=== PATIENT | female | born 1955 | race Caucasian/White ===

== ENCOUNTER → 2018-07-30 11:09 | Outpatient (CLI) | payer MEDICARE, OTHER, SELFPAY ==
[2018-07-30 11:39] LABS: Add Manual Diff / Slide Review NO; Basophils Absolute Auto 100 /uL (0-100); Basophils Percent Auto 0.7 % (0-2); Eosinophils Absolute Auto 300 /uL (0-450); Eosinophils Percent Auto 3.5 % (2-4); Hemoglobin 13.2 g/dL (12.0-16.0); Lymphocytes Absolute Auto 2400 /uL (1100-4500); Lymphocytes Percent Auto 28.2 % (25-40); Mean Corpuscular HGB Conc 34.8 % (30-36); Mean Corpuscular Hemoglobin 27.8 PG (26-34); Monocytes Absolute Auto 500 /uL (0-900); Monocytes Percent Auto 5.9 % (3-14); Neutrophils Absolute Auto 5200 /uL (1500-7000); Neutrophils Percent Auto 61.7 % (50-75); Platelet Count 242 X10^3/uL (150-400); Red Blood Cell Count 4.75 X10^6/uL (4.0-5.2); Red Cell Distribution Width 14.1 % (11.6-14.8); White Blood Cell Count 8.5 X10^3/uL (4.5-11.0)
[2018-07-30 11:51] LABS: Alanine Aminotransferase 37 IU/L (9-52); Albumin 4.6 g/dL (3.5-5.0); Albumin Globulin Ratio 1.7 (1.0-2.8); Alkaline Phosphatase 75 U/L (38-126); Aspartate Aminotransferase 29 IU/L (14-36); BUN Creatinine Ratio 17.5 (6-22); Bilirubin Total 0.5 mg/dL (0.2-1.3); Blood Urea Nitrogen 14 mg/dL (7-17); Calcium 9.2 mg/dL (8.4-10.2); Carbon Dioxide 28 mmol/L (22-32); Chloride 102 mmol/L (98-107); Cholesterol 174 mg/dL (140-199); Creatine Kinase 39 U/L (30-135); Estimated Glomerular Filt Rate > 60.0 mL/min (>60); Globulin 2.7 g/dL (1.7-4.1); Glucose 96 mg/dL (80-110); HDL Cholesterol 46 mg/dL (40-60); HEMOLYSIS < 15 (0-50); LDL Cholesterol Calculated 71 mg/dL (<100); Potassium 4.1 mmol/L (3.4-5.1); Sodium 139 mmol/L (137-145); Total Protein 7.3 g/dL (6.3-8.2); Triglycerides 283 mg/dL (35-150)
[2018-07-30 13:13] LABS: Free T4, Direct Thyroxine 0.85 ng/dL (0.78-2.19)
[2018-07-31 13:23] LABS: Aldolase 4.5 U/L (< 8.2)
== END ==
PROVIDERS: PCP Internal Medicine; Visit Provider Internal Medicine
DX: E03.9 Hypothyroidism, unspecified (principal); E78.5 Hyperlipidemia, unspecified; R06.00 Dyspnea, unspecified
CPT/HCPCS: 36415; 80053; 80061; 82085; 82550; 84439; 84443; 85025

== ENCOUNTER → 2018-08-03 08:31 | Outpatient (CLI) | payer MEDICARE, OTHER, SELFPAY ==
--- NOTE | 2018-08-03 | DI.ECHO.S_ITS ---
[facility] +---------+ : : [address] : [address] : : : : [id number] : : : : Phone: [phone]+ Echocardiogram Report + + :Name: BEN CHAKRABORTY Study Date: 08/03/2018 Height: 66 in : :[facility] Weight: 183 lb : : Gender: Female BSA: 1.9 m2 : :: 1955 Age: 63 yrs BP: 152/82 mmHg: :Reason For Study: Dyspnea : : Performed By: Kaitlyn Dawson : :Referring: NIRAV MENDOZA L : + + Interpretation Summary Normal sinus rhythm. Normal LV size, wall thickness, wall motion and LV systolic function. EF is 60-65%. Stage II diastolic dysfunction. No significant valvular abnormalities. No prior study available for comparison. Procedure: A two-dimensional transthoracic echocardiogram with color flow and Doppler was performed. The study quality was technically adequate. There is no prior echocardiogram noted for this patient. The patient was in normal sinus rhythm during the exam. Left Ventricle: The left ventricle is normal in size, wall thickness, and systolic function without any focal wall motion abnormalities. The ejection fraction is estimated to be 55-60%. Diastolic parameters suggest a relaxation abnormality of the left ventricle, consistent with probable normal filling pressures. Right Ventricle: The right ventricle grossly appears normal in size with probable normal systolic function. Atria: The left atrial size is normal. Right atrial size is normal. The interatrial septum is intact with no evidence for an atrial septal defect. Mitral Valve: The mitral valve is normal in structure and function. There is trace mitral regurgitation. Aortic Valve: The aortic valve opens well. No aortic regurgitation is present. Tricuspid Valve: The tricuspid valve is normal in structure and function. There is a trace or physiologic amount of tricuspid regurgitation. The right ventricular systolic pressure is estimated to be at least 25 mmHg based on an estimated right atrial pressure of 3 mm Hg. Pulmonic Valve: The pulmonic valve is not well visualized. There is a trace or physiologic amount of pulmonic regurgitation. Great Vessels: The aortic root is normal size. The ascending aorta is mildly enlarged. The IVC is of normal diameter and collapses greater than 50% with a sniff. This suggests a low right atrial pressure of 3 mm Hg. Pericardium/ Pleura There is no pericardial effusion. There is no pleural effusion. MMode/2D Measurements & Calculations LVIDd: 4.5 cm Ao root diam: 3.2 cm LVIDs: 3.4 cm Aortic Jxn: 3.0 cm FS: 23.3 % asc Aorta Diam: 3.8 cm EPSS: 0.69 cm Ao Arch Diam (Prox Trans): 2.9 cm IVSd: 1.1 cm LVPWd: 0.94 cm LV quiñones. diameter/BSA (cm/m^2): 2.3 LV sys. diameter/BSA (cm/m^2): 1.8 LA dimension: 3.8 cm RA long axis: 4.8 cm LA A2 area: 19.5 cm2 RA area: 16.1 cm2 LA A4 area: 20.1 cm2 RA vol: 45.4 ml LA length (vol): 5.4 cm RA : 23.6 ml/m2 LA vol: 61.3 ml IVC diam: 1.9 cm LA vol index: 31.8 ml/m2 RVDd major: 5.3 cm RVD1 (basal): 3.5 cm RVD2 (mid): 2.9 cm Doppler Measurements & Calculations Ao V2 max: 171.2 cm/sec MV E max moy: 91.6 cm/sec Ao V2 mean: 120.6 cm/sec MV A max moy: 88.1 cm/sec Ao max P.7 mmHg MV E/A: 1.0 Ao mean P.7 mmHg Med Peak E' Moy: 4.5 cm/sec Ao V2 VTI: 39.5 cm E/E' med: 20.2 Lat Peak E' Moy: 7.9 cm/sec E/E' lat: 11.6 E/e' average: 15.9 MV dec time: 0.19 sec MV P1/2t: 57.0 msec TR max moy: 236.3 cm/sec MV P1/2t max moy: 91.2 cm/sec TR max P.3 mmHg MVA(P1/2t): 3.9 cm2 PA V2 max: 90.9 cm/sec PA V2 mean: 56.7 cm/sec PA mean P.5 mmHg PA Accel Time: 0.14 sec Electronically signed by: Marika Fried M.D. on Reading Physician:08/04/2018 07:42 AM
== END ==
PROVIDERS: PCP Internal Medicine; Visit Provider Internal Medicine
DX: R06.00 Dyspnea, unspecified (principal)
CPT/HCPCS: 93306

== ENCOUNTER → 2018-08-17 12:36 | Outpatient (CLI) | payer MEDICARE, OTHER, SELFPAY ==
--- NOTE | 2018-08-25 10:49 | P.PFT.S_ITS ---
Pulmonary Function Test Referral & Results Date Patient Seen: 08/17/18 Requesting provider: Medina Stevenson Indication: Dyspnea Results: The spirometry demonstrates an FVC of 3.15 L which is 92% of predicted. The FEV1 was measured at 2.33 L which is 89% of predicted. The FEV1/FVC ratio was 70 for which is 96% of predicted. Following the administration of bronchodilator there was no appreciable change. Lung volumes show an SVC of 3.09 L which is 97% of predicted. The diffusing capacity was measured at 21.79 which is 80% of predicted. No hemoglobin value was provided, so no correction for potential anemia could be made, if appropriate. The maximum voluntary ventilation was normal Interpretation: This study demonstrates perhaps very mild obstructive lung dis ease based on slight reduction in FEV1. There is no evidence of benefit following bronchodilator administration There may also be a minimal reduction in diffusing capacity, unless patient is anemic Clinical correlation suggested
== END ==
PROVIDERS: PCP Internal Medicine; Visit Provider Internal Medicine
DX: R06.09 Other forms of dyspnea (principal)
CPT/HCPCS: 94060; 94726; 94729

== ENCOUNTER → 2018-09-11 13:27 | Outpatient (CLI) | payer MEDICARE, OTHER, SELFPAY ==
--- NOTE | 2018-09-11 15:08 | P.PCN_ITS ---
Cardiac Stress Test Report Referral & Results Date Patient Seen: 09/11/18 Requesting provider: Medina Stevenson Indication: Dyspnea with exertion Rest ECG: Unremarkable Procedure Note: Today following both written and verbal informed consent the patient was exercised according to a standard Brian protocol patient went for a total of 8 minutes 17 seconds achieving a maximum heart rate of 155 maximum systolic blood pressure of to under 10. This is approximately 10.1 METS. Exercise was terminated at this point because of inability the patient to continue because of dyspnea and targets were met. Patient was also given Cardiolite through a previously started Hep-Lock IV by the nuclear licensing engineer approximately 1 minute prior to the cessation of exercise. No ST-T segment changes Normal heart rate and blood pressure response Functional aerobic impairment rated-20% on the active scale or 20% better than average Rare PVC identified Impression: No ECG evidence of ischemia Better than average exercise capacity as above Please see perfusion imaging report as well Please note: Actual ECG tracings can be found in the PACS system.
--- NOTE | 2018-09-12 15:11 | DI.NM.S_ITS ---
DATE OF SERVICE: 09/11/2018 PROCEDURE: Exercise perfusion study. INDICATIONS: Shortness of breath with underlying hypertension, hyperlipidemia. RADIOPHARMACEUTICAL: 23.3 mCi technetium-99m Myoview IV was injected at stress and 26.9 mCi technetium-99m Myoview IV was injected at rest. CARDIAC STRESS: Patient underwent exercise perfusion study under the supervision of an attending staff. She walked on Brian protocol for 8 minutes 17 seconds, achieved 10.1 Mets of workload, functional aerobic impairment -20% and 100 % of target heart rate. Baseline blood pressure 130/84. Peak blood pressure 210/100. Baseline EKG revealed sinus rhythm. Stress EKG did not reveal any significant ischemic changes. Occasional PACs. Patient had fatigue and dyspnea during exercise. RAW DATA: There was adequate myocardial uptake. GATED STUDY: Resting LV ejection fraction 78% and stress LV ejection fraction 87%. No transient ischemic dilatation. Resting end-diastolic volume is 91 mL. TID ratio is 0.82, which is within normal limits. Lung/heart ratio is 0.17. MYOCARDIAL PERFUSION SCAN: Stress supine, resting supine, and stress prone images were compared to each other. Resting supine images revealed small-sized mildly decreased perfusion of mid anterior wall and distal anterior septum. However, stress supine and stress prone images revealed normal myocardial perfusion. No convincing ischemia infarction pattern. CONCLUSION: I will call this study a normal myocardial perfusion study without any evidence of convincing ischemia infarction. No ischemic changes during EKG. Mildly hypertensive blood pressure response. Good exercise capacity. Functional aerobic impairment -20%. Preserved left ventricular (LV) function. Overall this is a low-risk myocardial perfusion study. Martina Ackerman - ALEXANDRE/penelope/ doc#: [id number]/job#: [id number] dd: 09/12/2018 12:39:00 dt: 09/12/2018 15:01:00 DICTATING MD/COPIES TO: Bobby Mukherjee MD COPIES MNE: JULY
== END ==
PROVIDERS: PCP Internal Medicine; Visit Provider Internal Medicine
DX: R06.00 Dyspnea, unspecified (principal); R06.02 Shortness of breath; I10 Essential (primary) hypertension; E78.5 Hyperlipidemia, unspecified
CPT/HCPCS: 78452; 93016; 93017; 93018; A9502

== ENCOUNTER → 2018-10-10 11:05 | Outpatient (CLI) | payer MEDICARE, OTHER, SELFPAY ==
--- NOTE | 2018-10-10 11:11 | DI.CT.S_ITS ---
PROCEDURE: CT CHEST HIGH RESOLUTION INDICATIONS: Chronic obstructive pulmonary disease, unspecified TECHNIQUE: Noncontrast 1.0 and 5.0 mm thick contiguous axial sections from the pulmonary apex to the posterior costophrenic angles, with 7 mm thick coronal and sagittal MIP reformats. 1 mm thick dynamic expiratory images acquired through the upper, mid, and lower lungs. 1.0 mm thick axial sections acquired from the maco to the posterior costophrenic angles in the prone end-inspiration position. For radiation dose reduction, the following was used: automated exposure control, adjustment of mA and/or kV according to patient size. COMPARISON: None. FINDINGS: Image quality: Excellent. Lungs: Scattered scarring/atelectasis. No evidence of honeycombing. No drainable opacities seen. No mosaic lung attenuation identified. No bronchiectasis Pleura: No pleural effusions or pneumothorax. Mediastinum: Heart size is normal. No pericardial effusion. Thoracic aorta and central pulmonary arteries are normal in size. Esophagus is normal in caliber. Bones and chest wall: No suspicious bony lesions. No vertebral body compression fractures. Abdomen: Visualized upper abdominal solid organs and bowel loops appear normal. IMPRESSION: Mild scattered scarring/atelectasis otherwise clear lungs. Dictated by: Jose Cervantes M.D. on 10/10/2018 at 12:34 Approved by: Jose Cervantes M.D. on 10/10/2018 at 12:38
== END ==
PROVIDERS: PCP Internal Medicine; Visit Provider Internal Medicine
DX: J44.9 Chronic obstructive pulmonary disease, unspecified (principal); J98.4 Other disorders of lung
CPT/HCPCS: 71250

== ENCOUNTER → 2018-10-22 11:41 | Outpatient (CLI) | payer MEDICARE, OTHER, SELFPAY ==
--- NOTE | 2018-10-22 | DI.MG.S_ITS ---
BILATERAL DIGITAL SCREENING MAMMOGRAM 3D/2D WITH CAD: 10/22/2018 CLINICAL: Routine screening. Family history of breast cancer. Comparison is made to exams dated: 10/05/2017 mammogram, 05/12/2016 mammogram, and 05/04/2015 mammogram - [facility]. The tissue of both breasts is predominantly fatty. Current study was also evaluated with a Computer Aided Detection (CAD) system. There is a benign biopsy clip in the right breast. No significant masses, calcifications, or other findings are seen in either breast. There has been no significant interval change. IMPRESSION: NEGATIVE There is no mammographic evidence of malignancy. A 1 year screening mammogram is recommended. This exam was interpreted at Station ID: [id number]. NOTE: For mammograms, a report in lay terms will be sent to the patient. Approximately 15% of breast malignancies will not be visualized mammographically. In the management of a palpable breast mass, a negative mammogram must not discourage biopsy of a clinically suspicious lesion. Electronically Signed By: Roel cardenas/ismael:10/22/2018 12:56:33 letter sent: Normal Exam ACR BI-RADS Category 1: Negative [id number]
== END ==
PROVIDERS: PCP Internal Medicine; Visit Provider Internal Medicine
DX: Z12.31 Encounter for screening mammogram for malignant neoplasm of breast (principal); Z80.3 Family history of malignant neoplasm of breast
CPT/HCPCS: 77063; 77067

== ENCOUNTER → 2018-11-26 10:39 | Outpatient (CLI) | payer MEDICARE, OTHER, SELFPAY ==
[2018-11-26 11:59] LABS: Cholesterol 247 mg/dL (140-199); HDL Cholesterol 51 mg/dL (40-60); Triglycerides 458 mg/dL (35-150)
== END ==
PROVIDERS: PCP Internal Medicine; Visit Provider Internal Medicine
DX: E78.5 Hyperlipidemia, unspecified (principal)
CPT/HCPCS: 36415; 80061

== ENCOUNTER → 2018-12-13 09:47 | Outpatient (CLI) | payer MEDICARE, OTHER, SELFPAY ==
[2018-12-13 10:58] LABS: Cholesterol 165 mg/dL (140-199); HDL Cholesterol 48 mg/dL (40-60); LDL Cholesterol Calculated 73 mg/dL (<100); Triglycerides 220 mg/dL (35-150)
== END ==
PROVIDERS: PCP Internal Medicine; Visit Provider Internal Medicine
DX: E78.5 Hyperlipidemia, unspecified (principal)
CPT/HCPCS: 36415; 80061

== ENCOUNTER → 2019-03-08 11:56 | Outpatient (CLI) | payer MEDICARE, OTHER, SELFPAY ==
[2019-03-08 12:31] LABS: Add Manual Diff / Slide Review NO; Basophils Absolute Auto 100 /uL (0-100); Basophils Percent Auto 0.8 % (0-2); Eosinophils Absolute Auto 300 /uL (0-450); Eosinophils Percent Auto 3.7 % (2-4); Hematocrit 39.3 % (36-46); Hemoglobin 13.4 g/dL (12.0-16.0); Lymphocytes Absolute Auto 2300 /uL (1100-4500); Lymphocytes Percent Auto 25.7 % (25-40); Mean Corpuscular HGB Conc 34.1 % (30-36); Mean Corpuscular Hemoglobin 27.6 PG (26-34); Mean Corpuscular Volume 80.9 fL (80-100); Monocytes Absolute Auto 600 /uL (0-900); Monocytes Percent Auto 6.1 % (3-14); Neutrophils Absolute Auto 5800 /uL (1500-7000); Neutrophils Percent Auto 63.7 % (50-75); Platelet Count 240 X10^3/uL (150-400); Red Blood Cell Count 4.85 X10^6/uL (4.0-5.2); Red Cell Distribution Width 14.3 % (11.6-14.8); White Blood Cell Count 9.1 X10^3/uL (4.5-11.0)
[2019-03-08 12:47] LABS: Hemoglobin A1C% w Est Avg Glu 5.3 % (4.0-6.0)
[2019-03-08 13:27] LABS: Alanine Aminotransferase 31 IU/L (9-52); Albumin 4.5 g/dL (3.5-5.0); Albumin Globulin Ratio 1.9 (1.0-2.8); Alkaline Phosphatase 72 U/L (38-126); Aspartate Aminotransferase 26 IU/L (14-36); BUN Creatinine Ratio 21.4 (6-22); Bilirubin Total 0.5 mg/dL (0.2-1.3); Blood Urea Nitrogen 15 mg/dL (7-17); Calcium 9.7 mg/dL (8.4-10.2); Carbon Dioxide 30 mmol/L (22-32); Chloride 102 mmol/L (98-107); Estimated Glomerular Filt Rate > 60.0 mL/min (>60); Globulin 2.4 g/dL (1.7-4.1); Glucose 87 mg/dL (80-110); HEMOLYSIS < 15 (0-50); Potassium 4.5 mmol/L (3.4-5.1); Sodium 141 mmol/L (137-145); Total Protein 6.9 g/dL (6.3-8.2)
[2019-03-08 14:11] LABS: Vitamin B12 483 pg/mL (239-931)
[2019-03-11 19:34] LABS: Albumin 4.2 g/dL (3.8-4.8); Alpha 1 Globulin 0.3 g/dL (0.2-0.3); Alpha 2 Globulin 0.7 g/dL (0.5-0.9); Beta 1 Globulin 0.5 g/dL (0.4-0.6); Gamma Globulin 0.7 g/dL (0.8-1.7); Protein, Total 6.7 g/dL (6.1-8.1)
== END ==
PROVIDERS: PCP Internal Medicine; Visit Provider Internal Medicine
DX: G62.9 Polyneuropathy, unspecified (principal); R73.9 Hyperglycemia, unspecified
CPT/HCPCS: 36415; 80053; 82607; 83036; 84155; 84165; 85025

== ENCOUNTER → 2019-04-05 09:41 | Outpatient (CLI) | payer MEDICARE, OTHER, SELFPAY ==
--- NOTE | 2019-04-05 | DI.US.S_ITS ---
PROCEDURE: US CAROTID DOPPLER BI INDICATIONS: BRUIT OF LEFT CAROTID ARTERY TECHNIQUE: Color and pulse Doppler interrogation was performed of both carotid systems, with image documentation and velocity measurements. COMPARISON: None. FINDINGS: Stenosis calculations are based on SRU (Society of Radiologists in Ultrasound) criteria. Right side: Brachial blood pressure: 121/71 mm Hg. Common carotid artery peak systolic velocity: 70 cm/sec. Internal carotid artery peak systolic velocity: 109 cm/sec. Internal carotid artery end diastolic velocity: 43 cm/sec. External carotid artery peak systolic velocity: 100 cm/sec. ICA/CCA peak systolic ratio: 1.4. Irvin scale imaging description: Minimal intimal wall thickening. Percent internal carotid artery stenosis: Less than 50%. Vertebral artery: Flow direction is antegrade. Left side: Brachial blood pressure: 124/82 mm Hg. Common carotid artery peak systolic velocity: 85 cm/sec. Internal carotid artery peak systolic velocity: 96 cm/sec. Internal carotid artery end diastolic velocity: 37 cm/sec. External carotid artery peak systolic velocity: 73 cm/sec. ICA/CCA peak systolic ratio: 1.1. Irvin scale imaging description: Minimal intimal thickening. Percent internal carotid artery stenosis: Less than 50%. Vertebral artery: Flow direction is antegrade. IMPRESSION: Less than 50% bilateral internal carotid artery stenosis. Dictated by: Rosendo Berkowitz [facility] Interpreted: Delfino Holder MD on 04/05/2019 at 11:48 Approved by: Delfino Holder M.D. on 04/05/2019 at 15:18
[2019-04-09 14:09] LABS: Free Kappa Light Chain 11.2 mg/L (3.3-19.4); Free Kappa/ Lambda Ratio 1.02 (0.26-1.65)
[2019-04-09 23:20] LABS: Albumin 100 %; Protein/ Creatinine Ratio 93 mg/g creat (21-161); Total Urine Protein 6 mg/dL (5-24); Urine Creatinine, Random 64 mg/dL (20-275)
== END ==
PROVIDERS: PCP Internal Medicine; Visit Provider Internal Medicine
DX: R09.89 Other specified symptoms and signs involving the circulatory and respiratory systems (principal); D80.1 Nonfamilial hypogammaglobulinemia; I65.23 Occlusion and stenosis of bilateral carotid arteries
CPT/HCPCS: 36415; 83883; 84156; 84166; 93880

== ENCOUNTER → 2019-04-11 10:47 | Outpatient (CLI) | payer MEDICARE, OTHER, SELFPAY | PROVIDERS: PCP Internal Medicine; Visit Provider Internal Medicine | DX: E78.5 Hyperlipidemia, unspecified (principal); R20.2 Paresthesia of skin | CPT/HCPCS: 95885; 95886; 95909 ==

== ENCOUNTER → 2020-01-03 12:36 | Outpatient (CLI) | payer MEDICARE, OTHER, SELFPAY ==
--- NOTE | 2020-01-03 | DI.MG.S_ITS ---
BILATERAL DIGITAL SCREENING MAMMOGRAM 3D/2D WITH CAD: 01/03/2020 CLINICAL: Routine screening. Family history of breast cancer. Comparison is made to exams dated: 10/22/2018 mammogram - [facility], 10/05/2017 mammogram, and 05/12/2016 mammogram - [facility]. The tissue of both breasts is predominantly fatty. Current study was also evaluated with a Computer Aided Detection (CAD) system. There is a possible new 4 mm mass in the left breast at 12 o'clock anterior depth. No other significant masses, calcifications, or other findings are seen in either breast. IMPRESSION: INCOMPLETE: NEEDS ADDITIONAL IMAGING EVALUATION The possible new 4 mm mass in the left breast is indeterminate. Additional views with possible ultrasound are recommended. This exam was interpreted at Station ID: [id number]. NOTE: For mammograms, a report in lay terms will be sent to the patient. Approximately 15% of breast malignancies will not be visualized mammographically. In the management of a palpable breast mass, a negative mammogram must not discourage biopsy of a clinically suspicious lesion. Electronically Signed By: Edson shaw/ismael:01/03/2020 13:12:25 letter sent: Additional Imaging Needed ACR BI-RADS Category 0: Incomplete [id number]
== END ==
PROVIDERS: PCP Internal Medicine; Referring Provider Internal Medicine; Visit Provider Internal Medicine
DX: Z12.31 Encounter for screening mammogram for malignant neoplasm of breast (principal); Z80.3 Family history of malignant neoplasm of breast
CPT/HCPCS: 77063; 77067

== ENCOUNTER → 2020-01-16 08:36 | Outpatient (CLI) | payer MEDICARE, OTHER, SELFPAY ==
--- NOTE | 2020-01-16 | DI.MG.S_ITS ---
UNILATERAL LEFT DIGITAL DIAGNOSTIC MAMMOGRAM 3D/2D WITH ADDITIONAL VIEWS: 01/16/2020 CLINICAL: Additional evaluation requested from prior study. Comparison is made to exams dated: 01/03/2020 mammogram, 10/22/2018 mammogram - [facility], 10/05/2017 mammogram, 05/12/2016 mammogram, and 05/04/2015 mammogram - [facility]. The tissue of left breast is predominantly fatty. There is a 0.4 cm round mass with a circumscribed margin in the left breast at 12 o'clock anterior depth. No other significant masses or calcifications are seen in the breast. IMPRESSION: INCOMPLETE: NEEDS ADDITIONAL IMAGING EVALUATION The 0.4 cm round mass in the left breast is indeterminate. A targeted ultrasound is recommended and will immediately follow. This exam was interpreted at Station ID: [id number]. NOTE: For mammograms, a report in lay terms will be sent to the patient. Approximately 15% of breast malignancies will not be visualized mammographically. In the management of a palpable breast mass, a negative mammogram must not discourage biopsy of a clinically suspicious lesion. Electronically Signed By: Delfino Holder M.D. slc/:01/16/2020 09:22:34 ACR BI-RADS Category 0: Incomplete [id number]
--- NOTE | 2020-01-16 | DI.US.S_ITS ---
LIMITED ULTRASOUND OF LEFT BREAST AND AXILLA: 01/16/2020 CLINICAL: Lt breast abnormal Mammo. Comparison is made to exams dated: 01/16/2020 mammogram, 01/03/2020 mammogram, 10/22/2018 mammogram - [facility], 10/05/2017 mammogram, and 05/12/2016 mammogram - [facility]. Color flow and real-time ultrasound of the left breast axilla were performed. Irvin scale images of the real-time examination were reviewed. There is a 0.3 cm x 0.3 cm x 0.2 cm round cyst in the left breast at 12 o'clock anterior depth 2 cm from the nipple. This round cyst displays an echogenic boundary and internal echoes. This correlates with mammography findings. Color flow imaging demonstrates that there is an adjacent vascularity. IMPRESSION: PROBABLY BENIGN The 0.3 cm round cyst in the left breast is consistent with a complicated cyst and is probably benign. A follow-up mammogram and an ultrasound in 6 months is recommended to demonstrate stability. This exam was interpreted at Station ID: [id number]. Electronically Signed By: Delfino Holder M.D. slc/:01/16/2020 10:52:53 letter sent: Followup Recommended Ultrasound BI-RADS: 3 Probably benign
== END ==
PROVIDERS: PCP Internal Medicine; Referring Provider Internal Medicine; Visit Provider Internal Medicine
DX: R92.8 Other abnormal and inconclusive findings on diagnostic imaging of breast (principal); N60.02 Solitary cyst of left breast
CPT/HCPCS: 76642; 77065; G0279

== ENCOUNTER → 2020-07-13 08:21 | Outpatient (CLI) | payer MEDICARE, OTHER, SELFPAY ==
--- NOTE | 2020-07-13 | DI.MG.S_ITS ---
UNILATERAL LEFT DIGITAL DIAGNOSTIC MAMMOGRAM 3D/2D SHORT-TERM FOLLOW-UP: 07/13/2020 CLINICAL: Patient returns for a 6 month follow up of the left breast. Comparison is made to exams dated: 01/16/2020 mammogram, 01/03/2020 mammogram, and 10/22/2018 mammogram - [facility]. The tissue of left breast is predominantly fatty. There is a 0.4 cm round mass with a circumscribed margin in the left breast at 12 o'clock anterior depth. This is not significantly changed and correlates with prior ultrasound findings. No other significant masses or calcifications are seen in the breast. IMPRESSION: INCOMPLETE: NEEDS ADDITIONAL IMAGING EVALUATION The 0.4 cm round mass in the left breast most likely is a complicated cyst as noted on previous ultrasound; however it remains indeterminate. An ultrasound is recommended for further evaluation and is scheduled to immediately follow this examination. This exam was interpreted at Station ID: [id number]. NOTE: For mammograms, a report in lay terms will be sent to the patient. Approximately 15% of breast malignancies will not be visualized mammographically. In the management of a palpable breast mass, a negative mammogram must not discourage biopsy of a clinically suspicious lesion. Electronically Signed By: Roel Buck M.D. aty/:07/13/2020 09:11:44 ACR BI-RADS Category 0: Incomplete 3340F
--- NOTE | 2020-07-13 | DI.US.S_ITS ---
ULTRASOUND OF LEFT BREAST: 07/13/2020 CLINICAL: 6 month follow-up of cyst. Comparison is made to exams dated: 07/13/2020 mammogram, 01/16/2020 ultrasound, 01/16/2020 mammogram, 01/03/2020 mammogram, 10/22/2018 mammogram - [facility], and 10/05/2017 mammogram - [facility]. Color flow and real-time ultrasound of the left breast were performed. Irvin scale images of the real-time examination were reviewed. Redemonstration of stable 0.3 cm x 0.3 cm x 0.2 cm round cyst in the left breast at 12 o'clock anterior depth 2 cm from the nipple. This round cyst displays an echogenic boundary and internal echoes. This correlates with mammography findings. Color flow imaging demonstrates that there is an adjacent vascularity. IMPRESSION: PROBABLY BENIGN The stable 0.3 cm x 0.3 cm x 0.2 cm round cyst in the left breast is consistent with a complicated cyst and is probably benign. A follow-up left mammogram and a left ultrasound in 6 months is recommended to demonstrate stability. The patient will also be due for screening mammogram of the contralateral breast at that time. Findings and recommendations were conveyed to the patient during today's evaluation. This exam was interpreted at Station ID: [id number]. Electronically Signed By: Roel Buck M.D. aty/:07/13/2020 10:35:04 letter sent: Followup Recommended Ultrasound BI-RADS: 3 Probably benign
[2020-07-13 09:59] LABS: Alanine Aminotransferase 26 IU/L (<35); Albumin 4.6 g/dL (3.5-5.0); Albumin Globulin Ratio 1.4 (1.0-2.8); Alkaline Phosphatase 86 U/L (38-126); Aspartate Aminotransferase 29 IU/L (14-36); BUN Creatinine Ratio 19.7 (6-22); Bilirubin Total 0.4 mg/dL (0.2-1.3); Blood Urea Nitrogen 15 mg/dL (7-17); Calcium 9.9 mg/dL (8.4-10.2); Carbon Dioxide 31 mmol/L (22-32); Chloride 103 mmol/L (98-107); Cholesterol 195 mg/dL (140-199); Estimated Glomerular Filt Rate > 60.0 mL/min (>60); Globulin 3.2 g/dL (1.7-4.1); Glucose 97 mg/dL (80-110); HDL Cholesterol 55 mg/dL (40-60); HEMOLYSIS < 15 (0-50); LDL Cholesterol Calculated 82 mg/dL (<100); Potassium 4.4 mmol/L (3.4-5.1); Sodium 138 mmol/L (137-145); Total Protein 7.8 g/dL (6.3-8.2); Triglycerides 290 mg/dL (35-150)
[2020-07-13 10:28] LABS: TSH w/ Reflex to FT4 5.62 uIU/mL (0.47-4.68)
[2020-07-13 11:31] LABS: Free T4, Direct Thyroxine 1.01 ng/dL (0.78-2.19)
== END ==
PROVIDERS: Internal Medicine; PCP Internal Medicine; Referring Provider Internal Medicine; Visit Provider Internal Medicine
DX: R92.8 Other abnormal and inconclusive findings on diagnostic imaging of breast (principal); N60.02 Solitary cyst of left breast
CPT/HCPCS: 36415; 76642; 77065; 80053; 80061; 84439; 84443; G0279

== ENCOUNTER → 2020-08-21 14:07 | Outpatient (CLI) | payer MEDICARE, OTHER, SELFPAY ==
--- NOTE | 2020-08-21 | DI.RAD.S_ITS ---
PROCEDURE: XR DEXA AXIAL SKELETON INDICATIONS: Asymptomatic menopausal state COMPARISON: None. FINDINGS: This blank DEXA report has been sent in error by the PACS system. The correct and complete report will be forthcoming in 1-2 days. Thank you for your patience and understanding. Dictated by: Lela Bull MD, PhD on 08/21/2020 at 17:23 Approved by: Lela Bull MD, PhD on 08/21/2020 at 17:23
== END ==
PROVIDERS: PCP Internal Medicine; Referring Provider Internal Medicine; Visit Provider Internal Medicine
DX: M85.851 Other specified disorders of bone density and structure, right thigh (principal); Z78.0 Asymptomatic menopausal state
CPT/HCPCS: 77080

== ENCOUNTER → 2020-10-08 08:22 | Outpatient (CLI) | payer MEDICARE, OTHER, SELFPAY | PROVIDERS: PCP Internal Medicine; Referring Provider Internal Medicine; Visit Provider Internal Medicine | DX: E03.9 Hypothyroidism, unspecified (principal) | CPT/HCPCS: 36415; 84443 ==

== ENCOUNTER → 2020-10-19 11:12 | Outpatient (CLI) | payer MEDICARE, OTHER, SELFPAY ==
[2020-10-19 13:25] LABS: COVID19 -Nasal RAPID Negative (Negative)
== END ==
PROVIDERS: PCP Internal Medicine; Visit Provider Student in an Organized Health Care Education/Training Program
DX: Z01.812 Encounter for preprocedural laboratory examination (principal); Z20.822 Contact with and (suspected) exposure to COVID-19
CPT/HCPCS: 87635; C9803

== ENCOUNTER 2020-10-21 10:26 | Day surgery (SDC) | payer MEDICARE, OTHER, SELFPAY ==
[2020-10-21 11:05] VITALS: BP 135/75; PULSE 72; RESP 16; TEMP 36.7; O2SAT 98; BMI 28.5
[2020-10-21] MEDS: SODIUM CHLORIDE 0.9% 1,000 ML 84 ML IV (11:16)
--- NOTE | 2020-10-21 11:20 | PM.HP.1 ---
History of Present Illness History of Present Illness Date Patient Seen: 10/21/20 Chief complaint: DX COLONOSCOPY Patient History Family & Social History Social History: household members spouse Tobacco & Substance use: Smoking Status Never smoker alcohol intake frequency holiday/special occasion Substance Use Type does not use Meds Home Medications and Allergies Home Medications Medication Instructions Recorded Confirmed Type alpha lipoic acid 200 mg PO DAILY 10/21/20 10/21/20 History ascorbic acid (vitamin C) [Vitamin 500 mg PO DAILY 10/21/20 10/21/20 History C] cholecalciferol (vitamin D3) 100 mcg PO DAILY 10/21/20 10/21/20 History [Vitamin D3] coenzyme Q10 [CoQ-10] 300 mg PO DAILY 10/21/20 10/21/20 History losartan 25 mg PO DAILY 10/21/20 10/21/20 History omega-3 fatty acids-vitamin E 1,000 cap PO DAILY 10/21/20 10/21/20 History [Fish Oil] rosuvastatin 5 mg PO DAILY 10/21/20 10/21/20 History thyroid (pork) [[place] Thyroid] 60 mg PO DAILY 10/21/20 10/21/20 History vitamin A 2,400 mcg PO DAILY 10/21/20 10/21/20 History vitamin B complex [B Complex] 1 cap PO DAILY 10/21/20 10/21/20 History zinc 30 mg PO DAILY 10/21/20 10/21/20 History Allergies Allergy/AdvReac Type Severity Reaction Status Date / Time promethazine [From Phenergan] Allergy Severe Hallucinati Verified 10/21/20 10:56 ng Egg Derived Allergy Mild Rash Verified 10/21/20 10:57 Exam Vital Signs (past 8 hours): - 10/21/20 11:05 Temperature 98.1 F Pulse Rate 72 Respiratory Rate 16 Blood Pressure 135/75 Pulse Oximetry 98 Oxygen Delivery Method Room Air Narrative Exam Narrative: Oropharynx free of lesions Chest clear to auscultation percussion Cardiac exam reveals no S3 or murmur Assessment & Plan Assessment & Plan narrative: History of colon polyps need for follow-up colonoscopy. Risks, benefits, alternatives have been explained. Of note is she has just completed a course of treatment for pinworms
--- NOTE | 2020-10-21 11:21 | PM.OP.ENDO ---
Operative Date/Time/Diagnoses Date of procedure: 10/21/20 Pre-op diagnosis: See indication and findings Procedure & Clinicians Study performed: Colonoscopy Same procedure as scheduled: Yes Indications: History of colon polyps Surgeon: Sharifa Desai Procedure Notes Procedure in detail: After informed consent was obtained patient was placed in left lateral decubitus position. The video colonoscope was introduced the rectum slowly advanced cecum. Preparation was good. On slow withdrawal mucosa was carefully examined. The scope was removed. The patient tolerated procedure well. Blood loss none Complications none Sedation Total sedation time 24 minutes Versed 6 mg fentanyl 200 mg IV titration Findings 1. Extremely tortuous colon particularly in the transverse colon due to previous surgery. 2. Otherwise negative colonoscopy to cecum. I would suggest that we will with no polyps visible today that, according to new guidelines, she should have follow-up colonoscopy in 10 years. I would think this best be done with anesthesia.
[2020-10-21] MEDS: fentaNYL 100 MCG/2 ML INJ IV (11:52)
[2020-10-21] MEDS: MIDAZOLAM 5 MG/5 ML VIAL IV (11:54)
[2020-10-21 12:20] VITALS: BP 130/65; PULSE 72; RESP 12; TEMP 37.4; O2SAT 94
[2020-10-21 12:25] VITALS: BP 117/63; PULSE 68; RESP 16; O2SAT 95
[2020-10-21 12:30] VITALS: BP 103/59; PULSE 70; RESP 14; O2SAT 95
[2020-10-21 12:34] VITALS: BP 121/69; PULSE 64; RESP 14; O2SAT 95
[2020-10-21 12:36] VITALS: BP 112/72; PULSE 67; RESP 18; TEMP 36.3; O2SAT 95
== END 2020-10-21 12:52 | disposition home or self-care (01) ==
PROVIDERS: PCP Internal Medicine; Referring Provider Internal Medicine Gastroenterology; Visit Provider Internal Medicine Gastroenterology
PROC: 0DJD8ZZ Inspection of Lower Intestinal Tract, Via Natural or Artificial Opening Endoscopic (ICD-10-PCS; CPT 45378; principal; 2020-10-21 11:30)
DX: Z12.11 Encounter for screening for malignant neoplasm of colon (principal); Z86.010 Personal history of colon polyps
CPT/HCPCS: G0105; J2250; J3010

== ENCOUNTER → 2020-11-11 10:44 | Outpatient (CLI) | payer MEDICARE, OTHER, SELFPAY ==
[2020-11-11 11:17] LABS: Add Manual Diff / Slide Review NO; Basophils Absolute Auto 100 /uL (0-100); Eosinophils Absolute Auto 400 /uL (0-450); Eosinophils Percent Auto 4.4 % (2-4); Hematocrit 40.1 % (36-46); Hemoglobin 13.9 g/dL (12.0-16.0); Lymphocytes Absolute Auto 2700 /uL (1100-4500); Lymphocytes Percent Auto 27.8 % (25-40); Mean Corpuscular HGB Conc 34.6 % (30-36); Mean Corpuscular Hemoglobin 27.5 PG (26-34); Mean Corpuscular Volume 79.4 fL (80-100); Monocytes Absolute Auto 600 /uL (0-900); Monocytes Percent Auto 6.2 % (3-14); Neutrophils Absolute Auto 5900 /uL (1500-7000); Neutrophils Percent Auto 60.6 % (50-75); Platelet Count 246 X10^3/uL (150-400); Red Blood Cell Count 5.04 X10^6/uL (4.0-5.2); Red Cell Distribution Width 14.2 % (11.6-14.8); White Blood Cell Count 9.8 X10^3/uL (4.5-11.0)
[2020-11-11 12:12] LABS: Vitamin B12 431 pg/mL (239-931)
== END ==
PROVIDERS: PCP Internal Medicine; Referring Provider Internal Medicine; Visit Provider Internal Medicine
DX: R53.82 Chronic fatigue, unspecified (principal)
CPT/HCPCS: 36415; 82607; 85025

== ENCOUNTER → 2020-12-31 12:42 | Outpatient (CLI) | payer MEDICARE, OTHER, SELFPAY ==
--- NOTE | 2020-12-31 | DI.MG.S_ITS ---
BILATERAL DIGITAL DIAGNOSTIC MAMMOGRAM 3D/2D: 12/31/2020 CLINICAL: Short term follow up of the left breast, due for bilateral imaging. Comparison is made to exams dated: 07/13/2020 mammogram, 01/16/2020 mammogram, and 01/03/2020 mammogram - [facility]. There are scattered fibroglandular elements in both breasts. There is an oval equal density mass with an indistinct and circumscribed margin in the left breast at 12 o'clock anterior depth. This is not significantly changed. No other significant masses, calcifications, or other findings are seen in either breast. IMPRESSION: INCOMPLETE: NEEDS ADDITIONAL IMAGING EVALUATION The oval equal density mass in the left breast is indeterminate. An ultrasound is recommended. Ultrasound will be performed immediately following the current exam. This exam was interpreted at Station ID: [id number]. NOTE: For mammograms, a report in lay terms will be sent to the patient. Approximately 15% of breast malignancies will not be visualized mammographically. In the management of a palpable breast mass, a negative mammogram must not discourage biopsy of a clinically suspicious lesion. Electronically Signed By: Xander Hansen M.D. ddp/:12/31/2020 13:14:59 ACR BI-RADS Category 0: Incomplete [id number]
--- NOTE | 2020-12-31 | DI.US.S_ITS ---
LIMITED ULTRASOUND OF LEFT BREAST: 12/31/2020 CLINICAL: Patient returns today to evaluate an asymmetry in the left breast. Comparison is made to exams dated: 12/31/2020 mammogram, 07/13/2020 ultrasound, 07/13/2020 mammogram, 01/16/2020 ultrasound, 01/16/2020 mammogram, and 01/03/2020 mammogram - [facility]. Color flow and real-time ultrasound of the left breast 12 o'clock region were performed on the areas of interest. There is a stable 0.3 cm x 0.3 cm x 0.2 cm oval cyst in the left breast at 12 o'clock anterior depth. This oval cyst is hypoechoic with internal echoes. This correlates with mammography findings. Color flow imaging demonstrates that there is no vascularity present. IMPRESSION: PROBABLY BENIGN The stable 0.3 cm x 0.3 cm x 0.2 cm oval cyst in the left breast is probably benign. A follow-up mammogram and an ultrasound in 12 months are recommended to demonstrate 2 year stability. This exam was interpreted at Station ID: [id number]. Electronically Signed By: Xander Hansen M.D. [email or web address]/:12/31/2020 14:37:03 letter sent: Followup Recommended Ultrasound BI-RADS: 3 Probably benign
== END ==
PROVIDERS: PCP Internal Medicine; Referring Provider Internal Medicine; Visit Provider Internal Medicine
DX: R92.8 Other abnormal and inconclusive findings on diagnostic imaging of breast (principal); N60.02 Solitary cyst of left breast
CPT/HCPCS: 76642; 77066; G0279

== ENCOUNTER → 2021-12-31 10:22 | Outpatient (CLI) | payer MEDICARE, OTHER, SELFPAY ==
--- NOTE | 2021-12-31 | DI.US.S_ITS ---
ULTRASOUND OF LEFT BREAST: 12/31/2021 CLINICAL: 6 month follow-up of cysts. Comparison is made to exams dated: 12/31/2021 mammogram, 12/31/2020 ultrasound, 12/31/2020 mammogram, 07/13/2020 ultrasound, 07/13/2020 mammogram, and 01/16/2020 ultrasound - [facility]. Color flow ultrasound of the left breast was performed. Irvin scale images of the real-time examination were reviewed. There is a 0.4 cm x 0.3 cm x 0.3 cm round cyst in the left breast at 12 o'clock anterior depth 2 cm from the nipple. This round cyst is hypoechoic. This abnormality is not significantly changed and correlates with mammography findings. Color flow imaging demonstrates that there is an adjacent vascularity. IMPRESSION: BENIGN There is no sonographic evidence of malignancy. The 0.4 cm cyst in the left breast has been relatively stable for two years, is consistent with a complicated cyst and is benign. Return to annual mammogram screening schedule is recommended. Findings and recommendations were conveyed to the patient at time of exam. This exam was interpreted at Station ID: [id number]. Electronically Signed By: Gisella yoder/:12/31/2021 11:15:21 letter sent: Normal Exam Ultrasound BI-RADS: 2 Benign
--- NOTE | 2021-12-31 | DI.MG.S_ITS ---
BILATERAL DIGITAL DIAGNOSTIC MAMMOGRAM 3D/2D: 12/31/2021 CLINICAL: Short term follow up of the left breast, due for bilateral imaging. Comparison is made to exams dated: 12/31/2020 ultrasound, 12/31/2020 mammogram, 07/13/2020 ultrasound, 07/13/2020 mammogram, 01/16/2020 ultrasound, and 01/16/2020 mammogram - [facility]. There are scattered fibroglandular elements in both breasts. There is a stable biopsy clip in the right breast at 12 o'clock in the posterior depth. There is a stable 0.3 cm oval equal density mass with a circumscribed margin in the left breast at 12 o'clock anterior depth. No other significant masses, calcifications, or other findings are seen in either breast. Mammograms are otherwise stable. IMPRESSION: INCOMPLETE: NEEDS ADDITIONAL IMAGING EVALUATION The 0.3 cm mass in the left breast was seen on previous ultrasound to be a cyst. It is stable in size and morphology. An ultrasound is recommended to confirm stability. This was performed immediately following this exam. Mammograms are otherwise stable. Based on the Tyrer Cuzick model (a risk assessment model) the patient's lifetime risk is 10.8% and her 10 year risk is 6.1%. According to the ACR, ACS, and NCCN guidelines, an annual breast MRI exam along with mammogram is recommended if the patient's lifetime risk is 20% or greater. This exam was interpreted at Station ID: [id number]. NOTE: For mammograms, a report in lay terms will be sent to the patient. Approximately 15% of breast malignancies will not be visualized mammographically. In the management of a palpable breast mass, a negative mammogram must not discourage biopsy of a clinically suspicious lesion. Electronically Signed By: Gisella yoder/:12/31/2021 10:57:24 ACR BI-RADS Category 0: Incomplete [id number]
== END ==
PROVIDERS: PCP Internal Medicine; Referring Provider Internal Medicine; Visit Provider Internal Medicine
DX: R92.8 Other abnormal and inconclusive findings on diagnostic imaging of breast (principal); N60.02 Solitary cyst of left breast
CPT/HCPCS: 76642; 77066; G0279

== ENCOUNTER → 2023-01-10 11:15 | Outpatient (CLI) | payer MEDICARE, OTHER, SELFPAY ==
--- NOTE | 2023-01-10 | DI.MG.S_ITS ---
BILATERAL DIGITAL SCREENING MAMMOGRAM 3D/2D WITH CAD: 01/10/2023 CLINICAL: Routine screening. Family history of breast cancer. Comparison is made to exams dated: 12/31/2021 mammogram, 12/31/2020 mammogram, 07/13/2020 mammogram, 10/22/2018 mammogram, and 01/03/2020 mammogram - [facility]. There are scattered areas of fibroglandular density in both breasts (category b / 25%-50% glandular tissue). Current study was also evaluated with a Computer Aided Detection (CAD) system. There is a biopsy clip in the right breast. No significant masses, calcifications, or other findings are seen in either breast. There has been no significant interval change. IMPRESSION: NEGATIVE There is no mammographic evidence of malignancy. A 1 year screening mammogram is recommended. Based on the Tyrer Cuzick model (a risk assessment model) the patient's lifetime risk is 10.3% and her 10 year risk is 6.1%. According to the ACR, ACS, and NCCN guidelines, an annual breast MRI exam along with mammogram is recommended if the patient's lifetime risk is 20% or greater. This exam was interpreted at Station ID: [id number]. NOTE: For mammograms, a report in lay terms will be sent to the patient. Approximately 15% of breast malignancies will not be visualized mammographically. In the management of a palpable breast mass, a negative mammogram must not discourage biopsy of a clinically suspicious lesion. Electronically Signed By: Delfino de la cruz/ismael:01/10/2023 21:14:00 letter sent: Normal Exam ACR BI-RADS Category 1: Negative [id number]
== END ==
PROVIDERS: PCP Internal Medicine; Referring Provider Internal Medicine; Visit Provider Internal Medicine
DX: Z12.31 Encounter for screening mammogram for malignant neoplasm of breast (principal); Z80.3 Family history of malignant neoplasm of breast
CPT/HCPCS: 77063; 77067

== ENCOUNTER 2023-12-26 10:30 | Outpatient (RCR) | payer MEDICARE, OTHER, SELFPAY ==
--- NOTE | 2023-07-14 16:57 | PT.OIE ---
Current Diagnoses Stress incontinence (female) (male) (07/14/23) Past Medical History (This Medical Record has been edited. Action required.) Breast lump Hypothyroidism PVC (premature ventricular contraction) Past Surgical History (This Medical Record has been edited. Action required.) History of bowel resection Visit Care Team Role Provider Type Margaret Herron MD Primary Care Provider Physician Specialty: Family Practice [employer]OXING [employer]OM[employer]ER Address: [address] [place] [address], [phone] Fax: Email: [email or web address] Rachna Rollins MD Attending Provider Physician Family Provider Referring Provider Specialty: Internal Medicine Address: [place], [address] Email: Physical Therapy Initial Evaluation PT-OP-A Visit Information Start: 07/06/23 17:49 Freq: Status: Active Protocol: Document 07/14/23 13:44 LRN (Rec: 07/14/23 16:51 LRN [id number]) Out-Patient Physical Therapy Visit Information Visit Information Visit Type Initial Evaluation Visit Start Time 13:44 Visit Stop Time 14:32 Visit Number 1 Evaluation Information Evaluation Date 07/14/23 Precautions Precautions BPPV if bends over head down, Hyste followed by Bladder sling surgery in 2004, intestinal blockage surgery (8 -10 inches of upper small intenstine bowels removed) 2019, and facial surgery 2007, history of hemorrhoids, heart condition of PVCs. PT-OP-B Current Condition Start: 07/06/23 17:49 Freq: Status: Active Protocol: Document 07/14/23 13:44 LRN (Rec: 07/14/23 16:51 LRN [id number]) Current Condition History of Current Condition Onset Date 05/05/2020 Current Complaints PF weakness, hemorrhoid pain with BM, stress incontinence. History of Current Condition Pt states her main reason for PT is because of stress incontinence (started 40 yrs ago) and hemorrhoid pain since bowel surgery for bowel blockage 3 yrs ago. She reports an emergency surgery ( 05/05/2020) to remove 8-10 inches of upper small intenstine bowels. She has had a hyste in 2004 with complications due to scar tissue, then had a bladder sling put in later in 2004 (in [facility]) with resolution of urinary leakage. Now having a couple drops of urinary leakage with cough, sneeze and strong urge. Had 4 sessions with PF PT in [place] ([facility] in [place], [place]) to help build PF ms tone and worked on identifying core ms and hemorrhoid and sphincter muscles and and how to contract them. States she was just learning when she had to leave and was given a few exercises. 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 Prior Treatments and Tests PF physical therapy in [facility]. Developmental History Developmental History 60 yrs of playing violin causing neck pain and has a family history of cervical spinal stenosis. Treatment Goals Patient/Caregiver Goals Pt goals: Deep Breath properly, functional exercise to lose wgt and learn how to exercise safely, eliminate urinary incontinence, and reduce pain with BM's. Personal Factors Other Personal Factors That May Effect Pt reported: Therapy/Recovery Heart condition of PVCs, was told by mop maker to work up to exercise, Bowel surgery for bowel blockage 3 yrs ago, Hyste followed by Bladder sling surgery in 2004, History of hemorrhoids. PT-OP-C Subjective Start: 07/06/23 17:49 Freq: Status: Active Protocol: Document 07/14/23 13:44 LRN (Rec: 07/14/23 16:51 LRN [id number]) OP-PT Subjective Patient Comments Patient Comments Previous PT was taught to isolate PF with contractions. Pt is 3G3P, vaginal births. Patient Questionnaires Pelvic Pain and Urgency/Frequency Patient Symptom Scale Pelvic Pain Score 1 PT-OP-I Pelvic Floor Start: 07/06/23 17:49 Freq: Status: Active Protocol: Document 07/14/23 13:44 LRN (Rec: 07/14/23 16:51 LRN [id number]) Pelvic Floor Assessment Urine Pelvic Floor Surgery No Leakage Size Small Leakage Cause Cough,Sneeze,Urge Other Leakage Causes Elliptical, jogs in place and jumping jacks, Sr ex's with weights and walks. NO leakage if urinates before ex and jogs gentle. Bowel Bowel Surgery Yes Bowel Symptoms Constipation,Pain Other Bowel Symptoms Hemorrhoids. Bowel Movement Frequency Daily [place] Stool Chart Type 1-7 4 Pelvic Clock Pelvic Clock Other Tender at 5 O'Clock Prolapse Urethrocele Grade 2 Prolapse Comments Bulge at anus with cough. Perineal Descent Resting Present Bearing Absent Contraction Ability Voluntary Contraction Weak Voluntary Relaxation Moderate Manual Muscle Testing Left 2 Manual Muscle Testing Right 2 Manual Muscle Testing Anterior 1 Manual Muscle Testing Posterior 3 Muscle Endurance (Seconds) 10 Number of Quick Contractions In 10 4 Seconds Comments Pelvic Floor Comments Dry tissues externally. Lacks clitoral nod, has anal wink. PT-OP-J Posture/Palpation/Skin Start: 07/06/23 17:49 Freq: Status: Active Protocol: Document 07/14/23 13:44 LRN (Rec: 07/14/23 16:51 LRN [id number]) Posture Evaluation Position Standing Head/C-Spine Posture Forward Head L-Spine Posture Increased Lordosis Pelvis Posture Anteriorly Tilted Knee Posture (L) Genu Valgus,(R) Genu Valgus Comments Posture Comments Dowagers hump. R UT tightness . PT-OP-K Range of Motion Start: 07/06/23 17:49 Freq: Status: Active Protocol: Document 07/14/23 13:44 LRN (Rec: 07/14/23 16:51 LRN [id number]) Lumbar Spine Range of Motion Lumbar Spine Active Degrees Testing Position Standing Flexion 95 Extension 20 Rotation Left 45 Rotation Right 30 Lateral Flexion Left 27 Lateral Flexion Right 20 Comments 95/55 20/20 Hip Goniometric Range of Motion Hip Right Passive Testing Position Supine Internal Rotation 20 External Rotation 60 Left Passive Testing Position Supine Internal Rotation 10 External Rotation 90 Comments Resting position, hip starts at 30 deg's ER. PT-OP-M Strength Start: 07/06/23 17:49 Freq: Status: Active Protocol: Document 07/14/23 13:44 LRN (Rec: 07/14/23 16:51 LRN [id number]) Trunk Strength Trunk Manual Muscle Testing Core Stabilization Fair core stability during MMT of LE's. Most notable decrease in rotational stability. Hip Strength Hip Manual Muscle Testing Right Extension (S1) 3 Fair Adduction 4 Good Comments Strength is 5/5 except as indicated above. Left Extension (S1) 3+ Fair+ Adduction 3+ Fair+ Comments Strength is 5/5 except as indicated above. PT-OP-Q Treatments Start: 07/06/23 17:49 Freq: Status: Active Protocol: Document 07/14/23 13:44 LRN (Rec: 07/14/23 16:51 LRN [id number]) Self-Care/Home Management Treatment Education Patient Education Home Exercise Program Other Education Discussed results of evaluation, goals, and plan of care (POC). Pt agreeable to goals and POC. Discussed and educated pt in specifics for completion of in use of Bladder Diary and I/S in tracking for 1 week. Discussed use of 2 different diaries for tracking of bladder for next 7 days. Activities Self-Care/Home Management Activities Discussed, Issued & reviewed HEP: Kegel ex's of Quick Flicks, Long Holds and Aggravators. PT-OP-T Assessment and Plan Start: 07/06/23 17:49 Freq: Status: Active Protocol: Document 07/14/23 13:44 LRN (Rec: 07/14/23 16:51 LRN [id number]) Physical Therapy Assessment Rehab Potential Rehabilitation Potential Good Evaluation Complexity Number of Personal Factors/Comorbidities 3 or More Number of Body Systems Impaired 4 or More Clinical Presentation at Evaluation Evolving Impairments Impairments Activity Tolerance,Pain, Posture,ROM,Strength,Transfers Other Impairments Coordination of movement of diaphragm and PF ms on contraction. Goals Five Impairment PF abdominal pain prior to need for BM and anal pain (3/ 10) with BM. Short Term Goal (STG) Pt educated in proper deep breathing for PF relaxation and Bowel massage/bowel care. STG Duration 1 wk-07/21/23 Road Mixer Operator Goal (LTG) Pt will have reduction or eliimination of anal and lower abdominal painn with BM's. LTG Duration 12 wks-10/06/23 Four Impairment Urinary incontinence with a strong cough, sneeze. Short Term Goal (STG) Improve PF strength per Long Hold 10 sec's prior to fatigue and Quick Flicks 7-8 reps in 10 secs. STG Duration 6 wks-08/25/23 Road Mixer Operator Goal (LTG) Pt will have decreased complaints of urinary stress incontinent symptoms and will be able to maintain continence in the presence of a strong cough, sneeze and with laughing. LTG Duration 12 wks-10/06/23 Three Impairment Decreased hip mobility limiting PF and core strength Impairment Decreased hip mobility: IR 10 L, 20 R; ER 90 L, 60 R). Short Term Goal (STG) Pt will be independent with a HEP of hip stretches (mainly sujit IR's and R ER), and hip ext, AD strengthening exercises. STG Duration 6 wks-08/25/23 [facility]ci Goal (LTG) Pt will demonstrate improved sujit hip IR and R hip ER PROM, and improve hip ext and AD strength by 1/2 grade or more. LTG Duration 12 wks-10/06/23 Two Impairment Poor core stability limiting exercise tolerance. Short Term Goal (STG) Pt will be educated in how to exercise safely by tracking HR and performing a TA while normal breathing. STG Duration 3 wks-08/04/23 [facility]ci Goal (LTG) Improve core stability with pt able to maintain a TA contraction with exercise to be able to functionally exercise (to help with wgt loss). LTG Duration 12 wks-10/06/23 One Impairment Pt lacks an independent self care HEP. Short Term Goal (STG) Pt educated in proper transfers to lessen core abdominal pressure. STG Duration 2 wks-07/28/23 Road Mixer Operator Goal (LTG) Pt will be independent in a self care HEP for PF strengthening and be able to coordinate pulling up/in with PF (anter/cook helper meat) and abdomen with a PF contraction. LTG Duration 12 wks-10/06/23 Assessment Summary Assessment Pt is a 68 yo female who presents with complaints of anal/abdominal pain with and prior to BM's, respectively. She appears to have stress urinary incontinence due to PF weakness, use of substitute muscles (abdominals) to get PF contraction, poor core pressure management, transfers with increased core pressure, poor coordination of PF contraction resulting in bulging of the PF (anterior & posterior) and abdomen instead of drawing up and in, as expected she does during exercise. She has pain at PF 5 O'Clock. Bulging at her abdomen may indicate an abdominal hernia. She has weakness of her hip AD's & extensors adding to her PF weakness. With exercise she has noted she needs to learn how to deep breath properly and coordinate breath with exercise. Education in self assessment of her HR during cardiac exercise and education in safe exercise to improve her cardiac health and return to general exercise for weight management would be important for the patient's general good health. The pt will benefit from skilled physical therapy to work towards achieving the above stated goals. Physical Therapy Plan Frequency and Duration Frequency of Treatment 1x/Week Duration of treatment (weeks) 12 Plan of Care Start Date 07/14/23 Plan of Care End Date 10/06/23 Therapeutic Interventions Therapeutic Interventions Home Exercise Program,Joint Mobilizations,Manual Therapy, Neuromuscular Re-education, Self-Care/Home Management,Soft Tissue Mobilization, Therapeutic Activities, Therapeutic Exercises Modalities Biofeedback,Electric Stimulation Next Visit Focus/Plan Next Note Type Treatment Note Next Visit Plan Next: PROM for KTC & hip AD, Resting HR and exercise parameters with pt education in self HR assessment. Review bladder diary, then PF assessment with Vemg if pt agreeable. Pt education in bladder retraining with urge deference technique, Neuro-scott: proper Kegel without use of substitute muscles, reduction of intra- abdominal pressure, proper deep breathing, and proper breathing with transfers and body mechanics (functional activities), BM training. Proper drawing up of PF with contraction (not bulging at abdomen, PF, anus). Strengthening: Core (TA, prevent doming), hip AD & extensors. ROM: sujit IR, R ER, extenson ( ? hip AD), LB flex stretch. Manual: BM massage, Ilipsoas release, hip mobs, abdomen ( check urachus), bladder, intestines POC: Constipation mgmt, anal/ lower abdominal pain reduction rehab and stress urinary incontinence rehab.
--- NOTE | 2023-07-14 17:06 | PT.OIE ---
Current Diagnoses Stiffness of unspecified hip, not elsewhere classified (07/14/23) Muscle weakness (generalized) (07/14/23) Stress incontinence (female) (male) (07/14/23) Pelvic and perineal pain (07/14/23) Past Medical History (This Medical Record has been edited. Action required.) Breast lump Hypothyroidism PVC (premature ventricular contraction) Past Surgical History (This Medical Record has been edited. Action required.) History of bowel resection Visit Care Team Role Provider Type Margaret Herron MD Primary Care Provider Physician Specialty: Family Practice [employer]SEM[employer] Address: [address] [place] [address], [id number] Fax: Email: [email or web address] Rachna Rollins MD Attending Provider Physician Family Provider Referring Provider Specialty: Internal Medicine Address: [place], [address] Email: Physical Therapy Initial Evaluation PT-OP-A Visit Information Start: 07/06/23 17:49 Freq: Status: Active Protocol: Document 07/14/23 13:44 LRN (Rec: 07/14/23 16:51 LRN [id number]) Out-Patient Physical Therapy Visit Information Visit Information Visit Type Initial Evaluation Visit Start Time 13:44 Visit Stop Time 14:32 Visit Number 1 Evaluation Information Evaluation Date 07/14/23 Precautions Precautions BPPV if bends over head down, Hyste followed by Bladder sling surgery in 2004, intestinal blockage surgery (8 -10 inches of upper small intenstine bowels removed) 2019, and facial surgery 2007, history of hemorrhoids, heart condition of PVCs. PT-OP-B Current Condition Start: 07/06/23 17:49 Freq: Status: Active Protocol: Document 07/14/23 13:44 LRN (Rec: 07/14/23 16:51 LRN [id number]) Current Condition History of Current Condition Onset Date 05/05/2020 Current Complaints PF weakness, hemorrhoid pain with BM, stress incontinence. History of Current Condition Pt states her main reason for PT is because of stress incontinence (started 40 yrs ago) and hemorrhoid pain since bowel surgery for bowel blockage 3 yrs ago. She reports an emergency surgery ( 05/05/2020) to remove 8-10 inches of upper small intenstine bowels. She has had a hyste in 2004 with complications due to scar tissue, then had a bladder sling put in later in 2004 (in [facility]) with resolution of urinary leakage. Now having a couple drops of urinary leakage with cough, sneeze and strong urge. Had 4 sessions with PF PT in [place] ([facility] in [place], [place]) to help build PF ms tone and worked on identifying core ms and hemorrhoid and sphincter muscles and and how to contract them. States she was just learning when she had to leave and was given a few exercises. 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 Prior Treatments and Tests PF physical therapy in [facility]. Developmental History Developmental History 58 yrs of playing violin causing neck pain and has a family history of cervical spinal stenosis. Treatment Goals Patient/Caregiver Goals Pt goals: Deep Breath properly, functional exercise to lose wgt and learn how to exercise safely, eliminate urinary incontinence, and reduce pain with BM's. Personal Factors Other Personal Factors That May Effect Pt reported: Therapy/Recovery Heart condition of PVCs, was told by subcontract administrator to work up to exercise, Bowel surgery for bowel blockage 3 yrs ago, Hyste followed by Bladder sling surgery in 2004, History of hemorrhoids. PT-OP-C Subjective Start: 07/06/23 17:49 Freq: Status: Active Protocol: Document 07/14/23 13:44 LRN (Rec: 07/14/23 16:51 LRN [id number]) OP-PT Subjective Patient Comments Patient Comments Previous PT was taught to isolate PF with contractions. Pt is 3G3P, vaginal births. Patient Questionnaires Pelvic Pain and Urgency/Frequency Patient Symptom Scale Pelvic Pain Score 1 PT-OP-I Pelvic Floor Start: 07/06/23 17:49 Freq: Status: Active Protocol: Document 07/14/23 13:44 LRN (Rec: 07/14/23 16:51 LRN [id number]) Pelvic Floor Assessment Urine Pelvic Floor Surgery No Leakage Size Small Leakage Cause Cough,Sneeze,Urge Other Leakage Causes Elliptical, jogs in place and jumping jacks, Sr ex's with weights and walks. NO leakage if urinates before ex and jogs gentle. Bowel Bowel Surgery Yes Bowel Symptoms Constipation,Pain Other Bowel Symptoms Hemorrhoids. Bowel Movement Frequency Daily [place] Stool Chart Type 1-7 4 Pelvic Clock Pelvic Clock Other Tender at 5 O'Clock Prolapse Urethrocele Grade 2 Prolapse Comments Bulge at anus with cough. Perineal Descent Resting Present Bearing Absent Contraction Ability Voluntary Contraction Weak Voluntary Relaxation Moderate Manual Muscle Testing Left 2 Manual Muscle Testing Right 2 Manual Muscle Testing Anterior 1 Manual Muscle Testing Posterior 3 Muscle Endurance (Seconds) 10 Number of Quick Contractions In 10 4 Seconds Comments Pelvic Floor Comments Dry tissues externally. Lacks clitoral nod, has anal wink. PT-OP-J Posture/Palpation/Skin Start: 07/06/23 17:49 Freq: Status: Active Protocol: Document 07/14/23 13:44 LRN (Rec: 07/14/23 16:51 LRN [id number]) Posture Evaluation Position Standing Head/C-Spine Posture Forward Head L-Spine Posture Increased Lordosis Pelvis Posture Anteriorly Tilted Knee Posture (L) Genu Valgus,(R) Genu Valgus Comments Posture Comments Dowagers hump. R UT tightness . PT-OP-K Range of Motion Start: 07/06/23 17:49 Freq: Status: Active Protocol: Document 07/14/23 13:44 LRN (Rec: 07/14/23 16:51 LRN [id number]) Lumbar Spine Range of Motion Lumbar Spine Active Degrees Testing Position Standing Flexion 95 Extension 20 Rotation Left 45 Rotation Right 30 Lateral Flexion Left 27 Lateral Flexion Right 20 Comments 95/55 20/20 Hip Goniometric Range of Motion Hip Right Passive Testing Position Supine Internal Rotation 20 External Rotation 60 Left Passive Testing Position Supine Internal Rotation 10 External Rotation 90 Comments Resting position, hip starts at 30 deg's ER. PT-OP-M Strength Start: 07/06/23 17:49 Freq: Status: Active Protocol: Document 07/14/23 13:44 LRN (Rec: 07/14/23 16:51 LRN [id number]) Trunk Strength Trunk Manual Muscle Testing Core Stabilization Fair core stability during MMT of LE's. Most notable decrease in rotational stability. Hip Strength Hip Manual Muscle Testing Right Extension (S1) 3 Fair Adduction 4 Good Comments Strength is 5/5 except as indicated above. Left Extension (S1) 3+ Fair+ Adduction 3+ Fair+ Comments Strength is 5/5 except as indicated above. PT-OP-Q Treatments Start: 07/06/23 17:49 Freq: Status: Active Protocol: Document 07/14/23 13:44 LRN (Rec: 07/14/23 16:51 LRN [id number]) Self-Care/Home Management Treatment Education Patient Education Home Exercise Program Other Education Discussed results of evaluation, goals, and plan of care (POC). Pt agreeable to goals and POC. Discussed and educated pt in specifics for completion of in use of Bladder Diary and I/S in tracking for 1 week. Discussed use of 2 different diaries for tracking of bladder for next 7 days. Activities Self-Care/Home Management Activities Discussed, Issued & reviewed HEP: Kegel ex's of Quick Flicks, Long Holds and Aggravators. PT-OP-T Assessment and Plan Start: 07/06/23 17:49 Freq: Status: Active Protocol: Document 07/14/23 13:44 LRN (Rec: 07/14/23 16:51 LRN [id number]) Physical Therapy Assessment Rehab Potential Rehabilitation Potential Good Evaluation Complexity Number of Personal Factors/Comorbidities 3 or More Number of Body Systems Impaired 4 or More Clinical Presentation at Evaluation Evolving Impairments Impairments Activity Tolerance,Pain, Posture,ROM,Strength,Transfers Other Impairments Coordination of movement of diaphragm and PF ms on contraction. Goals Five Impairment PF abdominal pain prior to need for BM and anal pain (3/ 10) with BM. Short Term Goal (STG) Pt educated in proper deep breathing for PF relaxation and Bowel massage/bowel care. STG Duration 1 wk-07/21/23 Binding Machine Operator Goal (LTG) Pt will have reduction or eliimination of anal and lower abdominal painn with BM's. LTG Duration 12 wks-10/06/23 Four Impairment Urinary incontinence with a strong cough, sneeze. Short Term Goal (STG) Improve PF strength per Long Hold 10 sec's prior to fatigue and Quick Flicks 7-8 reps in 10 secs. STG Duration 6 wks-08/25/23 Snf Goal (LTG) Pt will have decreased complaints of urinary stress incontinent symptoms and will be able to maintain continence in the presence of a strong cough, sneeze and with laughing. LTG Duration 12 wks-10/06/23 Three Impairment Decreased hip mobility limiting PF and core strength Impairment Decreased hip mobility: IR 10 L, 20 R; ER 90 L, 60 R). Short Term Goal (STG) Pt will be independent with a HEP of hip stretches (mainly sujit IR's and R ER), and hip ext, AD strengthening exercises. STG Duration 6 wks-08/25/23 Binding Machine Operator Goal (LTG) Pt will demonstrate improved sujit hip IR and R hip ER PROM, and improve hip ext and AD strength by 1/2 grade or more. LTG Duration 12 wks-10/06/23 Two Impairment Poor core stability limiting exercise tolerance. Short Term Goal (STG) Pt will be educated in how to exercise safely by tracking HR and performing a TA while normal breathing. STG Duration 3 wks-08/04/23 Binding Machine Operator Goal (LTG) Improve core stability with pt able to maintain a TA contraction with exercise to be able to functionally exercise (to help with wgt loss). LTG Duration 12 wks-10/06/23 One Impairment Pt lacks an independent self care HEP. Short Term Goal (STG) Pt educated in proper transfers to lessen core abdominal pressure. STG Duration 2 wks-07/28/23 Binding Machine Operator Goal (LTG) Pt will be independent in a self care HEP for PF strengthening and be able to coordinate pulling up/in with PF (anter/soft sugar supervisor) and abdomen with a PF contraction. LTG Duration 12 wks-10/06/23 Assessment Summary Assessment Pt is a 68 yo female who presents with complaints of anal/abdominal pain with and prior to BM's, respectively. She appears to have stress urinary incontinence due to PF weakness, use of substitute muscles (abdominals) to get PF contraction, poor core pressure management, transfers with increased core pressure, poor coordination of PF contraction resulting in bulging of the PF (anterior & posterior) and abdomen instead of drawing up and in, as expected she does during exercise. She has pain at PF 5 O'Clock. Bulging at her abdomen may indicate an abdominal hernia. She has weakness of her hip AD's & extensors adding to her PF weakness. With exercise she has noted she needs to learn how to deep breath properly and coordinate breath with exercise. Education in self assessment of her HR during cardiac exercise and education in safe exercise to improve her cardiac health and return to general exercise for weight management would be important for the patient's general good health. The pt will benefit from skilled physical therapy to work towards achieving the above stated goals. Physical Therapy Plan Frequency and Duration Frequency of Treatment 1x/Week Duration of treatment (weeks) 12 Plan of Care Start Date 07/14/23 Plan of Care End Date 10/06/23 Therapeutic Interventions Therapeutic Interventions Home Exercise Program,Joint Mobilizations,Manual Therapy, Neuromuscular Re-education, Self-Care/Home Management,Soft Tissue Mobilization, Therapeutic Activities, Therapeutic Exercises Modalities Biofeedback,Electric Stimulation Next Visit Focus/Plan Next Note Type Treatment Note Next Visit Plan Next: PROM for KTC & hip AD, Resting HR and exercise parameters with pt education in self HR assessment. Review bladder diary, then PF assessment with Vemg if pt agreeable. Pt education in bladder retraining with urge deference technique, Neuro-scott: proper Kegel without use of substitute muscles, reduction of intra- abdominal pressure, proper deep breathing, and proper breathing with transfers and body mechanics (functional activities), BM training. Proper drawing up of PF with contraction (not bulging at abdomen, PF, anus). Strengthening: Core (TA, prevent doming), hip AD & extensors. ROM: sujit IR, R ER, extenson ( ? hip AD), LB flex stretch. Manual: BM massage, Ilipsoas release, hip mobs, abdomen ( check urachus), bladder, intestines POC: Constipation mgmt, anal/ lower abdominal pain reduction rehab and stress urinary incontinence rehab.
--- NOTE | 2023-07-17 15:58 | PT.OTN ---
Current Diagnoses Stiffness of unspecified hip, not elsewhere classified (07/17/23) Muscle weakness (generalized) (07/17/23) Stress incontinence (female) (male) (07/17/23) Pelvic and perineal pain (07/17/23) Physical Therapy Treatment Note PT-OP-A Visit Information Start: 07/06/23 17:49 Freq: Status: Active Protocol: Document 07/17/23 13:48 LRN (Rec: 07/17/23 14:30 LRN [id number]) Out-Patient Physical Therapy Visit Information Visit Information Visit Type Treatment Note Visit Start Time 13:48 Visit Stop Time 14:29 Visit Number 2 Evaluation Information Evaluation Date 07/14/23 Precautions Precautions BPPV if bends over head down, Hyste followed by Bladder sling surgery in 2004, intestinal blockage surgery (8 -10 inches of upper small intenstine bowels removed) 2019, and facial surgery 2007, history of hemorrhoids, heart condition of PVCs. PT-OP-B Current Condition Start: 07/06/23 17:49 Freq: Status: Active Protocol: Document 07/14/23 13:44 LRN (Rec: 07/14/23 16:51 LRN [id number]) Current Condition History of Current Condition Onset Date 05/05/2020 Current Complaints PF weakness, hemorrhoid pain with BM, stress incontinence. History of Current Condition Pt states her main reason for PT is because of stress incontinence (started 40 yrs ago) and hemorrhoid pain since bowel surgery for bowel blockage 3 yrs ago. She reports an emergency surgery ( 05/05/2020) to remove 8-10 inches of upper small intenstine bowels. She has had a hyste in 2004 with complications due to scar tissue, then had a bladder sling put in later in 2004 (in [facility]) with resolution of urinary leakage. Now having a couple drops of urinary leakage with cough, sneeze and strong urge. Had 4 sessions with PF PT in [place] ([facility] in [place], [place]) to help build PF ms tone and worked on identifying core ms and hemorrhoid and sphincter muscles and and how to contract them. States she was just learning when she had to leave and was given a few exercises. 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 Prior Treatments and Tests PF physical therapy in [facility]. Developmental History Developmental History 58 yrs of playing violin causing neck pain and has a family history of cervical spinal stenosis. Treatment Goals Patient/Caregiver Goals Pt goals: Deep Breath properly, functional exercise to lose wgt and learn how to exercise safely, eliminate urinary incontinence, and reduce pain with BM's. Personal Factors Other Personal Factors That May Effect Pt reported: Therapy/Recovery Heart condition of PVCs, was told by calender wind up helper to work up to exercise, Bowel surgery for bowel blockage 3 yrs ago, Hyste followed by Bladder sling surgery in 2004, History of hemorrhoids. PT-OP-C Subjective Start: 07/06/23 17:49 Freq: Status: Active Protocol: Document 07/17/23 13:48 LRN (Rec: 07/17/23 14:30 LRN [id number]) OP-PT Subjective Patient Comments Patient Comments Pt reports doing bladder diary . Has info on previous HEP. PT-OP-I Pelvic Floor Start: 07/06/23 17:49 Freq: Status: Active Protocol: Document 07/14/23 13:44 LRN (Rec: 07/14/23 16:51 LRN [id number]) Pelvic Floor Assessment Urine Pelvic Floor Surgery No Leakage Size Small Leakage Cause Cough,Sneeze,Urge Other Leakage Causes Elliptical, jogs in place and jumping jacks, Sr ex's with weights and walks. NO leakage if urinates before ex and jogs gentle. Bowel Bowel Surgery Yes Bowel Symptoms Constipation,Pain Other Bowel Symptoms Hemorrhoids. Bowel Movement Frequency Daily [place] Stool Chart Type 1-7 4 Pelvic Clock Pelvic Clock Other Tender at 5 O'Clock Prolapse Urethrocele Grade 2 Prolapse Comments Bulge at anus with cough. Perineal Descent Resting Present Bearing Absent Contraction Ability Voluntary Contraction Weak Voluntary Relaxation Moderate Manual Muscle Testing Left 2 Manual Muscle Testing Right 2 Manual Muscle Testing Anterior 1 Manual Muscle Testing Posterior 3 Muscle Endurance (Seconds) 10 Number of Quick Contractions In 10 4 Seconds Comments Pelvic Floor Comments Dry tissues externally. Lacks clitoral nod, has anal wink. PT-OP-J Posture/Palpation/Skin Start: 07/06/23 17:49 Freq: Status: Active Protocol: Document 07/14/23 13:44 LRN (Rec: 07/14/23 16:51 LRN [id number]) Posture Evaluation Position Standing Head/C-Spine Posture Forward Head L-Spine Posture Increased Lordosis Pelvis Posture Anteriorly Tilted Knee Posture (L) Genu Valgus,(R) Genu Valgus Comments Posture Comments Dowagers hump. R UT tightness . PT-OP-K Range of Motion Start: 07/06/23 17:49 Freq: Status: Active Protocol: Document 07/14/23 13:44 LRN (Rec: 07/14/23 16:51 LRN [id number]) Lumbar Spine Range of Motion Lumbar Spine Active Degrees Testing Position Standing Flexion 95 Extension 20 Rotation Left 45 Rotation Right 30 Lateral Flexion Left 27 Lateral Flexion Right 20 Comments 95/55 20/20 Hip Goniometric Range of Motion Hip Right Passive Testing Position Supine Internal Rotation 20 External Rotation 60 Left Passive Testing Position Supine Internal Rotation 10 External Rotation 90 Comments Resting position, hip starts at 30 deg's ER. PT-OP-M Strength Start: 07/06/23 17:49 Freq: Status: Active Protocol: Document 07/14/23 13:44 LRN (Rec: 07/14/23 16:51 LRN [id number]) Trunk Strength Trunk Manual Muscle Testing Core Stabilization Fair core stability during MMT of LE's. Most notable decrease in rotational stability. Hip Strength Hip Manual Muscle Testing Right Extension (S1) 3 Fair Adduction 4 Good Comments Strength is 5/5 except as indicated above. Left Extension (S1) 3+ Fair+ Adduction 3+ Fair+ Comments Strength is 5/5 except as indicated above. PT-OP-Q Treatments Start: 07/06/23 17:49 Freq: Status: Active Protocol: Document 07/17/23 13:48 LRN (Rec: 07/17/23 14:30 LRN [id number]) Therapeutic Exercises Supine Exercises KTC stretch Supine Exercise Name KTC Side bilateral Reps/Minutes 3 breath hold x 2 TA tightening Supine Exercise Name TA tightening Reps/Minutes 6' Deep Breathing Supine Exercise Name Deep Breathing Reps/Minutes 3' Manual Therapy Treatment Soft Tissue Mobilization Bowel Massage Body Location Bowel Massage x 5 Mobilization Type Other Intensity/Depth Moderate Body Position Hooklying Comments Massage to pt, f/b pt doing self massage x 4 reps. Neuro Re-Education Treatment Coordination Activities Isolated Kegel Details Isolated Kegel Reps/Duration 10' Self-Care/Home Management Treatment Education Other Education Reviewed bladder diary and discussed her current condition and since she has no constipation and is drinking plenty of fluids which includes caffenated fluids, no changes to her drinking or review of food intake is needed. PT-OP-T Assessment and Plan Start: 07/06/23 17:49 Freq: Status: Active Protocol: Document 07/17/23 13:48 LRN (Rec: 07/17/23 14:30 LRN [id number]) Physical Therapy Assessment Goals Five Impairment PF abdominal pain prior to need for BM and anal pain (3/ 10) with BM. Short Term Goal (STG) Pt educated in proper deep breathing for PF relaxation and Bowel massage/bowel care. STG Duration 1 wk-07/21/23 Power Nut Runner Operator Goal (LTG) Pt will have reduction or eliimination of anal and lower abdominal painn with BM's. LTG Duration 12 wks-10/06/23 Four Impairment Urinary incontinence with a strong cough, sneeze. Short Term Goal (STG) Improve PF strength per Long Hold 10 sec's prior to fatigue and Quick Flicks 7-8 reps in 10 secs. STG Duration 6 wks-08/25/23 Nursing Home Goal (LTG) Pt will have decreased complaints of urinary stress incontinent symptoms and will be able to maintain continence in the presence of a strong cough, sneeze and with laughing. LTG Duration 12 wks-10/06/23 Three Impairment Decreased hip mobility limiting PF and core strength Impairment Decreased hip mobility: IR 10 L, 20 R; ER 90 L, 60 R). Short Term Goal (STG) Pt will be independent with a HEP of hip stretches (mainly sujit IR's and R ER), and hip ext, AD strengthening exercises. STG Duration 6 wks-08/25/23 Nursing Home Goal (LTG) Pt will demonstrate improved sujit hip IR and R hip ER PROM, and improve hip ext and AD strength by 1/2 grade or more. LTG Duration 12 wks-10/06/23 Two Impairment Poor core stability limiting exercise tolerance. Short Term Goal (STG) Pt will be educated in how to exercise safely by tracking HR and performing a TA while normal breathing. STG Duration 3 wks-08/04/23 Nursing Home Goal (LTG) Improve core stability with pt able to maintain a TA contraction with exercise to be able to functionally exercise (to help with wgt loss). LTG Duration 12 wks-10/06/23 One Impairment Pt lacks an independent self care HEP. Short Term Goal (STG) Pt educated in proper transfers to lessen core abdominal pressure. STG Duration 2 wks-07/28/23 Nursing Home Goal (LTG) Pt will be independent in a self care HEP for PF strengthening and be able to coordinate pulling up/in with PF (anter/coil finisher) and abdomen with a PF contraction. LTG Duration 12 wks-10/06/23 Assessment Summary Assessment Pt is a 68 yo female with complaints of anal/abdominal pain with/prior to BM's, respectively. She was found to have, per bladder diary review, normative values for fluid intake except sometimes the fluids include 2-3C of caffeinated drinks. She has normal daily BM's, type 4. Over the weekend has not had lower abdominal pain. Physical Therapy Plan Frequency and Duration Frequency of Treatment 1x/Week Duration of treatment (weeks) 12 Plan of Care Start Date 07/14/23 Plan of Care End Date 10/06/23 Next Visit Focus/Plan Next Note Type Treatment Note Next Visit Plan Next: Assess response to BM massage. PF assessment with Vemg if pt agreeable. Try Manual therapy to abdomen, with reports of pt having kinked colon. PROM for KTC & hip AD, Resting HR and exercise parameters with pt education in self HR assessment. Pt education in bladder retraining with urge deference technique, Neuro-scott: proper Kegel without use of substitute muscles, reduction of intra- abdominal pressure, proper deep breathing, and proper breathing with transfers and body mechanics (functional activities), BM training. Proper drawing up of PF with contraction (not bulging at abdomen, PF, anus). Strengthening: Core (TA, prevent doming), hip AD & extensors. ROM: sujit IR, R ER, extenson ( ? hip AD), LB flex stretch. Manual: BM massage, Ilipsoas release, hip mobs, abdomen ( check urachus), bladder, intestines POC: Constipation mgmt, anal/ lower abdominal pain reduction rehab and stress urinary incontinence rehab.
--- NOTE | 2023-08-04 15:03 | PT.OTN ---
Current Diagnoses Stiffness of unspecified hip, not elsewhere classified (08/04/23) Muscle weakness (generalized) (08/04/23) Stress incontinence (female) (male) (08/04/23) Pelvic and perineal pain (08/04/23) Physical Therapy Treatment Note PT-OP-A Visit Information Start: 07/06/23 17:49 Freq: Status: Active Protocol: Document 08/04/23 13:49 LRN (Rec: 08/04/23 14:35 LRN [id number]) Out-Patient Physical Therapy Visit Information Visit Information Visit Type Treatment Note Visit Start Time 13:49 Visit Stop Time 14:35 Visit Number 3 Evaluation Information Evaluation Date 07/14/23 Precautions Precautions BPPV if bends over head down, Hyste followed by Bladder sling surgery in 2004, intestinal blockage surgery (8 -10 inches of upper small intenstine bowels removed) 2019, and facial surgery 2007, history of hemorrhoids, heart condition of PVCs. PT-OP-B Current Condition Start: 07/06/23 17:49 Freq: Status: Active Protocol: Document 07/14/23 13:44 LRN (Rec: 07/14/23 16:51 LRN [id number]) Current Condition History of Current Condition Onset Date 05/05/2020 Current Complaints PF weakness, hemorrhoid pain with BM, stress incontinence. History of Current Condition Pt states her main reason for PT is because of stress incontinence (started 40 yrs ago) and hemorrhoid pain since bowel surgery for bowel blockage 3 yrs ago. She reports an emergency surgery ( 05/05/2020) to remove 8-10 inches of upper small intenstine bowels. She has had a hyste in 2004 with complications due to scar tissue, then had a bladder sling put in later in 2004 (in [facility]) with resolution of urinary leakage. Now having a couple drops of urinary leakage with cough, sneeze and strong urge. Had 4 sessions with PF PT in [place] ([facility] in [place], [place]) to help build PF ms tone and worked on identifying core ms and hemorrhoid and sphincter muscles and and how to contract them. States she was just learning when she had to leave and was given a few exercises. 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 Prior Treatments and Tests PF physical therapy in [facility]. Developmental History Developmental History 58 yrs of playing violin causing neck pain and has a family history of cervical spinal stenosis. Treatment Goals Patient/Caregiver Goals Pt goals: Deep Breath properly, functional exercise to lose wgt and learn how to exercise safely, eliminate urinary incontinence, and reduce pain with BM's. Personal Factors Other Personal Factors That May Effect Pt reported: Therapy/Recovery Heart condition of PVCs, was told by keyboarding teacher to work up to exercise, Bowel surgery for bowel blockage 3 yrs ago, Hyste followed by Bladder sling surgery in 2004, History of hemorrhoids. PT-OP-C Subjective Start: 07/06/23 17:49 Freq: Status: Active Protocol: Document 08/04/23 13:49 LRN (Rec: 08/04/23 14:35 LRN [id number]) OP-PT Subjective Patient Comments Patient Comments Painful to have BM with intial push, then hemorhoids bleed. When taking probiotics doesn' t have the pain. Uses suppositories. PT-OP-I Pelvic Floor Start: 07/06/23 17:49 Freq: Status: Active Protocol: Document 07/14/23 13:44 LRN (Rec: 07/14/23 16:51 LRN [id number]) Pelvic Floor Assessment Urine Pelvic Floor Surgery No Leakage Size Small Leakage Cause Cough,Sneeze,Urge Other Leakage Causes Elliptical, jogs in place and jumping jacks, Sr ex's with weights and walks. NO leakage if urinates before ex and jogs gentle. Bowel Bowel Surgery Yes Bowel Symptoms Constipation,Pain Other Bowel Symptoms Hemorrhoids. Bowel Movement Frequency Daily [place] Stool Chart Type 1-7 4 Pelvic Clock Pelvic Clock Other Tender at 5 O'Clock Prolapse Urethrocele Grade 2 Prolapse Comments Bulge at anus with cough. Perineal Descent Resting Present Bearing Absent Contraction Ability Voluntary Contraction Weak Voluntary Relaxation Moderate Manual Muscle Testing Left 2 Manual Muscle Testing Right 2 Manual Muscle Testing Anterior 1 Manual Muscle Testing Posterior 3 Muscle Endurance (Seconds) 10 Number of Quick Contractions In 10 4 Seconds Comments Pelvic Floor Comments Dry tissues externally. Lacks clitoral nod, has anal wink. PT-OP-J Posture/Palpation/Skin Start: 07/06/23 17:49 Freq: Status: Active Protocol: Document 07/14/23 13:44 LRN (Rec: 07/14/23 16:51 LRN [id number]) Posture Evaluation Position Standing Head/C-Spine Posture Forward Head L-Spine Posture Increased Lordosis Pelvis Posture Anteriorly Tilted Knee Posture (L) Genu Valgus,(R) Genu Valgus Comments Posture Comments Dowagers hump. R UT tightness . PT-OP-K Range of Motion Start: 07/06/23 17:49 Freq: Status: Active Protocol: Document 07/14/23 13:44 LRN (Rec: 07/14/23 16:51 LRN [id number]) Lumbar Spine Range of Motion Lumbar Spine Active Degrees Testing Position Standing Flexion 95 Extension 20 Rotation Left 45 Rotation Right 30 Lateral Flexion Left 27 Lateral Flexion Right 20 Comments 95/55 20/20 Hip Goniometric Range of Motion Hip Right Passive Testing Position Supine Internal Rotation 20 External Rotation 60 Left Passive Testing Position Supine Internal Rotation 10 External Rotation 90 Comments Resting position, hip starts at 30 deg's ER. PT-OP-M Strength Start: 07/06/23 17:49 Freq: Status: Active Protocol: Document 07/14/23 13:44 LRN (Rec: 07/14/23 16:51 LRN [id number]) Trunk Strength Trunk Manual Muscle Testing Core Stabilization Fair core stability during MMT of LE's. Most notable decrease in rotational stability. Hip Strength Hip Manual Muscle Testing Right Extension (S1) 3 Fair Adduction 4 Good Comments Strength is 5/5 except as indicated above. Left Extension (S1) 3+ Fair+ Adduction 3+ Fair+ Comments Strength is 5/5 except as indicated above. PT-OP-Q Treatments Start: 07/06/23 17:49 Freq: Status: Active Protocol: Document 08/04/23 13:49 LRN (Rec: 08/04/23 14:35 LRN [id number]) Therapeutic Exercises Supine Exercises Fig 4 stretch Supine Exercise Name Semi-reclined (just drank h2O) : Fig 4 stretch Side bilateral Reps/Minutes 5' Comments Extra time to determine stretch position Lateral Hip stretch Supine Exercise Name Semi-reclined (just drank h20) : Lateral Hip stretch Side bilateral Reps/Minutes 5' Comments Extra time to determine stretch position Piriformis stretch Supine Exercise Name Semi-recline (just drank h2O): Knee to opp shoulder & holding ankle. Side bilateral Reps/Minutes 5' Comments Extra time to determine stretch position Bowel massage Supine Exercise Name Bowel massage f/b drinking a glass of warm water. Reps/Minutes 8' Frog stretch Supine Exercise Name Frog stretch for hip AD's Side bilateral Reps/Minutes 5'' KTC stretch Supine Exercise Name KTC Side bilateral Reps/Minutes 3 breath hold x 6 Sitting Exercises Deep Breathing Sitting Exercise Name Deep Breathing Reps/Minutes 3' SL Hip AD stretch Sitting Exercise Name SL Hip AD stretch Side bilateral Reps/Minutes 5' Self-Care/Home Management Treatment Education Patient Education Home Exercise Program Activities Self-Care/Home Management Activities Re-issued handout for HEP: hip AD stretch (SL & Richard), and Piriformis stretch (knee to opp shdr), Lateral hip and Fig 4 stretch. PT-OP-T Assessment and Plan Start: 07/06/23 17:49 Freq: Status: Active Protocol: Document 08/04/23 13:49 LRN (Rec: 08/04/23 14:35 LRN [id number]) Physical Therapy Assessment Goals Five Impairment PF abdominal pain prior to need for BM and anal pain () with BM. Short Term Goal (STG) Pt educated in proper deep breathing for PF relaxation and Bowel massage/bowel care. 08/04/23: Deep Breathing training and reviewed Bowel massage and discussed bowel care. STG Duration 1 wk-07/21/23 (08/04/23: MET GOAL) Dorr Operator Goal (LTG) Pt will have reduction or eliimination of anal and lower abdominal pain with BM's. LTG Duration 12 wks-10/06/23 Four Impairment Urinary incontinence with a strong cough, sneeze. Short Term Goal (STG) Improve PF strength per Long Hold 10 sec's prior to fatigue and Quick Flicks 7-8 reps in 10 secs. STG Duration 6 wks-08/25/23 Intermediate Goal (LTG) Pt will have decreased complaints of urinary stress incontinent symptoms and will be able to maintain continence in the presence of a strong cough, sneeze and with laughing. LTG Duration 12 wks-10/06/23 Three Impairment Decreased hip mobility limiting PF and core strength Impairment Decreased hip mobility: IR 10 L, 20 R; ER 90 L, 60 R). Short Term Goal (STG) Pt will be independent with a HEP of hip stretches (mainly richard IR's and R ER), and hip ext, AD strengthening exercises. 08/04/23: HEP: hip AD stretch (SL & Richard) and hip IR (knee to opp shoulder, lat hip) and ER (fig4). STG Duration 6 wks-08/25/23 progressed Dorr Operator Goal (LTG) Pt will demonstrate improved richard hip IR and R hip ER PROM, and improve hip ext and AD strength by 1/2 grade or more. LTG Duration 12 wks-10/06/23 Two Impairment Poor core stability limiting exercise tolerance. Short Term Goal (STG) Pt will be educated in how to exercise safely by tracking HR and performing a TA while normal breathing. STG Duration 3 wks-08/04/23 Intermediate Goal (LTG) Improve core stability with pt able to maintain a TA contraction with exercise to be able to functionally exercise (to help with wgt loss). LTG Duration 12 wks-10/06/23 One Impairment Pt lacks an independent self care HEP. Short Term Goal (STG) Pt educated in proper transfers to lessen core abdominal pressure. STG Duration 2 wks-07/28/23 Dorr Operator Goal (LTG) Pt will be independent in a self care HEP for PF strengthening and be able to coordinate pulling up/in with PF (anter/technology lab teacher) and abdomen with a PF contraction. 08/04/23: Re-Issued HEP of Kegel ex's w/focus on long holds. LTG Duration 12 wks-10/06/23 progressed 08/04/23 Assessment Summary Assessment 68 yo female with complaints of anal/abdominal pain with/ prior to BM's, respectively. Pt was not doing Bowel massage correctly; therefore was not helpful. Pt now has a better understanding after review and is expected to show improvement with bowel massage. No problems noted with hip stretches, although expect review will be needed. Physical Therapy Plan Frequency and Duration Frequency of Treatment 1x/Week Duration of treatment (weeks) 12 Plan of Care Start Date 07/14/23 Plan of Care End Date 10/06/23 Next Visit Focus/Plan Next Note Type Treatment Note Next Visit Plan Next: Recheck response to BM massage. PF assessment with Vemg if pt agreeable. Try Manual therapy to abdomen, with reports of pt having kinked colon. Resting HR and exercise parameters with pt education in self HR assessment. Pt education in bladder retraining with urge deference technique, Neuro-scott: proper Kegel without use of substitute muscles, reduction of intra- abdominal pressure, proper deep breathing, and proper breathing with transfers and body mechanics (functional activities). Proper drawing up of PF with contraction (not bulging at abdomen, PF, anus) . Strengthening: Core (TA, prevent doming), hip AD & extensors. ROM: richard IR, R ER, extenson ( ? hip AD), LB flex stretch. Manual: BM massage, Ilipsoas release, hip mobs, abdomen ( check urachus), bladder, intestines POC: Constipation mgmt, anal/ lower abdominal pain reduction rehab and stress urinary incontinence rehab.
--- NOTE | 2023-08-15 09:17 | PT.OTN ---
Current Diagnoses Stiffness of unspecified hip, not elsewhere classified (08/15/23) Muscle weakness (generalized) (08/15/23) Stress incontinence (female) (male) (08/15/23) Pelvic and perineal pain (08/15/23) Physical Therapy Treatment Note PT-OP-A Visit Information Start: 07/06/23 17:49 Freq: Status: Active Protocol: Document 08/15/23 08:21 LRN (Rec: 08/15/23 09:16 LRN [id number]) Out-Patient Physical Therapy Visit Information Visit Information Visit Type Treatment Note Visit Start Time 08:21 Visit Stop Time 08:59 Visit Number 4 Evaluation Information Evaluation Date 07/14/23 Precautions Precautions BPPV if bends over head down, Hyste followed by Bladder sling surgery in 2004, intestinal blockage surgery (8 -10 inches of upper small intenstine bowels removed) 2019, and facial surgery 2007, history of hemorrhoids, heart condition of PVCs. PT-OP-B Current Condition Start: 07/06/23 17:49 Freq: Status: Active Protocol: Document 07/14/23 13:44 LRN (Rec: 07/14/23 16:51 LRN [id number]) Current Condition History of Current Condition Onset Date 05/05/2020 Current Complaints PF weakness, hemorrhoid pain with BM, stress incontinence. History of Current Condition Pt states her main reason for PT is because of stress incontinence (started 40 yrs ago) and hemorrhoid pain since bowel surgery for bowel blockage 3 yrs ago. She reports an emergency surgery ( 05/05/2020) to remove 8-10 inches of upper small intenstine bowels. She has had a hyste in 2004 with complications due to scar tissue, then [place] [facility] [place] of urinary leakage. Now having a couple drops of urinary leakage with cough, sneeze and strong urge. Had 4 sessions with PF PT in [place] ([facility] in [place], [place]) to help build PF ms tone and worked on identifying core ms and hemorrhoid and sphincter muscles and and how to contract them. States she was just learning when she had to leave and was given a few exercises. 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 Prior Treatments and Tests PF physical therapy in [facility]. Developmental History Developmental History 58 yrs of playing violin causing neck pain and has a family history of cervical spinal stenosis. Treatment Goals Patient/Caregiver Goals Pt goals: Deep Breath properly, functional exercise to lose wgt and learn how to exercise safely, eliminate urinary incontinence, and reduce pain with BM's. Personal Factors Other Personal Factors That May Effect Pt reported: Therapy/Recovery Heart condition of PVCs, was told by pattern keeper to work up to exercise, Bowel surgery for bowel blockage 3 yrs ago, Hyste followed by Bladder sling surgery in 2004, History of hemorrhoids. PT-OP-C Subjective Start: 07/06/23 17:49 Freq: Status: Active Protocol: Document 08/15/23 08:21 LRN (Rec: 08/15/23 09:16 LRN [id number]) OP-PT Subjective Patient Comments Patient Comments Must stay upright due to dizziness/vestibular pxs this week. Abdominal pain is good, everything is normal & has been taking magnesium and probiotics.. No bowel/bladder diary. PT-OP-I Pelvic Floor Start: 07/06/23 17:49 Freq: Status: Active Protocol: Document 07/14/23 13:44 LRN (Rec: 07/14/23 16:51 LRN [id number]) Pelvic Floor Assessment Urine Pelvic Floor Surgery No Leakage Size Small Leakage Cause Cough,Sneeze,Urge Other Leakage Causes Elliptical, jogs in place and jumping jacks, Sr ex's with weights and walks. NO leakage if urinates before ex and jogs gentle. Bowel Bowel Surgery Yes Bowel Symptoms Constipation,Pain Other Bowel Symptoms Hemorrhoids. Bowel Movement Frequency Daily [place] Stool Chart Type 1-7 4 Pelvic Clock Pelvic Clock Other Tender at 5 O'Clock Prolapse Urethrocele Grade 2 Prolapse Comments Bulge at anus with cough. Perineal Descent Resting Present Bearing Absent Contraction Ability Voluntary Contraction Weak Voluntary Relaxation Moderate Manual Muscle Testing Left 2 Manual Muscle Testing Right 2 Manual Muscle Testing Anterior 1 Manual Muscle Testing Posterior 3 Muscle Endurance (Seconds) 10 Number of Quick Contractions In 10 4 Seconds Comments Pelvic Floor Comments Dry tissues externally. Lacks clitoral nod, has anal wink. PT-OP-J Posture/Palpation/Skin Start: 07/06/23 17:49 Freq: Status: Active Protocol: Document 07/14/23 13:44 LRN (Rec: 07/14/23 16:51 LRN [id number]) Posture Evaluation Position Standing Head/C-Spine Posture Forward Head L-Spine Posture Increased Lordosis Pelvis Posture Anteriorly Tilted Knee Posture (L) Genu Valgus,(R) Genu Valgus Comments Posture Comments Dowagers hump. R UT tightness . PT-OP-K Range of Motion Start: 07/06/23 17:49 Freq: Status: Active Protocol: Document 07/14/23 13:44 LRN (Rec: 07/14/23 16:51 LRN [id number]) Lumbar Spine Range of Motion Lumbar Spine Active Degrees Testing Position Standing Flexion 95 Extension 20 Rotation Left 45 Rotation Right 30 Lateral Flexion Left 27 Lateral Flexion Right 20 Comments 95/55 20/20 Hip Goniometric Range of Motion Hip Right Passive Testing Position Supine Internal Rotation 20 External Rotation 60 Left Passive Testing Position Supine Internal Rotation 10 External Rotation 90 Comments Resting position, hip starts at 30 deg's ER. PT-OP-M Strength Start: 07/06/23 17:49 Freq: Status: Active Protocol: Document 07/14/23 13:44 LRN (Rec: 07/14/23 16:51 LRN [id number]) Trunk Strength Trunk Manual Muscle Testing Core Stabilization Fair core stability during MMT of LE's. Most notable decrease in rotational stability. Hip Strength Hip Manual Muscle Testing Right Extension (S1) 3 Fair Adduction 4 Good Comments Strength is 5/5 except as indicated above. Left Extension (S1) 3+ Fair+ Adduction 3+ Fair+ Comments Strength is 5/5 except as indicated above. PT-OP-Q Treatments Start: 07/06/23 17:49 Freq: Status: Active Protocol: Document 08/15/23 08:21 LRN (Rec: 08/15/23 09:16 LRN [id number]) Therapeutic Exercises Supine Exercises Fig 4 stretch Supine Exercise Name Semi-reclined (just drank h2O) : Fig 4 stretch Side bilateral Reps/Minutes 5' Comments Extra time to determine stretch position Lateral Hip stretch Supine Exercise Name Semi-reclined (just drank h20) : Lateral Hip stretch Side bilateral Reps/Minutes 5' Comments Extra time to determine stretch position Piriformis stretch Supine Exercise Name Semi-recline (just drank h2O): Knee to opp shoulder & holding ankle. Side bilateral Reps/Minutes 5' Comments Extra time to determine stretch position Bowel massage Supine Exercise Name Semi-reclined: Bowel massage f /b drinking a glass of warm water. Reps/Minutes 8' Frog stretch Supine Exercise Name Frog stretch for hip AD's Side bilateral Reps/Minutes 5'' KTC stretch Supine Exercise Name KTC Side bilateral Reps/Minutes 3 breath hold x 6 Deep Breathing Supine Exercise Name Deep Breathing Reps/Minutes 3x Manual Therapy Treatment Soft Tissue Mobilization Abdomen Body Location Abdomen Mobilization Type Myofascial Release Intensity/Depth Moderate Body Position Supine Comments Focus more on L side due to restrictions PT-OP-T Assessment and Plan Start: 07/06/23 17:49 Freq: Status: Active Protocol: Document 08/15/23 08:21 LRN (Rec: 08/15/23 09:16 LRN [id number]) Physical Therapy Assessment Goals Five Impairment PF abdominal pain prior to need for BM and anal pain () with BM. Short Term Goal (STG) Pt educated in proper deep breathing for PF relaxation and Bowel massage/bowel care. 08/04/23: Deep Breathing training and reviewed Bowel massage and discussed bowel care. STG Duration 1 wk-07/21/23 (08/04/23: MET GOAL) Termite Inspector Goal (LTG) Pt will have reduction or eliimination of anal and lower abdominal pain with BM's. 08/15/23: No abdominal or anal pain with BM. Uses stool for her squatty potty. LTG Duration 12 wks-10/06/23 (08/15/23: MET GOAL) Four Impairment Urinary incontinence with a strong cough, sneeze. Short Term Goal (STG) Improve PF strength per Long Hold 10 sec's prior to fatigue and Quick Flicks 7-8 reps in 10 secs. STG Duration 6 wks-08/25/23 Termite Inspector Goal (LTG) Pt will have decreased complaints of urinary stress incontinent symptoms and will be able to maintain continence in the presence of a strong cough, sneeze and with laughing. LTG Duration 12 wks-10/06/23 Three Impairment Decreased hip mobility limiting PF and core strength Impairment Decreased hip mobility: IR 10 L, 20 R; ER 90 L, 60 R). Short Term Goal (STG) Pt will be independent with a HEP of hip stretches (mainly richard IR's and R ER), and hip ext, AD strengthening exercises. 08/04/23: HEP: hip AD stretch (SL & Richard) and hip IR (knee to opp shoulder, lat hip) and ER (fig4). STG Duration 6 wks-08/25/23 progressed Mcc Goal (LTG) Pt will demonstrate improved richard hip IR and R hip ER PROM, and improve hip ext and AD strength by 1/2 grade or more. LTG Duration 12 wks-10/06/23 Two Impairment Poor core stability limiting exercise tolerance. Short Term Goal (STG) Pt will be educated in how to exercise safely by tracking HR and performing a TA while normal breathing. STG Duration 3 wks-08/04/23 Termite Inspector Goal (LTG) Improve core stability with pt able to maintain a TA contraction with exercise to be able to functionally exercise (to help with wgt loss). LTG Duration 12 wks-10/06/23 One Impairment Pt lacks an independent self care HEP. Short Term Goal (STG) Pt educated in proper transfers to lessen core abdominal pressure. STG Duration 2 wks-07/28/23 Mcc Goal (LTG) Pt will be independent in a self care HEP for PF strengthening and be able to coordinate pulling up/in with PF (anter/inward toll operator) and abdomen with a PF contraction. 08/04/23: Re-Issued HEP of Kegel ex's w/focus on long holds. LTG Duration 12 wks-10/06/23 progressed 08/04/23 Assessment Summary Assessment 68 yo female with complaints of anal/abdominal pain with/ prior to BM's, respectively. No c/o pain with BM's, reportedly if pt takes her Mg/ probiotics, warm water after Bowel massage. Today pt requires reclined position w/ ex due to vestibular dysfunction. Abdominal tightness on L side, probably scar tissue related, Urachus mobility is good. Goal 5 met; therefore focus to be on JANNETTE, hip mob & core/TA stab. Physical Therapy Plan Frequency and Duration Frequency of Treatment Every Other Week Duration of treatment (weeks) 12 Plan of Care Start Date 07/14/23 Plan of Care End Date 10/06/23 Next Visit Focus/Plan Next Note Type Treatment Note Next Visit Plan Next: PF assessment with Vemg if pt agreeable. Resting HR and exercise parameters with pt education in self HR assessment. Education: bladder retraining with urge deference technique, (STG 2) exercise safely by tracking HR and performing a TA while normal breathing Neuro-scott: proper Kegel without use of substitute muscles, (STG 1) proper transfers to lessen core abdominal pressure, and proper breathing with transfers and body mechanics ( functional activities). Proper drawing up of PF with contraction (not bulging at abdomen, PF, anus). Strengthening: Core (TA, prevent doming), hip AD & extensors. ROM: extenson (? hip AD), LB flex stretch. Manual: Ilipsoas release, hip mobs, bladder, intestines, & as needed manual therapy to L abdomen, to unkink colon. POC: JANNETTE rehab, core/TA stab, imiprove hip mobility.
--- NOTE | 2023-09-01 13:52 | PT.OTN ---
Current Diagnoses Stiffness of unspecified hip, not elsewhere classified (09/01/23) Muscle weakness (generalized) (09/01/23) Stress incontinence (female) (male) (09/01/23) Pelvic and perineal pain (09/01/23) Physical Therapy Treatment Note PT-OP-A Visit Information Start: 07/06/23 17:49 Freq: Status: Active Protocol: Document 09/01/23 13:01 LRN (Rec: 09/01/23 13:51 LRN [id number]) Out-Patient Physical Therapy Visit Information Visit Information Visit Type Treatment Note Visit Start Time 13:01 Visit Stop Time 13:42 Visit Number 5 Evaluation Information Evaluation Date 07/14/23 Precautions Precautions BPPV if bends over head down, Hyste followed by Bladder sling surgery in 2004, intestinal blockage surgery (8 -10 inches of upper small intenstine bowels removed) 2019, and facial surgery 2007, history of hemorrhoids, heart condition of PVCs. PT-OP-B Current Condition Start: 07/06/23 17:49 Freq: Status: Active Protocol: Document 07/14/23 13:44 LRN (Rec: 07/14/23 16:51 LRN [id number]) Current Condition History of Current Condition Onset Date 05/05/2020 Current Complaints PF weakness, hemorrhoid pain with BM, stress incontinence. History of Current Condition Pt states her main reason for PT is because of stress incontinence (started 40 yrs ago) and hemorrhoid pain since bowel surgery for bowel blockage 3 yrs ago. She reports an emergency surgery ( 05/05/2020) to remove 8-10 inches of upper small intenstine bowels. She has had a hyste in 2004 with complications due to scar tissue, then had a bladder sling put in later in 2004 (in [facility]) with resolution of urinary leakage. Now having a couple drops of urinary leakage with cough, sneeze and strong urge. Had 4 sessions with PF PT in [place] (Formerly [facility] in [place], [place]) to help build PF ms tone and worked on identifying core ms and hemorrhoid and sphincter muscles and and how to contract them. States she was just learning when she had to leave and was given a few exercises. 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 Prior Treatments and Tests PF physical therapy in [facility]. Developmental History Developmental History 58 yrs of playing violin causing neck pain and has a family history of cervical spinal stenosis. Treatment Goals Patient/Caregiver Goals Pt goals: Deep Breath properly, functional exercise to lose wgt and learn how to exercise safely, eliminate urinary incontinence, and reduce pain with BM's. Personal Factors Other Personal Factors That May Effect Pt reported: Therapy/Recovery Heart condition of PVCs, was told by industrial gas fitter helper to work up to exercise, Bowel surgery for bowel blockage 3 yrs ago, Hyste followed by Bladder sling surgery in 2004, History of hemorrhoids. PT-OP-C Subjective Start: 07/06/23 17:49 Freq: Status: Active Protocol: Document 09/01/23 13:01 LRN (Rec: 09/01/23 13:51 LRN [id number]) OP-PT Subjective Patient Comments Patient Comments Has been good. Issues with going to the bathroom has resolved. BM's have been okay . States not taking probiotics was the problem. Very slight UI with sneeze. Next wk not able to attend therapy due to being out of town. PT-OP-I Pelvic Floor Start: 07/06/23 17:49 Freq: Status: Active Protocol: Document 07/14/23 13:44 LRN (Rec: 07/14/23 16:51 LRN [id number]) Pelvic Floor Assessment Urine Pelvic Floor Surgery No Leakage Size Small Leakage Cause Cough,Sneeze,Urge Other Leakage Causes Elliptical, jogs in place and jumping jacks, Sr ex's with weights and walks. NO leakage if urinates before ex and jogs gentle. Bowel Bowel Surgery Yes Bowel Symptoms Constipation,Pain Other Bowel Symptoms Hemorrhoids. Bowel Movement Frequency Daily [place] Stool Chart Type 1-7 4 Pelvic Clock Pelvic Clock Other Tender at 5 O'Clock Prolapse Urethrocele Grade 2 Prolapse Comments Bulge at anus with cough. Perineal Descent Resting Present Bearing Absent Contraction Ability Voluntary Contraction Weak Voluntary Relaxation Moderate Manual Muscle Testing Left 2 Manual Muscle Testing Right 2 Manual Muscle Testing Anterior 1 Manual Muscle Testing Posterior 3 Muscle Endurance (Seconds) 10 Number of Quick Contractions In 10 4 Seconds Comments Pelvic Floor Comments Dry tissues externally. Lacks clitoral nod, has anal wink. PT-OP-J Posture/Palpation/Skin Start: 07/06/23 17:49 Freq: Status: Active Protocol: Document 07/14/23 13:44 LRN (Rec: 07/14/23 16:51 LRN [id number]) Posture Evaluation Position Standing Head/C-Spine Posture Forward Head L-Spine Posture Increased Lordosis Pelvis Posture Anteriorly Tilted Knee Posture (L) Genu Valgus,(R) Genu Valgus Comments Posture Comments Dowagers hump. R UT tightness . PT-OP-K Range of Motion Start: 07/06/23 17:49 Freq: Status: Active Protocol: Document 07/14/23 13:44 LRN (Rec: 07/14/23 16:51 LRN [id number]) Lumbar Spine Range of Motion Lumbar Spine Active Degrees Testing Position Standing Flexion 95 Extension 20 Rotation Left 45 Rotation Right 30 Lateral Flexion Left 27 Lateral Flexion Right 20 Comments 95/55 20/20 Hip Goniometric Range of Motion Hip Right Passive Testing Position Supine Internal Rotation 20 External Rotation 60 Left Passive Testing Position Supine Internal Rotation 10 External Rotation 90 Comments Resting position, hip starts at 30 deg's ER. PT-OP-M Strength Start: 07/06/23 17:49 Freq: Status: Active Protocol: Document 07/14/23 13:44 LRN (Rec: 07/14/23 16:51 LRN [id number]) Trunk Strength Trunk Manual Muscle Testing Core Stabilization Fair core stability during MMT of LE's. Most notable decrease in rotational stability. Hip Strength Hip Manual Muscle Testing Right Extension (S1) 3 Fair Adduction 4 Good Comments Strength is 5/5 except as indicated above. Left Extension (S1) 3+ Fair+ Adduction 3+ Fair+ Comments Strength is 5/5 except as indicated above. PT-OP-Q Treatments Start: 07/06/23 17:49 Freq: Status: Active Protocol: Document 09/01/23 13:01 LRN (Rec: 09/01/23 13:51 LRN [id number]) Therapeutic Exercises Supine Exercises Fig 4 stretch Supine Exercise Name Semi-reclined (just drank h2O) : Fig 4 stretch Side right Reps/Minutes 5' Comments Extra time to determine stretch position Lateral Hip stretch Supine Exercise Name Semi-reclined (just drank h20) : Lateral Hip stretch Side bilateral Reps/Minutes 5' Comments Extra time to determine stretch position Piriformis stretch Supine Exercise Name Semi-recline (just drank h2O): Knee to opp shoulder & holding ankle. Side bilateral Reps/Minutes 5' Comments Extra time to determine stretch position Frog stretch Supine Exercise Name Frog stretch for hip AD's Side bilateral Reps/Minutes 5'' KTC stretch Supine Exercise Name KTC Side bilateral Reps/Minutes 3 breath hold x 6 Deep Breathing Supine Exercise Name Deep Breathing Reps/Minutes 3x Sitting Exercises Deep Breathing Sitting Exercise Name Deep Breathing Reps/Minutes 2' SL Hip AD stretch Sitting Exercise Name SL Hip AD stretch Side bilateral Reps/Minutes 5' Other Exercises 4 pt TA Other Exercise Name 4 pt TA Reps/Minutes 3' Comments Extra time for cuing for neutral spine and TA tightneing. Self-Care/Home Management Treatment Activities Self-Care/Home Management Activities Issued & reviewed bladder retraining with urge deference technique. PT-OP-T Assessment and Plan Start: 07/06/23 17:49 Freq: Status: Active Protocol: Document 09/01/23 13:01 LRN (Rec: 09/01/23 13:51 LRN [id number]) Physical Therapy Assessment Goals Four Impairment Urinary incontinence with a strong cough, sneeze. Short Term Goal (STG) Improve PF strength per Long Hold 10 sec's prior to fatigue and Quick Flicks 7-8 reps in 10 secs. STG Duration 6 wks-08/25/23 Optical Engineering Technician Goal (LTG) Pt will have decreased complaints of urinary stress incontinent symptoms and will be able to maintain continence in the presence of a strong cough, sneeze and with laughing. 09/01/23: 90% of time if contracts before coughing, sneezin or laughing, otherwise still leaking. LTG Duration 12 wks-10/06/23 progressing 09/01/23 Three Impairment Decreased hip mobility limiting PF and core strength Impairment Decreased hip mobility: IR 10 L, 20 R; ER 90 L, 60 R). Short Term Goal (STG) Pt will be independent with a HEP of hip stretches (mainly richard IR's and R ER), and hip ext, AD strengthening exercises. 08/04/23: HEP: hip AD stretch (SL & Richard) and hip IR (knee to opp shoulder, lat hip) and ER (fig4). 09/01/23: Pt needing review of HEP. STG Duration 6 wks-08/25/23 progressed Optical Engineering Technician Goal (LTG) Pt will demonstrate improved richard hip IR and R hip ER PROM, and improve hip ext and AD strength by 1/2 grade or more. LTG Duration 12 wks-10/06/23 Two Impairment Poor core stability limiting exercise tolerance. Short Term Goal (STG) Pt will be educated in how to exercise safely by tracking HR and performing a TA while normal breathing. STG Duration 3 wks-08/04/23 Optical Engineering Technician Goal (LTG) Improve core stability with pt able to maintain a TA contraction with exercise to be able to functionally exercise (to help with wgt loss). LTG Duration 12 wks-10/06/23 One Impairment Pt lacks an independent self care HEP. Short Term Goal (STG) Pt educated in proper transfers to lessen core abdominal pressure. STG Duration 2 wks-07/28/23 Optical Engineering Technician Goal (LTG) Pt will be independent in a self care HEP for PF strengthening and be able to coordinate pulling up/in with PF (anter/theatrical dresser) and abdomen with a PF contraction. 08/04/23: Re-Issued HEP of Kegel ex's w/focus on long holds. LTG Duration 12 wks-10/06/23 progressed 08/04/23 Assessment Summary Assessment 68 yo female referred for JANNETTE, core stab; complaints of anal /abdominal pain with/prior to BM's, respectively. Pt is now appears to be having daily BMs. Pt didn't mention having anal/abdominal pain today. She coordinates deep breathing after initial training; therefore further assessment is needed. Pt very interested in ex to improve core tightening and being able to ex for wgt loss. Physical Therapy Plan Frequency and Duration Frequency of Treatment Every Other Week Duration of treatment (weeks) 12 Plan of Care Start Date 07/14/23 Plan of Care End Date 10/06/23 Next Visit Focus/Plan Next Note Type Treatment Note Next Visit Plan Next: Add to HEP: hip Iliopsoas stretch & hip AD strengthening. Pt education and ?PF assessment with Vemg if pt agreeable. Resting HR and exercise parameters with pt education in self HR assessment. (STG 2) exercise safely by tracking HR and performing a TA while normal breathing. Neuro-scott: proper Kegel without use of substitute muscles, (STG 1) proper transfers to lessen core abdominal pressure, and proper breathing with transfers and body mechanics ( functional activities). Proper drawing up of PF with contraction (not bulging at abdomen, PF, anus). Strengthening: Core (TA, prevent doming), hip AD & extensors. ROM: extenson (? hip AD), LB flex stretch. Manual: Ilipsoas release, hip mobs, bladder, intestines, & as needed manual therapy to L abdomen, to unkink colon. POC: JANNETTE rehab, core/TA stab, improve hip mobility.
--- NOTE | 2023-10-06 12:25 | PT.OTN ---
Current Diagnoses Stiffness of unspecified hip, not elsewhere classified (10/06/23) Muscle weakness (generalized) (10/06/23) Stress incontinence (female) (male) (10/06/23) Pelvic and perineal pain (10/06/23) Physical Therapy Treatment Note PT-OP-A Visit Information Start: 07/06/23 17:49 Freq: Status: Active Protocol: Document 10/06/23 11:21 LRN (Rec: 10/06/23 12:14 LRN [id number]) Out-Patient Physical Therapy Visit Information Visit Information Visit Type Progress Note Visit Start Time 11:21 Visit Stop Time 12:59 Visit Number 6 Evaluation Information Evaluation Date 07/14/23 Precautions Precautions BPPV if bends over head down, Hyste followed by Bladder sling surgery in 2004, intestinal blockage surgery (8 -10 inches of upper small intenstine bowels removed) 2019, and facial surgery 2007, history of hemorrhoids, heart condition of PVCs. PT-OP-B Current Condition Start: 07/06/23 17:49 Freq: Status: Active Protocol: Document 07/14/23 13:44 LRN (Rec: 07/14/23 16:51 LRN [id number]) Current Condition History of Current Condition Onset Date 05/05/2020 Current Complaints PF weakness, hemorrhoid pain with BM, stress incontinence. History of Current Condition Pt states her main reason for PT is because of stress incontinence (started 40 yrs ago) and hemorrhoid pain since bowel surgery for bowel blockage 3 yrs ago. She reports an emergency surgery ( 05/05/2020) to remove 8-10 inches of upper small intenstine bowels. She has had a hyste in 2004 with complications due to scar tissue, then had a bladder sling put in later in 2004 (in [facility]) with resolution of urinary leakage. Now having a couple drops of urinary leakage with cough, sneeze and strong urge. Had 4 sessions with PF PT in [place] ([facility] in [place], [place]) to help build PF ms tone and worked on identifying core ms and hemorrhoid and sphincter muscles and and how to contract them. States she was just learning when she had to leave and was given a few exercises. 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 Prior Treatments and Tests PF physical therapy in [facility]. Developmental History Developmental History 58 yrs of playing violin causing neck pain and has a family history of cervical spinal stenosis. Treatment Goals Patient/Caregiver Goals Pt goals: Deep Breath properly, functional exercise to lose wgt and learn how to exercise safely, eliminate urinary incontinence, and reduce pain with BM's. Personal Factors Other Personal Factors That May Effect Pt reported: Therapy/Recovery Heart condition of PVCs, was told by greenstone polisher operator to work up to exercise, Bowel surgery for bowel blockage 3 yrs ago, Hyste followed by Bladder sling surgery in 2004, History of hemorrhoids. PT-OP-C Subjective Start: 07/06/23 17:49 Freq: Status: Active Protocol: Document 10/06/23 11:21 LRN (Rec: 10/06/23 12:14 LRN [id number]) OP-PT Subjective Patient Comments Patient Comments Has been traveling and working in garden, lifting and getting dizzy. Has been every other day with ex's. Has been drinking warm water and it has helped with her BM's. Today pushed and had bleeding with hemorrhoid (couple times this month). Has questions regarding last issued handout. PT-OP-I Pelvic Floor Start: 07/06/23 17:49 Freq: Status: Active Protocol: Document 07/14/23 13:44 LRN (Rec: 07/14/23 16:51 LRN [id number]) Pelvic Floor Assessment Urine Pelvic Floor Surgery No Leakage Size Small Leakage Cause Cough,Sneeze,Urge Other Leakage Causes Elliptical, jogs in place and jumping jacks, Sr ex's with weights and walks. NO leakage if urinates before ex and jogs gentle. Bowel Bowel Surgery Yes Bowel Symptoms Constipation,Pain Other Bowel Symptoms Hemorrhoids. Bowel Movement Frequency Daily [place] Stool Chart Type 1-7 4 Pelvic Clock Pelvic Clock Other Tender at 5 O'Clock Prolapse Urethrocele Grade 2 Prolapse Comments Bulge at anus with cough. Perineal Descent Resting Present Bearing Absent Contraction Ability Voluntary Contraction Weak Voluntary Relaxation Moderate Manual Muscle Testing Left 2 Manual Muscle Testing Right 2 Manual Muscle Testing Anterior 1 Manual Muscle Testing Posterior 3 Muscle Endurance (Seconds) 10 Number of Quick Contractions In 10 4 Seconds Comments Pelvic Floor Comments Dry tissues externally. Lacks clitoral nod, has anal wink. PT-OP-J Posture/Palpation/Skin Start: 07/06/23 17:49 Freq: Status: Active Protocol: Document 07/14/23 13:44 LRN (Rec: 07/14/23 16:51 LRN [id number]) Posture Evaluation Position Standing Head/C-Spine Posture Forward Head L-Spine Posture Increased Lordosis Pelvis Posture Anteriorly Tilted Knee Posture (L) Genu Valgus,(R) Genu Valgus Comments Posture Comments Dowagers hump. R UT tightness . PT-OP-K Range of Motion Start: 07/06/23 17:49 Freq: Status: Active Protocol: Document 07/14/23 13:44 LRN (Rec: 07/14/23 16:51 LRN [id number]) Lumbar Spine Range of Motion Lumbar Spine Active Degrees Testing Position Standing Flexion 95 Extension 20 Rotation Left 45 Rotation Right 30 Lateral Flexion Left 27 Lateral Flexion Right 20 Comments 95/55 20/20 Hip Goniometric Range of Motion Hip Right Passive Testing Position Supine Internal Rotation 20 External Rotation 60 Left Passive Testing Position Supine Internal Rotation 10 External Rotation 90 Comments Resting position, hip starts at 30 deg's ER. PT-OP-M Strength Start: 07/06/23 17:49 Freq: Status: Active Protocol: Document 07/14/23 13:44 LRN (Rec: 07/14/23 16:51 LRN [id number]) Trunk Strength Trunk Manual Muscle Testing Core Stabilization Fair core stability during MMT of LE's. Most notable decrease in rotational stability. Hip Strength Hip Manual Muscle Testing Right Extension (S1) 3 Fair Adduction 4 Good Comments Strength is 5/5 except as indicated above. Left Extension (S1) 3+ Fair+ Adduction 3+ Fair+ Comments Strength is 5/5 except as indicated above. PT-OP-Q Treatments Start: 07/06/23 17:49 Freq: Status: Active Protocol: Document 10/06/23 11:21 LRN (Rec: 10/06/23 12:14 LRN [id number]) Therapeutic Exercises Supine Exercises Lateral Hip stretch Supine Exercise Name Semi-reclined: Lateral Hip stretch Side bilateral Reps/Minutes 4' Piriformis stretch Supine Exercise Name Semi-recline: Knee to opp shoulder & holding ankle. Side bilateral Reps/Minutes 4' Frog stretch Supine Exercise Name Frog stretch for hip AD's Side bilateral Reps/Minutes 3' KTC stretch Supine Exercise Name Semi reclined KTC Side bilateral Reps/Minutes 3 breath hold x 6 Deep Breathing Supine Exercise Name Semi-reclined Deep Breathing Reps/Minutes 3' Sitting Exercises Deep Breathing Sitting Exercise Name Deep Breathing Reps/Minutes 2' Comments Cued to plant elbows and to feel rib expansion. SL Hip AD stretch Sitting Exercise Name SL Hip AD stretch Side bilateral Reps/Minutes 4' Standing Exercises Iliopsoas stretch Standing Exercise Name Iliopsoas stretch Side bilateral Reps/Minutes 1' hold each (4') Comments Extra time needed to determine stretch and tino to stretch Self-Care/Home Management Treatment Education Other Education Discussed voiding just in case and involvement with urinating retraining. Educated pt in use of urinary delay technique to normalize times between voids if needed. Activities Self-Care/Home Management Activities Issued & reviewed HEP: 2 handout for Diaphragmatic Breathing in sit & in supine; and standing Iliopsoas stretch . Re-issued handout for hip stretches (Piriformis, lateral hiop and Fig 4). PT-OP-T Assessment and Plan Start: 07/06/23 17:49 Freq: Status: Active Protocol: Document 10/06/23 11:21 LRN (Rec: 10/06/23 12:14 LRN [id number]) Physical Therapy Assessment Goals Four Impairment Urinary incontinence with a strong cough, sneeze. Short Term Goal (STG) Improve PF strength per Long Hold 10 sec's prior to fatigue and Quick Flicks 7-8 reps in 10 secs. STG Duration 6 wks-11/17/23 Account Relationship Manager Goal (LTG) Pt will have decreased complaints of urinary stress incontinent symptoms and will be able to maintain continence in the presence of a strong cough, sneeze and with laughing. 09/01/23: 90% of time if contracts before coughing, sneezin or laughing, otherwise still leaking. LTG Duration 12 wks-12/29/23 progressing 09/01/23 Three Impairment Decreased hip mobility limiting PF and core strength Impairment Decreased hip mobility: IR 10 L, 20 R; ER 90 L, 60 R). Short Term Goal (STG) Pt will be independent with a HEP of hip stretches (mainly sujit IR's and R ER), and hip ext, AD strengthening exercises. 08/04/23: HEP: hip AD stretch (SL & Sujit) and hip IR (knee to opp shoulder, lat hip) and ER (fig4). 09/01/23: Pt needing review of HEP. 10/06/23: HEP: 2 handout for Diaphragmatic Breathing in sit & in supine; and standing Iliopsoas stretch. Re-issued handout for hip stretches ( Piriformis, lateral hiop and Fig 4). STG Duration 6 wks-11/17/23 progressed Mcfp Goal (LTG) Pt will demonstrate improved sujit hip IR and R hip ER PROM, and improve hip ext and AD strength by 1/2 grade or more. LTG Duration 12 wks-12/29/23 Two Impairment Poor core stability limiting exercise tolerance. Short Term Goal (STG) Pt will be educated in how to exercise safely by tracking HR and performing a TA while normal breathing. STG Duration 3 wks-10/27/23 Mcfp Goal (LTG) Improve core stability with pt able to maintain a TA contraction with exercise to be able to functionally exercise (to help with wgt loss). LTG Duration 12 wks-12/29/23 One Impairment Pt lacks an independent self care HEP. Short Term Goal (STG) Pt educated in proper transfers to lessen core abdominal pressure. STG Duration 2 wks-10/20/23 Account Relationship Manager Goal (LTG) Pt will be independent in a self care HEP for PF strengthening and be able to coordinate pulling up/in with PF (anter/carton filler) and abdomen with a PF contraction. 08/04/23: Re-Issued HEP of Kegel ex's w/focus on long holds. LTG Duration 12 wks-12/29/23 progressed 08/04/23 Assessment Summary Assessment 68 yo female referred for JANNETTE, core stab; complaints of anal /abdominal pain with & prior- to BM's, respectively. Today pt attends reporting improvement in bowel function, noting being able to have BM' s daily if using probiotics and having improved ability to have BM's w/o pushing. She appears to push w/BM when in a hurry. Pt improved with deep breathing ability, although needed training and review w/ handouts issued. The pt has had been able to attend therapy only 6 times since starting therapy on 07/14/23 due to health situations of spouse; therefore the pt would benefit from continued skilled physical therapy to continue to work towards achieving her above stated goals. Physical Therapy Plan Frequency and Duration Frequency of Treatment Every Other Week Duration of treatment (weeks) 12 Plan of Care Start Date 10/06/23 Plan of Care End Date 12/29/23 Next Visit Focus/Plan Next Note Type Treatment Note Next Visit Plan Next: PUF scoring and assess prog towards goals. Review hip Iliopsoas stretch & assess for anal/abdominal pain with & prior-to BM's. Add to HEP: hip AD strengthening. Neuro re-ed. Neuro-scott: proper Kegel without use of substitute muscles, (STG 1) proper transfers to lessen core abdominal pressure, breathing with transfers and body mechanics (functional activities). Proper drawing up of PF with contraction (not bulging at abdomen, PF, anus) . Pt education resting HR and exercise parameters with pt education in self HR assessment. (STG 2) exercise safely by tracking HR and performing a TA while normal breathing. ?PF assessment with Vemg if pt agreeable. Strengthening: Core (TA, prevent doming), hip AD & extensors. ROM: extenson (? hip AD), LB flex stretch. Manual: Ilipsoas release, hip mobs, bladder, intestines, & as needed manual therapy to L abdomen, to unkink colon. POC: JANNETTE rehab, core/TA stab, improve hip mobility.
--- NOTE | 2023-10-06 12:27 | PT.OPPOC ---
Physical, Occupational & Speech Therapy At [facility] Current Diagnoses Stiffness of unspecified hip, not elsewhere classified (10/06/23) Muscle weakness (generalized) (10/06/23) Stress incontinence (female) (male) (10/06/23) Pelvic and perineal pain (10/06/23) Visit Care Team Role Provider Type Margaret Herron MD Primary Care Provider Physician Specialty: Family Practice ROBOTIC WELD TECHNICIAN Address: [address] [place] [address], [id number] Fax: Email: [email or web address] Rachna Rollins MD Attending Provider Physician Family Provider Referring Provider Specialty: Internal Medicine Address: [place], [address] Email: Plan Of Care PT-OP-T Assessment and Plan Start: 07/06/23 17:49 Freq: Status: Active Protocol: Document 10/06/23 11:21 LRN (Rec: 10/06/23 12:14 LRN [id number]) Physical Therapy Assessment Goals Four Impairment Urinary incontinence with a strong cough, sneeze. Short Term Goal (STG) Improve PF strength per Long Hold 10 sec's prior to fatigue and Quick Flicks 7-8 reps in 10 secs. STG Duration 6 wks-11/17/23 Market Research Worker Goal (LTG) Pt will have decreased complaints of urinary stress incontinent symptoms and will be able to maintain continence in the presence of a strong cough, sneeze and with laughing. 09/01/23: 90% of time if contracts before coughing, sneezin or laughing, otherwise still leaking. LTG Duration 12 wks-12/29/23 progressing 09/01/23 Three Impairment Decreased hip mobility limiting PF and core strength Impairment Decreased hip mobility: IR 10 L, 20 R; ER 90 L, 60 R). Short Term Goal (STG) Pt will be independent with a HEP of hip stretches (mainly sujit IR's and R ER), and hip ext, AD strengthening exercises. 08/04/23: HEP: hip AD stretch (SL & Sujit) and hip IR (knee to opp shoulder, lat hip) and ER (fig4). 09/01/23: Pt needing review of HEP. 10/06/23: HEP: 2 handout for Diaphragmatic Breathing in sit & in supine; and standing Iliopsoas stretch. Re-issued handout for hip stretches ( Piriformis, lateral hiop and Fig 4). STG Duration 6 wks-11/17/23 progressed Market Research Worker Goal (LTG) Pt will demonstrate improved sujit hip IR and R hip ER PROM, and improve hip ext and AD strength by 1/2 grade or more. LTG Duration 12 wks-12/29/23 Two Impairment Poor core stability limiting exercise tolerance. Short Term Goal (STG) Pt will be educated in how to exercise safely by tracking HR and performing a TA while normal breathing. STG Duration 3 wks-10/27/23 Market Research Worker Goal (LTG) Improve core stability with pt able to maintain a TA contraction with exercise to be able to functionally exercise (to help with wgt loss). LTG Duration 12 wks-12/29/23 One Impairment Pt lacks an independent self care HEP. Short Term Goal (STG) Pt educated in proper transfers to lessen core abdominal pressure. STG Duration 2 wks-10/20/23 Longterm Goal (LTG) Pt will be independent in a self care HEP for PF strengthening and be able to coordinate pulling up/in with PF (anter/sand slinger operator) and abdomen with a PF contraction. 08/04/23: Re-Issued HEP of Kegel ex's w/focus on long holds. LTG Duration 12 wks-12/29/23 progressed 08/04/23 Assessment Summary Assessment 68 yo female referred for JANNETTE, core stab; complaints of anal /abdominal pain with & prior- to BM's, respectively. Today pt attends reporting improvement in bowel function, noting being able to have BM' s daily if using probiotics and having improved ability to have BM's w/o pushing. She appears to push w/BM when in a hurry. Pt improved with deep breathing ability, although needed training and review w/ handouts issued. The pt has had been able to attend therapy only 6 times since starting therapy on 07/14/23 due to health situations of spouse; therefore the pt would benefit from continued skilled physical therapy to continue to work towards achieving her above stated goals. Physical Therapy Plan Frequency and Duration Frequency of Treatment Every Other Week Duration of treatment (weeks) 12 Plan of Care Start Date 10/06/23 Plan of Care End Date 12/29/23 Next Visit Focus/Plan Next Note Type Treatment Note Next Visit Plan Next: PUF scoring and assess prog towards goals. Review hip Iliopsoas stretch & assess for anal/abdominal pain with & prior-to BM's. Add to HEP: hip AD strengthening. Neuro re-ed. Neuro-scott: proper Kegel without use of substitute muscles, (STG 1) proper transfers to lessen core abdominal pressure, breathing with transfers and body mechanics (functional activities). Proper drawing up of PF with contraction (not bulging at abdomen, PF, anus) . Pt education resting HR and exercise parameters with pt education in self HR assessment. (STG 2) exercise safely by tracking HR and performing a TA while normal breathing. ?PF assessment with Vemg if pt agreeable. Strengthening: Core (TA, prevent doming), hip AD & extensors. ROM: extenson (? hip AD), LB flex stretch. Manual: Ilipsoas release, hip mobs, bladder, intestines, & as needed manual therapy to L abdomen, to unkink colon. POC: JANNETTE rehab, core/TA stab, improve hip mobility. Plan of Care Dates Plan of Care Start Date 10/06/23 Plan of Care End Date 12/29/23 Electronically Signed by: Mary Craig, PT 10/06/23 3833 If you are in agreement with this Plan of Care, please return a signed and dated copy. I have reviewed this Plan of Care and certify that the skilled therapy services above are required to meet the patient?s needs. Physician Signature Date Printed Name and Credentials Clinical Instructor Signature Printed Name and Credentials
--- NOTE | 2023-10-20 16:08 | PT.OTN ---
Current Diagnoses Stiffness of unspecified hip, not elsewhere classified (10/20/23) Muscle weakness (generalized) (10/20/23) Stress incontinence (female) (male) (10/20/23) Pelvic and perineal pain (10/20/23) Physical Therapy Treatment Note PT-OP-A Visit Information Start: 07/06/23 17:49 Freq: Status: Active Protocol: Document 10/20/23 13:50 LRN (Rec: 10/20/23 16:05 LRN [id number]) Out-Patient Physical Therapy Visit Information Visit Information Visit Type Treatment Note Visit Start Time 13:50 Visit Stop Time 14:33 Visit Number 7 Evaluation Information Evaluation Date 07/14/23 Precautions Precautions BPPV if bends over head down, Hyste followed by Bladder sling surgery in 2004, intestinal blockage surgery (8 -10 inches of upper small intenstine bowels removed) 2019, and facial surgery 2007, history of hemorrhoids, heart condition of PVCs. PT-OP-B Current Condition Start: 07/06/23 17:49 Freq: Status: Active Protocol: Document 07/14/23 13:44 LRN (Rec: 07/14/23 16:51 LRN [id number]) Current Condition History of Current Condition Onset Date 05/05/2020 Current Complaints PF weakness, hemorrhoid pain with BM, stress incontinence. History of Current Condition Pt states her main reason for PT is because of stress incontinence (started 40 yrs ago) and hemorrhoid pain since bowel surgery for bowel blockage 3 yrs ago. She reports an emergency surgery ( 05/05/2020) to remove 8-10 inches of upper small intenstine bowels. She has had a hyste in 2004 with complications due to scar tissue, then had a bladder sling put in later in 2004 (in [facility]) with resolution of urinary leakage. Now having a couple drops of urinary leakage with cough, sneeze and strong urge. Had 4 sessions with PF PT in [place] ([facility] in [place], [place]) to help build PF ms tone and worked on identifying core ms and hemorrhoid and sphincter muscles and and how to contract them. States she was just learning when she had to leave and was given a few exercises. 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 Prior Treatments and Tests PF physical therapy in [facility]. Developmental History Developmental History 60 yrs of playing violin causing neck pain and has a family history of cervical spinal stenosis. Treatment Goals Patient/Caregiver Goals Pt goals: Deep Breath properly, functional exercise to lose wgt and learn how to exercise safely, eliminate urinary incontinence, and reduce pain with BM's. Personal Factors Other Personal Factors That May Effect Pt reported: Therapy/Recovery Heart condition of PVCs, was told by shop tech to work up to exercise, Bowel surgery for bowel blockage 3 yrs ago, Hyste followed by Bladder sling surgery in 2004, History of hemorrhoids. PT-OP-C Subjective Start: 07/06/23 17:49 Freq: Status: Active Protocol: Document 10/20/23 13:50 LRN (Rec: 10/20/23 16:05 LRN [id number]) OP-PT Subjective Patient Comments Patient Comments Bad day today (hadn't had BM for a day), having bathroom issues with constipation and had to push it out, so her hemorrhoids are pushed out. Going through quelation to get rid of lead in her system. Has been stressed and now her mother is gone. Urinary incontinence has been minimal. 2x strong urge and leaked some running to bathroom, dion had coffee once and was out in garden the 2nd time. PT-OP-I Pelvic Floor Start: 07/06/23 17:49 Freq: Status: Active Protocol: Document 07/14/23 13:44 LRN (Rec: 07/14/23 16:51 LRN [id number]) Pelvic Floor Assessment Urine Pelvic Floor Surgery No Leakage Size Small Leakage Cause Cough,Sneeze,Urge Other Leakage Causes Elliptical, jogs in place and jumping jacks, Sr ex's with weights and walks. NO leakage if urinates before ex and jogs gentle. Bowel Bowel Surgery Yes Bowel Symptoms Constipation,Pain Other Bowel Symptoms Hemorrhoids. Bowel Movement Frequency Daily [place] Stool Chart Type 1-7 4 Pelvic Clock Pelvic Clock Other Tender at 5 O'Clock Prolapse Urethrocele Grade 2 Prolapse Comments Bulge at anus with cough. Perineal Descent Resting Present Bearing Absent Contraction Ability Voluntary Contraction Weak Voluntary Relaxation Moderate Manual Muscle Testing Left 2 Manual Muscle Testing Right 2 Manual Muscle Testing Anterior 1 Manual Muscle Testing Posterior 3 Muscle Endurance (Seconds) 10 Number of Quick Contractions In 10 4 Seconds Comments Pelvic Floor Comments Dry tissues externally. Lacks clitoral nod, has anal wink. PT-OP-J Posture/Palpation/Skin Start: 07/06/23 17:49 Freq: Status: Active Protocol: Document 07/14/23 13:44 LRN (Rec: 07/14/23 16:51 LRN [id number]) Posture Evaluation Position Standing Head/C-Spine Posture Forward Head L-Spine Posture Increased Lordosis Pelvis Posture Anteriorly Tilted Knee Posture (L) Genu Valgus,(R) Genu Valgus Comments Posture Comments Dowagers hump. R UT tightness . PT-OP-K Range of Motion Start: 07/06/23 17:49 Freq: Status: Active Protocol: Document 07/14/23 13:44 LRN (Rec: 07/14/23 16:51 LRN [id number]) Lumbar Spine Range of Motion Lumbar Spine Active Degrees Testing Position Standing Flexion 95 Extension 20 Rotation Left 45 Rotation Right 30 Lateral Flexion Left 27 Lateral Flexion Right 20 Comments 95/55 20/20 Hip Goniometric Range of Motion Hip Right Passive Testing Position Supine Internal Rotation 20 External Rotation 60 Left Passive Testing Position Supine Internal Rotation 10 External Rotation 90 Comments Resting position, hip starts at 30 deg's ER. PT-OP-M Strength Start: 07/06/23 17:49 Freq: Status: Active Protocol: Document 07/14/23 13:44 LRN (Rec: 07/14/23 16:51 LRN [id number]) Trunk Strength Trunk Manual Muscle Testing Core Stabilization Fair core stability during MMT of LE's. Most notable decrease in rotational stability. Hip Strength Hip Manual Muscle Testing Right Extension (S1) 3 Fair Adduction 4 Good Comments Strength is 5/5 except as indicated above. Left Extension (S1) 3+ Fair+ Adduction 3+ Fair+ Comments Strength is 5/5 except as indicated above. PT-OP-Q Treatments Start: 07/06/23 17:49 Freq: Status: Active Protocol: Document 10/20/23 13:50 LRN (Rec: 10/20/23 16:05 LRN [id number]) Therapeutic Exercises Supine Exercises Lateral Hip stretch Supine Exercise Name Semi-reclined: Lateral Hip stretch Side bilateral Reps/Minutes 4' Comments tactile cues for foot positioning on opp knee /c knee direct into adduction Piriformis stretch Side bilateral Reps/Minutes 30 sec hold x2 Comments time spent on foot on top opp knee Sitting Exercises SL Hip AD stretch Side bilateral Reps/Minutes 3' Comments with breath Standing Exercises Iliopsoas stretch Side bilateral Reps/Minutes 3' Comments with breath Manual Therapy Treatment Soft Tissue Mobilization iliopsoas Body Location Sujit Mobilization Type Sustained Pressure Intensity/Depth Moderate Body Position Supine Comments sustained hold: -1 hand positioning: L 3-4 opp transverse process posteriorly with medial pull -2nd hand distal attachment at lesser trochanter with sustained pressure lateral and superior approximating attachment 30 SH each side- good release on L>R Self-Care/Home Management Treatment Education Other Education Reviewed pt's HEP at her request and DC'd supine hip flexor stretch with pt doing it in standing. PT-OP-T Assessment and Plan Start: 07/06/23 17:49 Freq: Status: Active Protocol: Document 10/20/23 13:50 LRN (Rec: 10/20/23 16:05 LRN [id number]) Physical Therapy Assessment Goals Four Impairment Urinary incontinence with a strong cough, sneeze. Short Term Goal (STG) Improve PF strength per Long Hold 10 sec's prior to fatigue and Quick Flicks 7-8 reps in 10 secs. STG Duration 6 wks-11/17/23 Dry Cleaner Presser Goal (LTG) Pt will have decreased complaints of urinary stress incontinent symptoms and will be able to maintain continence in the presence of a strong cough, sneeze and with laughing. 09/01/23: 90% of time if contracts before coughing, sneezin or laughing, otherwise still leaking. LTG Duration 12 wks-12/29/23 progressing 09/01/23 Three Impairment Decreased hip mobility limiting PF and core strength Impairment Decreased hip mobility: IR 10 L, 20 R; ER 90 L, 60 R). Short Term Goal (STG) Pt will be independent with a HEP of hip stretches (mainly sujit IR's and R ER), and hip ext, AD strengthening exercises. 08/04/23: HEP: hip AD stretch (SL & Sujit) and hip IR (knee to opp shoulder, lat hip) and ER (fig4). 09/01/23: Pt needing review of HEP. 10/06/23: HEP: 2 handout for Diaphragmatic Breathing in sit & in supine; and standing Iliopsoas stretch. Re-issued handout for hip stretches ( Piriformis, lateral hiop and Fig 4). STG Duration 6 wks-11/17/23 progressed Dry Cleaner Presser Goal (LTG) Pt will demonstrate improved sujit hip IR and R hip ER PROM, and improve hip ext and AD strength by 1/2 grade or more. LTG Duration 12 wks-12/29/23 Two Impairment Poor core stability limiting exercise tolerance. Short Term Goal (STG) Pt will be educated in how to exercise safely by tracking HR and performing a TA while normal breathing. STG Duration 3 wks-10/27/23 Fci Goal (LTG) Improve core stability with pt able to maintain a TA contraction with exercise to be able to functionally exercise (to help with wgt loss). LTG Duration 12 wks-12/29/23 One Impairment Pt lacks an independent self care HEP. Short Term Goal (STG) Pt educated in proper transfers to lessen core abdominal pressure. STG Duration 2 wks-10/20/23 Fci Goal (LTG) Pt will be independent in a self care HEP for PF strengthening and be able to coordinate pulling up/in with PF (anter/railroad yard worker) and abdomen with a PF contraction. 08/04/23: Re-Issued HEP of Kegel ex's w/focus on long holds. LTG Duration 12 wks-12/29/23 progressed 08/04/23 Assessment Summary Assessment 68 yo female referred for JANNETTE, core stab; complaints of anal /abdominal pain with & prior- to BM's, respectively. Pt responded well to manual iliopsoas release L>R, cued for continued breath to support release. Continued cues for proper form during ther ex. Pt having to push with BM, probably due to stress with family visiting and her not able to relax to have BM. Initially pt had pain at PF clock 5 and she showed poor coordination of Kegel with pushing out instead of drawing up and in. Monitoring is needed. Physical Therapy Plan Frequency and Duration Frequency of Treatment Every Other Week Duration of treatment (weeks) 12 Plan of Care Start Date 10/06/23 Plan of Care End Date 12/29/23 Next Visit Focus/Plan Next Note Type Treatment Note Next Visit Plan Next: PUF scoring and assess prog towards goals; Assess if pt is drawing PF up and in rather than bulging out before deciding on doing VEMG biofeedback assessment & if pt agreeable. Review hip Iliopsoas stretch & assess for anal/abdominal pain with & prior to BM's. Add to HEP: hip AD strengthening. Neuro-scott: -proper Kegel without use of substitute muscles, (STG 1), -proper transfers to lessen core abdominal pressure, -breathing with transfers and body mechanics (functional activities). Proper Kegel, drawing up of PF with contraction (not bulging at abdomen, PF, anus). (STG 2) exercise safely by tracking HR and performing a TA while normal breathing. Pt education resting HR and exercise parameters with pt education in self HR assessment. Strengthening: Core (TA, prevent doming), hip AD & extensors. ROM: extenson (? hip AD), LB flex stretch. Manual: cont Ilipsoas release ; hip mobs, bladder, intestines, & as needed manual therapy to L abdomen, to unkink colon. POC: JANNETTE rehab, core/TA stab, improve hip mobility.
--- NOTE | 2023-12-15 17:24 | PT.OTN ---
Current Diagnoses Stiffness of unspecified hip, not elsewhere classified (12/15/23) Muscle weakness (generalized) (12/15/23) Stress incontinence (female) (male) (12/15/23) Pelvic and perineal pain (12/15/23) Physical Therapy Treatment Note PT-OP-A Visit Information Start: 07/06/23 17:49 Freq: Status: Active Protocol: Document 12/15/23 10:14 LRN (Rec: 12/15/23 11:00 LRN [id number]) Out-Patient Physical Therapy Visit Information Visit Information Visit Type Treatment Note Visit Start Time 10:14 Visit Stop Time 10:52 Visit Number 8 Evaluation Information Evaluation Date 07/14/23 Precautions Precautions BPPV if bends over head down, Hyste followed by Bladder sling surgery in 2004, intestinal blockage surgery (8 -10 inches of upper small intenstine bowels removed) 2019, and facial surgery 2007, history of hemorrhoids, heart condition of PVCs. PT-OP-B Current Condition Start: 07/06/23 17:49 Freq: Status: Active Protocol: Document 07/14/23 13:44 LRN (Rec: 07/14/23 16:51 LRN [id number]) Current Condition History of Current Condition Onset Date 05/05/2020 Current Complaints PF weakness, hemorrhoid pain with BM, stress incontinence. History of Current Condition Pt states her main reason for PT is because of stress incontinence (started 40 yrs ago) and hemorrhoid pain since bowel surgery for bowel blockage 3 yrs ago. She reports an emergency surgery ( 05/05/2020) to remove 8-10 inches of upper small intenstine bowels. She has had a hyste in 2004 with complications due to scar tissue, then had a bladder sling put in later in 2004 (in [facility]) with resolution of urinary leakage. Now having a couple drops of urinary leakage with cough, sneeze and strong urge. Had 4 sessions with PF PT in [place] ([facility] in [place], [place]) to help build PF ms tone and worked on identifying core ms and hemorrhoid and sphincter muscles and and how to contract them. States she was just learning when she had to leave and was given a few exercises. 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 Prior Treatments and Tests PF physical therapy in [facility]. Developmental History Developmental History 60 yrs of playing violin causing neck pain and has a family history of cervical spinal stenosis. Treatment Goals Patient/Caregiver Goals Pt goals: Deep Breath properly, functional exercise to lose wgt and learn how to exercise safely, eliminate urinary incontinence, and reduce pain with BM's. Personal Factors Other Personal Factors That May Effect Pt reported: Therapy/Recovery Heart condition of PVCs, was told by maintenance groundskeeper to work up to exercise, Bowel surgery for bowel blockage 3 yrs ago, Hyste followed by Bladder sling surgery in 2004, History of hemorrhoids. PT-OP-C Subjective Start: 07/06/23 17:49 Freq: Status: Active Protocol: Document 12/15/23 10:14 LRN (Rec: 12/15/23 11:00 LRN [id number]) OP-PT Subjective Patient Comments Patient Comments Inconsistent with ex while gone on vacation to [place]. Once pushed with BM and caused bleeding. Has found probiotics and magnesium helpful for BMs. Since home couple times of constipation. Plans to increase magnesium. Has appt w/GI specialist w/in next couple weeks. Had one JANNETTE incident after drinking coffee and waiting too long to void. Patient Questionnaires Pelvic Floor Distress Inventory Questionnaire (PFDI- SF20) Pelvic Floor Score 26.04 Pelvic Pain and Urgency/Frequency Patient Symptom Scale Pelvic Pain Score 3 PT-OP-I Pelvic Floor Start: 07/06/23 17:49 Freq: Status: Active Protocol: Document 07/14/23 13:44 LRN (Rec: 07/14/23 16:51 LRN [id number]) Pelvic Floor Assessment Urine Pelvic Floor Surgery No Leakage Size Small Leakage Cause Cough,Sneeze,Urge Other Leakage Causes Elliptical, jogs in place and jumping jacks, Sr ex's with weights and walks. NO leakage if urinates before ex and jogs gentle. Bowel Bowel Surgery Yes Bowel Symptoms Constipation,Pain Other Bowel Symptoms Hemorrhoids. Bowel Movement Frequency Daily Lares Stool Chart Type 1-7 4 Pelvic Clock Pelvic Clock Other Tender at 5 O'Clock Prolapse Urethrocele Grade 2 Prolapse Comments Bulge at anus with cough. Perineal Descent Resting Present Bearing Absent Contraction Ability Voluntary Contraction Weak Voluntary Relaxation Moderate Manual Muscle Testing Left 2 Manual Muscle Testing Right 2 Manual Muscle Testing Anterior 1 Manual Muscle Testing Posterior 3 Muscle Endurance (Seconds) 10 Number of Quick Contractions In 10 4 Seconds Comments Pelvic Floor Comments Dry tissues externally. Lacks clitoral nod, has anal wink. PT-OP-J Posture/Palpation/Skin Start: 07/06/23 17:49 Freq: Status: Active Protocol: Document 07/14/23 13:44 LRN (Rec: 07/14/23 16:51 LRN [id number]) Posture Evaluation Position Standing Head/C-Spine Posture Forward Head L-Spine Posture Increased Lordosis Pelvis Posture Anteriorly Tilted Knee Posture (L) Genu Valgus,(R) Genu Valgus Comments Posture Comments Dowagers hump. R UT tightness . PT-OP-K Range of Motion Start: 07/06/23 17:49 Freq: Status: Active Protocol: Document 07/14/23 13:44 LRN (Rec: 07/14/23 16:51 LRN [id number]) Lumbar Spine Range of Motion Lumbar Spine Active Degrees Testing Position Standing Flexion 95 Extension 20 Rotation Left 45 Rotation Right 30 Lateral Flexion Left 27 Lateral Flexion Right 20 Comments 95/55 20/20 Hip Goniometric Range of Motion Hip Right Passive Testing Position Supine Internal Rotation 20 External Rotation 60 Left Passive Testing Position Supine Internal Rotation 10 External Rotation 90 Comments Resting position, hip starts at 30 deg's ER. PT-OP-M Strength Start: 07/06/23 17:49 Freq: Status: Active Protocol: Document 07/14/23 13:44 LRN (Rec: 07/14/23 16:51 LRN [id number]) Trunk Strength Trunk Manual Muscle Testing Core Stabilization Fair core stability during MMT of LE's. Most notable decrease in rotational stability. Hip Strength Hip Manual Muscle Testing Right Extension (S1) 3 Fair Adduction 4 Good Comments Strength is 5/5 except as indicated above. Left Extension (S1) 3+ Fair+ Adduction 3+ Fair+ Comments Strength is 5/5 except as indicated above. PT-OP-Q Treatments Start: 07/06/23 17:49 Freq: Status: Active Protocol: Document 12/15/23 10:14 LRN (Rec: 12/15/23 11:00 LRN [id number]) Therapeutic Exercises Supine Exercises Lateral Hip stretch Supine Exercise Name Semi-reclined: Lateral Hip stretch Side bilateral Reps/Minutes 4' Comments tactile cues for foot positioning on opp knee /c knee direct into adduction Piriformis stretch Supine Exercise Name Semi-recline: Knee to opp shoulder & holding ankle. Side bilateral Reps/Minutes 4' Deep Breathing Supine Exercise Name Semi-reclined Deep Breathing Reps/Minutes 3' Sitting Exercises SL Hip AD stretch Side bilateral Reps/Minutes 3' Comments with breath Standing Exercises Gastroc stretch Standing Exercise Name Done in combo with Iliopsoas stretch Side bilateral Reps/Minutes 2' Comments Cuing for foot placement. Iliopsoas stretch Side bilateral Reps/Minutes 4' Comments with breath Self-Care/Home Management Treatment Education Other Education Pt educated in self HR assessment at wrist bilaterally for exercise management. Discussed and reviewed exercise tolerance level, issued and recommended on CIRO Perceived exertion scale, level of ex to start 10-11 and might build up to 11-14, but will be determined by her STRESS TEST she has scheduled. Verbally reviewed pt's participation with her HEP since last appt, and discussed pt's other medical appointments of GI specialist and Treadmill stress test planned, and requested pt obtain guidance for her exercise presciption afterward . Activities Self-Care/Home Management Activities Issued CIRO Perceived Exertion Scale with recommendations for perceived exertion for exercise (solid line values of around 75% max HR, progressing towards dotted line values). PT-OP-T Assessment and Plan Start: 07/06/23 17:49 Freq: Status: Active Protocol: Document 12/15/23 10:14 LRN (Rec: 12/15/23 11:00 LRN [id number]) Physical Therapy Assessment Goals Five Impairment PF abdominal pain prior to need for BM and anal pain (3/ 10) with BM. Short Term Goal (STG) Pt educated in proper deep breathing for PF relaxation and Bowel massage/bowel care. 08/04/23: Deep Breathing training and reviewed Bowel massage and discussed bowel care. STG Duration 1 wk-07/21/23 (08/04/23: MET GOAL) [facility] Goal (LTG) Pt will have reduction or eliimination of anal and lower abdominal pain with BM's. 08/15/23: No abdominal or anal pain with BM. Uses stool for her squatty potty. LTG Duration 12 wks-10/06/23 (08/15/23: MET GOAL) Four Impairment Urinary incontinence with a strong cough, sneeze. Short Term Goal (STG) Improve PF strength per Long Hold 10 sec's prior to fatigue and Quick Flicks 7-8 reps in 10 secs. STG Duration 6 wks-11/17/23 [facility] Goal (LTG) Pt will have decreased complaints of urinary stress incontinent symptoms and will be able to maintain continence in the presence of a strong cough, sneeze and with laughing. 09/01/23: 90% of time if contracts before coughing, sneezing or laughing, otherwise still leaking. 12/15/23: Sneezed once, forgot to contract PF; therefore had urinary leakage. LTG Duration 12 wks-12/29/23 progressing 12/15/23 Three Impairment Decreased hip mobility limiting PF and core strength Impairment Decreased hip mobility: IR 10 L, 20 R; ER 90 L, 60 R). Short Term Goal (STG) Pt will be independent with a HEP of hip stretches (mainly sujit IR's and R ER), and hip ext, AD strengthening exercises. 08/04/23: HEP: hip AD stretch (SL & Sujit) and hip IR (knee to opp shoulder, lat hip) and ER (fig4). 09/01/23: Pt needing review of HEP. 10/06/23: HEP: 2 handout for Diaphragmatic Breathing in sit & in supine; and standing Iliopsoas stretch. Re-issued handout for hip stretches ( Piriformis, lateral hiop and Fig 4). STG Duration 6 wks-11/17/23 (12/15/23: MET GOAL) [facility] Goal (LTG) Pt will demonstrate improved sujit hip IR and R hip ER PROM, and improve hip ext and AD strength by 1/2 grade or more. 12/15/23: Has not been able to stretch while on vacation for past 2.5 wks. LTG Duration 12 wks-12/29/23 12/15/23: hold assessment until next visit Two Impairment Poor core stability limiting exercise tolerance. Short Term Goal (STG) Pt will be educated in how to exercise safely by tracking HR and performing a TA while normal breathing. 12/15/23: Pt educated and demonstrated ability to track her HR at the wrist. Resting HR on L wrist was 76. STG Duration 3 wks-10/27/23 progressed 05/28 (?TA w/breathing). [facility] Goal (LTG) Improve core stability with pt able to maintain a TA contraction with exercise to be able to functionally exercise (to help with wgt loss). LTG Duration 12 wks-12/29/23 One Impairment Pt lacks an independent self care HEP. Short Term Goal (STG) Pt educated in proper transfers to lessen core abdominal pressure. STG Duration 2 wks-10/20/23 [facility] Goal (LTG) Pt will be independent in a self care HEP for PF strengthening and be able to coordinate pulling up/in with PF (anter/neurology physician) and abdomen with a PF contraction. 08/04/23: Re-Issued HEP of Kegel ex's w/focus on long holds. LTG Duration 12 wks-12/29/23 progressed 08/04/23 Assessment Summary Assessment 68 yo female referred for JANNETTE, core stab; complaints of anal /abdominal pain with & prior- to BM's, respectively. Pt had one episode of hemorroid bleeding with BM on vacation; therefore posterior PF tightness may persist. PUF score worse on return from vacation (3 vs initial of 1); PDF20 score of PF assessment needed for PF pain and if pain at 5 of PF clock persists . Pt better able to maintain TA tight with breath after training, need to assess PF movement if core tight w/ breathing. Physical Therapy Plan Frequency and Duration Frequency of Treatment Every Other Week Duration of treatment (weeks) 12 Plan of Care Start Date 10/06/23 Plan of Care End Date 12/29/23 Next Visit Focus/Plan Next Note Type Treatment Note Next Visit Plan Next: PN for POC update. Assess: progress towards goals, PF for pain/tight & PF strength (quick/long hold) & hip ROM/strength. Assess anal /abdominal pain with & prior to BM's. Assess if pt is drawing PF up/in rather than bulging out before deciding on doing VEMG biofeedback assessment & if pt agreeable. Add to HEP: hip AD strengthening. Neuro-scott: -proper Kegel without use of substitute muscles, -proper transfers to lessen core abdominal pressure, -breathing with transfers and body mechanics (functional activities). Pt education resting HR and exercise parameters with pt education in self HR assessment. Strengthening: Core (TA, prevent doming), hip AD & extensors. ROM: extenson (? hip AD), LB flex stretch. Manual: cont Ilipsoas release ; hip mobs, bladder, intestines, & as needed manual therapy to L abdomen, to unkink colon. POC: JANNETTE rehab, core/TA stab, improve hip mobility.
--- NOTE | 2023-12-21 17:18 | PT.OTN ---
Current Diagnoses Stiffness of unspecified hip, not elsewhere classified (12/21/23) Muscle weakness (generalized) (12/21/23) Stress incontinence (female) (male) (12/21/23) Pelvic and perineal pain (12/21/23) Physical Therapy Treatment Note PT-OP-A Visit Information Start: 07/06/23 17:49 Freq: Status: Active Protocol: Document 12/21/23 09:03 LRN (Rec: 12/21/23 09:47 LRN [id number]) Out-Patient Physical Therapy Visit Information Visit Information Visit Type Progress Note Visit Start Time 09:03 Visit Stop Time 09:43 Visit Number 9 Evaluation Information Evaluation Date 07/14/23 Precautions Precautions BPPV if bends over head down, Hyste followed by Bladder sling surgery in 2004, intestinal blockage surgery (8 -10 inches of upper small intenstine bowels removed) 2019, and facial surgery 2007, history of hemorrhoids, heart condition of PVCs. PT-OP-B Current Condition Start: 07/06/23 17:49 Freq: Status: Active Protocol: Document 07/14/23 13:44 LRN (Rec: 07/14/23 16:51 LRN [id number]) Current Condition History of Current Condition Onset Date 05/05/2020 Current Complaints PF weakness, hemorrhoid pain with BM, stress incontinence. History of Current Condition Pt states her main reason for PT is because of stress incontinence (started 40 yrs ago) and hemorrhoid pain since bowel surgery for bowel blockage 3 yrs ago. She reports an emergency surgery ( 05/05/2020) to remove 8-10 inches of upper small intenstine bowels. She has had a hyste in 2004 with complications due to scar tissue, then had a bladder sling put in later in 2004 (in [facility]) with resolution of urinary leakage. Now having a couple drops of urinary leakage with cough, sneeze and strong urge. Had 4 sessions with PF PT in [place] ([facility] in [place], [place]) to help build PF ms tone and worked on identifying core ms and hemorrhoid and sphincter muscles and and how to contract them. States she was just learning when she had to leave and was given a few exercises. 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 Prior Treatments and Tests PF physical therapy in [facility]. Developmental History Developmental History 58 yrs of playing violin causing neck pain and has a family history of cervical spinal stenosis. Treatment Goals Patient/Caregiver Goals Pt goals: Deep Breath properly, functional exercise to lose wgt and learn how to exercise safely, eliminate urinary incontinence, and reduce pain with BM's. Personal Factors Other Personal Factors That May Effect Pt reported: Therapy/Recovery Heart condition of PVCs, was told by staff interpreter to work up to exercise, Bowel surgery for bowel blockage 3 yrs ago, Hyste followed by Bladder sling surgery in 2004, History of hemorrhoids. PT-OP-C Subjective Start: 07/06/23 17:49 Freq: Status: Active Protocol: Document 12/21/23 09:03 LRN (Rec: 12/21/23 09:47 LRN [id number]) OP-PT Subjective Patient Comments Patient Comments States after session she is seeing Dr. Sánchez, GI specialist to get a colonoscopy. States the L hip has deep discomfort. Tomorrow she has stress test. States she has psoriasis of her PF, itchy. No uterus or cervix. Patient Questionnaires Pelvic Pain and Urgency/Frequency Patient Symptom Scale Pelvic Pain Score 4 PT-OP-I Pelvic Floor Start: 07/06/23 17:49 Freq: Status: Active Protocol: Document 12/21/23 09:03 LRN (Rec: 12/21/23 09:47 LRN [id number]) Pelvic Floor Assessment Pelvic Clock Pelvic Clock Other Pelvic Clock 6-8 O'Clock has small nodules in soft tissue of internal vaginal canal near entry. 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 PT-OP-J Posture/Palpation/Skin Start: 07/06/23 17:49 Freq: Status: Active Protocol: Document 07/14/23 13:44 LRN (Rec: 07/14/23 16:51 LRN [id number]) Posture Evaluation Position Standing Head/C-Spine Posture Forward Head L-Spine Posture Increased Lordosis Pelvis Posture Anteriorly Tilted Knee Posture (L) Genu Valgus,(R) Genu Valgus Comments Posture Comments Dowagers hump. R UT tightness . PT-OP-K Range of Motion Start: 07/06/23 17:49 Freq: Status: Active Protocol: Document 12/21/23 09:03 LRN (Rec: 12/21/23 09:47 LRN [id number]) Hip Goniometric Range of Motion Hip Right Passive Testing Position Supine Internal Rotation 30 External Rotation 80 Left Passive Testing Position Supine Internal Rotation 20 External Rotation 75 PT-OP-M Strength Start: 07/06/23 17:49 Freq: Status: Active Protocol: Document 07/14/23 13:44 LRN (Rec: 07/14/23 16:51 LRN [id number]) Trunk Strength Trunk Manual Muscle Testing Core Stabilization Fair core stability during MMT of LE's. Most notable decrease in rotational stability. Hip Strength Hip Manual Muscle Testing Right Extension (S1) 3 Fair Adduction 4 Good Comments Strength is 5/5 except as indicated above. Left Extension (S1) 3+ Fair+ Adduction 3+ Fair+ Comments Strength is 5/5 except as indicated above. PT-OP-Q Treatments Start: 07/06/23 17:49 Freq: Status: Active Protocol: Document 12/21/23 09:03 LRN (Rec: 12/21/23 09:47 LRN [id number]) Therapeutic Exercises Supine Exercises Kegel-Long Hold Reps/Minutes 7' Kegel-Quick contractions Reps/Minutes 5' Hip ER/IR Supine Exercise Name Briefly in supine PROM of Hip ER/IR Side bilateral Reps/Minutes 6' Comments ROM taken TA tightening Reps/Minutes 3' Prone Exercises Knee Planks Reps/Minutes 2' Sphinx stretch Reps/Minutes 2' Sitting Exercises Deep Breathing Sitting Exercise Name Deep breath w/Kegel hold & TA. Reps/Minutes 1' SL Hip AD stretch Side bilateral Reps/Minutes 3' Comments with breath Standing Exercises Hip AD stretch Standing Exercise Name Review of her standing V- Stretch Reps/Minutes 1' Gastroc stretch Standing Exercise Name Done in combo with Iliopsoas stretch Side bilateral Reps/Minutes 2' Comments Cuing for foot placement. Iliopsoas stretch Side bilateral Reps/Minutes 4' Comments with breath PT-OP-T Assessment and Plan Start: 07/06/23 17:49 Freq: Status: Active Protocol: Document 12/21/23 09:03 LRN (Rec: 12/21/23 09:47 LRN [id number]) Physical Therapy Assessment Rehab Potential Rehabilitation Potential Good Evaluation Complexity Number of Personal Factors/Comorbidities 3 or More Number of Body Systems Impaired 4 or More Clinical Presentation at Evaluation Evolving Impairments Impairments Activity Tolerance,Pain, Posture,ROM,Strength Goals Four Impairment Urinary incontinence with a strong cough, sneeze. Short Term Goal (STG) Improve PF strength per Long Hold 10 sec's prior to fatigue and Quick Flicks 7-8 reps in 10 secs. 12/21/23: PF long hold contractions 10 secs; Quick Flick contractions 6 before weakening. STG Duration 8 wks-02/16/24 Improved (goal met for long holds ) Test Lab Technician Goal (LTG) Pt will have decreased complaints of urinary stress incontinent symptoms and will be able to maintain continence in the presence of a strong cough, sneeze and with laughing. 09/01/23: 90% of time if contracts before coughing, sneezing or laughing, otherwise still leaking. 12/15/23: Sneezed once, forgot to contract PF; therefore had urinary leakage. LTG Duration 11 wks-03/08/24 progressing 12/15/23 Three Impairment Decreased hip mobility limiting PF and core strength Impairment Decreased hip mobility: IR 10 L, 20 R; ER 90 L, 60 R). Short Term Goal (STG) Pt will be independent with a HEP of hip stretches (mainly richard IR's and R ER), and hip ext, AD strengthening exercises. 08/04/23: HEP: hip AD stretch (SL & Richard) and hip IR (knee to opp shoulder, lat hip) and ER (fig4). 09/01/23: Pt needing review of HEP. 10/06/23: HEP: 2 handout for Diaphragmatic Breathing in sit & in supine; and standing Iliopsoas stretch. Re-issued handout for hip stretches ( Piriformis, lateral hiop and Fig 4). STG Duration 6 wks-11/17/23 (12/15/23: MET GOAL) Test Lab Technician Goal (LTG) Pt will demonstrate improved richard hip IR and R hip ER PROM, and improve hip ext and AD strength by 1/2 grade or more. 12/15/23: Has not been able to stretch while on vacation for past 2.5 wks. LTG Duration 11 wks-03/08/24 Two Impairment Poor core stability limiting exercise tolerance. Short Term Goal (STG) Pt will be educated in how to exercise safely by tracking HR and performing a TA while normal breathing. 12/15/23: Pt educated and demonstrated ability to track her HR at the wrist. Resting HR on L wrist was 76. STG Duration 8 wks-02/16/24 progressed 05/28 (?TA w/breathing). Fdc Goal (LTG) Improve core stability with pt able to maintain a TA contraction with exercise to be able to functionally exercise (to help with wgt loss). LTG Duration 11 wks-03/08/24 One Impairment Pt lacks an independent self care HEP. Short Term Goal (STG) Pt educated in proper transfers to lessen core abdominal pressure. STG Duration 8 wks-02/16/24 Fdc Goal (LTG) Pt will be independent in a self care HEP for PF strengthening and be able to coordinate pulling up/in with PF (anter/food product inspector) and abdomen with a PF contraction. 08/04/23: Re-Issued HEP of Kegel ex's w/focus on long holds. LTG Duration 11 wks-03/08/24 progressed 08/04/23 Assessment Summary Assessment Pt is a 68 yo female referred for JANNETTE, core stabilization; she has complaints of anal/ abdominal pain with BM's and sometimes before having a bowel movement. Pt had one episode of hemorroid bleeding with BM while on vacation recently, pushing to have BM; therefore it appears posterior PF tightness persists. The pt has attended 9 visits since 07/2023 (scheduling difficulties and pt unavailble ); therefore progress has been very slow. Her PUF score is worse today, although there is some inconsistency with scoring as her PUF score is 4 and was 3 on her last visit ( initially scored 1). Her PFDI -20 score was 26.04 last visit . Today on PF exam she had many small nodules in soft tissue of internal vaginal canal near entry that should be further assessed. Pt has been instructed to discuss with referring physician for OBGYN consult. PT's summer schedule and pt travel plans will result in hold of therapy for a few weeks, giving the pt the opportunity to be further assessed in her pelvic floor before recommended return for physical therapy PF rehabilitation, working to achieve goals as stated above. The pt would benefit from further skilled physical therapy. Physical Therapy Plan Frequency and Duration Duration of treatment (weeks) 11 Plan of Care Start Date 12/21/23 Plan of Care End Date 03/08/24 Therapeutic Interventions Therapeutic Interventions Home Exercise Program,Joint Mobilizations,Manual Therapy, Neuromuscular Re-education, Self-Care/Home Management,Soft Tissue Mobilization, Therapeutic Activities, Therapeutic Exercises Modalities Biofeedback,Electric Stimulation Other Referrals/Consults Referrals/Consults Recommended OBGYN consult for many small nodules in soft tissue of internal vaginal canal near entry that should be further assessed. Next Visit Focus/Plan Next Note Type Treatment Note Next Visit Plan Next: Assess: richard hip IR and R hip ER PROM & hip ext/AD strength for exercises. Review BM massage and issue handout if needed. Assess anal/abdominal pain with & prior to BM's. Assess if pt is drawing PF up/in rather than bulging out before deciding on doing VEMG biofeedback assessment & if pt agreeable. Add to HEP: hip AD strengthening. Neuro-scott: -proper Kegel without use of substitute muscles, -proper transfers to lessen core abdominal pressure, -breathing with transfers and body mechanics (functional activities). Pt education resting HR and exercise parameters with pt education in self HR assessment. Strengthening: Core (TA, prevent doming), hip AD & extensors. ROM: extenson (? hip AD), LB flex stretch. Manual: cont Ilipsoas release ; hip mobs, bladder, intestines, & as needed manual therapy to L abdomen, to unkink colon. POC: JANNETTE rehab; PF for pain/ tight & PF strength (quick/ long hold) & hip ROM/strength; core/TA stab, improve hip mobility.
--- NOTE | 2023-12-26 12:59 | PT.OTN ---
Current Diagnoses Stiffness of unspecified hip, not elsewhere classified (12/26/23) Muscle weakness (generalized) (12/26/23) Stress incontinence (female) (male) (12/26/23) Pelvic and perineal pain (12/26/23) Physical Therapy Treatment Note PT-OP-A Visit Information Start: 07/06/23 17:49 Freq: Status: Active Protocol: Document 12/26/23 10:38 LRN (Rec: 12/26/23 12:29 LRN [id number]) Out-Patient Physical Therapy Visit Information Visit Information Visit Type Treatment Note Visit Start Time 10:38 Visit Stop Time 11:18 Visit Number 10 Evaluation Information Evaluation Date 07/14/23 Precautions Precautions BPPV if bends over head down, Hyste followed by Bladder sling surgery in 2004, intestinal blockage surgery (8 -10 inches of upper small intenstine bowels removed) 2019, and facial surgery 2007, history of hemorrhoids, heart condition of PVCs. PT-OP-B Current Condition Start: 07/06/23 17:49 Freq: Status: Active Protocol: Document 07/14/23 13:44 LRN (Rec: 07/14/23 16:51 LRN [id number]) Current Condition History of Current Condition Onset Date 05/05/2020 Current Complaints PF weakness, hemorrhoid pain with BM, stress incontinence. History of Current Condition Pt states her main reason for PT is because of stress incontinence (started 40 yrs ago) and hemorrhoid pain since bowel surgery for bowel blockage 3 yrs ago. She reports an emergency surgery ( 05/05/2020) to remove 8-10 inches of upper small intenstine bowels. She has had a hyste in 2004 with complications due to scar tissue, then had a bladder sling put in later in 2004 (in [facility], [place]) with resolution of urinary leakage. Now having a couple drops of urinary leakage with cough, sneeze and strong urge. Had 4 sessions with PF PT in [place] ([facility] in [place], [place]) to help build PF ms tone and worked on identifying core ms and hemorrhoid and sphincter muscles and and how to contract them. States she was just learning when she had to leave and was given a few exercises. 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 Prior Treatments and Tests PF physical therapy in [facility]. Developmental History Developmental History 60 yrs of playing violin causing neck pain and has a family history of cervical spinal stenosis. Treatment Goals Patient/Caregiver Goals Pt goals: Deep Breath properly, functional exercise to lose wgt and learn how to exercise safely, eliminate urinary incontinence, and reduce pain with BM's. Personal Factors Other Personal Factors That May Effect Pt reported: Therapy/Recovery Heart condition of PVCs, was told by marine machinist to work up to exercise, Bowel surgery for bowel blockage 3 yrs ago, Hyste followed by Bladder sling surgery in 2004, History of hemorrhoids. PT-OP-C Subjective Start: 07/06/23 17:49 Freq: Status: Active Protocol: Document 12/26/23 10:38 LRN (Rec: 12/26/23 12:29 LRN [id number]) OP-PT Subjective Patient Comments Patient Comments States on stress test last week, she did well, but is just out of shape. Having plantar fasciitis of feelt L>R . PT-OP-I Pelvic Floor Start: 07/06/23 17:49 Freq: Status: Active Protocol: Document 12/21/23 09:03 LRN (Rec: 12/21/23 09:47 LRN [id number]) Pelvic Floor Assessment Pelvic Clock Pelvic Clock Other Pelvic Clock 6-8 O'Clock has small nodules in soft tissue of internal vaginal canal near entry. 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 PT-OP-J Posture/Palpation/Skin Start: 07/06/23 17:49 Freq: Status: Active Protocol: Document 07/14/23 13:44 LRN (Rec: 07/14/23 16:51 LRN [id number]) Posture Evaluation Position Standing Head/C-Spine Posture Forward Head L-Spine Posture Increased Lordosis Pelvis Posture Anteriorly Tilted Knee Posture (L) Genu Valgus,(R) Genu Valgus Comments Posture Comments Dowagers hump. R UT tightness . PT-OP-K Range of Motion Start: 07/06/23 17:49 Freq: Status: Active Protocol: Document 12/21/23 09:03 LRN (Rec: 12/21/23 09:47 LRN [id number]) Hip Goniometric Range of Motion Hip Right Passive Testing Position Supine Internal Rotation 30 External Rotation 80 Left Passive Testing Position Supine Internal Rotation 20 External Rotation 75 PT-OP-M Strength Start: 07/06/23 17:49 Freq: Status: Active Protocol: Document 12/26/23 10:38 LRN (Rec: 12/26/23 12:29 LRN [id number]) Hip Strength Hip Manual Muscle Testing Right Extension (S1) 4 Good Adduction 2+ Poor+ Comments Strength is 5/5 except as indicated above. Left Extension (S1) 4+ Good+ Adduction 3- Fair- Comments Strength is 5/5 except as indicated abovel PT-OP-Q Treatments Start: 07/06/23 17:49 Freq: Status: Active Protocol: Document 12/26/23 10:38 LRN (Rec: 12/26/23 12:29 LRN [id number]) Therapeutic Exercises Supine Exercises TA tightening Supine Exercise Name Review of TA tightening coordinating with breath and Kegel. Reps/Minutes 5' Prone Exercises Sphinx stretch Prone Exercise Name Reviewed pt position and trained in breathing and abdominal relaxation. Reps/Minutes 3' Standing Exercises Wall Push up Reps/Minutes 3' Comments Cued to exhale on drop and inhale on return with Kegel hold thru mvmt Other Exercises Child's Pose Other Exercise Name Education and training for mvmt coordination with breath/ Kegel Reps/Minutes 5' Self-Care/Home Management Treatment Education Other Education Discussed at pt request her HEP and how she is to coordinate breathe, with Kegel , with TA, and with exer. Discussed at length all those aspects and combinations of them, and stressed if she is holding TA with ex she must hold Kegel. Recommended pt not to hold TA tightly (due to poor core pressure mgmt), but focus on keeping PF tight. Educated pt in breathing pattern for ex walking, as to not hold breath. Education in Stress Test Max HR and her Exercise Max HR, and discussed/recommended water walking or in deep water , running to eliminte stress on plantar fascia in arch of feet (L>R). Pt educated in movements to lessen core pressure w/handout issued for sup<>sit<>stand. Activities Self-Care/Home Management Activities Issued Handout for: Transfers of sup<>sit<>stand with core pressure mgmt breathing and PF contractions. PT-OP-T Assessment and Plan Start: 07/06/23 17:49 Freq: Status: Active Protocol: Document 12/26/23 10:38 LRN (Rec: 12/26/23 12:29 LRN [id number]) Physical Therapy Assessment Goals Four Impairment Urinary incontinence with a strong cough, sneeze. Short Term Goal (STG) Improve PF strength per Long Hold 10 sec's prior to fatigue and Quick Flicks 7-8 reps in 10 secs. 12/21/23: PF long hold contractions 10 secs; Quick Flick contractions 6 before weakening. STG Duration 8 wks-02/16/24 Improved (goal met for long holds ) Toy Consultant Goal (LTG) Pt will have decreased complaints of urinary stress incontinent symptoms and will be able to maintain continence in the presence of a strong cough, sneeze and with laughing. 09/01/23: 90% of time if contracts before coughing, sneezing or laughing, otherwise still leaking. 12/15/23: Sneezed once, forgot to contract PF; therefore had urinary leakage. 12/26/23: No change LTG Duration 11 wks-03/08/24 progressing 12/26/23 Three Impairment Decreased hip mobility limiting PF and core strength Impairment Decreased hip mobility: IR 10 L, 20 R; ER 90 L, 60 R). Short Term Goal (STG) Pt will be independent with a HEP of hip stretches (mainly richard IR's and R ER), and hip ext, AD strengthening exercises. 08/04/23: HEP: hip AD stretch (SL & Richard) and hip IR (knee to opp shoulder, lat hip) and ER (fig4). 09/01/23: Pt needing review of HEP. 10/06/23: HEP: 2 handout for Diaphragmatic Breathing in sit & in supine; and standing Iliopsoas stretch. Re-issued handout for hip stretches ( Piriformis, lateral hiop and Fig 4). STG Duration 6 wks-11/17/23 (12/15/23: MET GOAL) Toy Consultant Goal (LTG) Pt will demonstrate improved richard hip IR and R hip ER PROM, and improve hip ext and AD strength by 2 grade or more. 12/15/23: Has not been able to stretch while on vacation for past 2.5 wks. 12/31/23: Hip PROM (deg's): IR 20 L, 30 R (was 10 L, 20 R) & Hip ER 70 R (was 60 R). MMT: Hip Ext is 4+/5 L, 4/5 R ; AD is 3-/5 L, 2+/5 R (was: Ext 3+/5 L, 3/5 R; AD 3+/5 L, 4/5 R). LTG Duration 11 wks-03/08/24 (12/26/23: Partially Met Goal, PROM goal met) Two Impairment Poor core stability limiting exercise tolerance. Short Term Goal (STG) Pt will be educated in how to exercise safely by tracking HR and performing a TA while normal breathing. 12/15/23: Pt educated and demonstrated ability to track her HR at the wrist. Resting HR on L wrist was 76. 12/26/23: Held training of TA tightening with exercise due to pt not coordinated with breathe/ex. STG Duration 8 wks-02/16/24 (12/26/23: Partially met goal) Jail Goal (LTG) Improve core stability with pt able to maintain a TA contraction with exercise to be able to functionally exercise (to help with wgt loss). 12/26/23: Held training of TA tightening with ex due to pt not coordinated with TA/ breathe and ex. LTG Duration 11 wks-03/08/24 (12/26/23: NOT MET GOAL) One Impairment Pt lacks an independent self care HEP. Short Term Goal (STG) Pt educated in proper transfers to lessen core abdominal pressure. 12/26/23: Pt educated in movements to lessen core pressure w/handout issued for sup<>sit<>stand. STG Duration 8 wks-02/16/24 (12/26/23: MET GOAL) Jail Goal (LTG) Pt will be independent in a self care HEP for PF strengthening and be able to coordinate pulling up/in with PF (anter/inspector motor vehicles) and abdomen with a PF contraction. 08/04/23: Re-Issued HEP of Kegel ex's w/focus on long holds. Pt able to perform a Kegel; not able to identify through palpation if she is drawing her PF up/in with Kegel. Digital assessment of PF was deferred due to time constraints after pt requested education and discussion. LTG Duration 11 wks-03/08/24 (12/26/23: Partially Met Goal) Assessment Summary Assessment Pt is a 68 yo female, hx of 3G3P of vaginal births, referred for JANNETTE, core stabilization; with complaints of anal/abdominal pain with BM's and sometimes before having a bowel movement. She has been seen overall 10 times in 5 months. During week of 08/15/23 her abdominal pain was reduced and she repored being normal, during months of October to December she had 2 episodes of pushing with BM's resulting in bleeding from hemorrhoids due to constipation. She attends today most concerned of understanding her HEP correctly of coordinating breathing pattern with exercise and needing clarification for exercise. She appeared to have a better understanding after discussion and education with pt taking notes to help her remember how to coordinate breathe with exercise. The pt was not able to improve hip AD strength or coordinate holding of TA during breathing. The pt has chosen for early discharge due to changing of her PCP and wanting to restart physical therapy when she returns from her vacation in March/ April under her new PCP. Pt is being discharged to her HEP today. Physical Therapy Plan Discharge Physical Therapy Discharge Reasons Patient Request Discharge Comments Pt plans to request PT referral on her return from vacation and understands she will need a new referral to return to therapy. Thank you for your referral.
--- NOTE | 2023-12-26 13:10 | PT.OTN ---
Current Diagnoses Stiffness of unspecified hip, not elsewhere classified (12/26/23) Muscle weakness (generalized) (12/26/23) Stress incontinence (female) (male) (12/26/23) Pelvic and perineal pain (12/26/23) Physical Therapy Treatment Note PT-OP-A Visit Information Start: 07/06/23 17:49 Freq: Status: Active Protocol: Document 12/26/23 10:38 LRN (Rec: 12/26/23 12:29 LRN [id number]) Out-Patient Physical Therapy Visit Information Visit Information Visit Type Treatment Note Visit Start Time 10:38 Visit Stop Time 11:18 Visit Number 10 Evaluation Information Evaluation Date 07/14/23 Precautions Precautions BPPV if bends over head down, Hyste followed by Bladder sling surgery in 2004, intestinal blockage surgery (8 -10 inches of upper small intenstine bowels removed) 2019, and facial surgery 2007, history of hemorrhoids, heart condition of PVCs. PT-OP-B Current Condition Start: 07/06/23 17:49 Freq: Status: Active Protocol: Document 07/14/23 13:44 LRN (Rec: 07/14/23 16:51 LRN [id number]) Current Condition History of Current Condition Onset Date 05/05/2020 Current Complaints PF weakness, hemorrhoid pain with BM, stress incontinence. History of Current Condition Pt states her main reason for PT is because of stress incontinence (started 40 yrs ago) and hemorrhoid pain since bowel surgery for bowel blockage 3 yrs ago. She reports an emergency surgery ( 05/05/2020) to remove 8-10 inches of upper small intenstine bowels. She has had a hyste in 2004 with complications due to scar tissue, then had a bladder sling put in later in 2004 (in [facility]) with resolution of urinary leakage. Now having a couple drops of urinary leakage with cough, sneeze and strong urge. Had 4 sessions with PF PT in [place] ([facility] in [place], [place]) to help build PF ms tone and worked on identifying core ms and hemorrhoid and sphincter muscles and and how to contract them. States she was just learning when she had to leave and was given a few exercises. 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 Prior Treatments and Tests PF physical therapy in [facility]. Developmental History Developmental History 60 yrs of playing violin causing neck pain and has a family history of cervical spinal stenosis. Treatment Goals Patient/Caregiver Goals Pt goals: Deep Breath properly, functional exercise to lose wgt and learn how to exercise safely, eliminate urinary incontinence, and reduce pain with BM's. Personal Factors Other Personal Factors That May Effect Pt reported: Therapy/Recovery Heart condition of PVCs, was told by sole painter to work up to exercise, Bowel surgery for bowel blockage 3 yrs ago, Hyste followed by Bladder sling surgery in 2004, History of hemorrhoids. PT-OP-C Subjective Start: 07/06/23 17:49 Freq: Status: Active Protocol: Document 12/26/23 10:38 LRN (Rec: 12/26/23 12:29 LRN [id number]) OP-PT Subjective Patient Comments Patient Comments States on stress test last week, she did well, but is just out of shape. Having plantar fasciitis of feelt L>R . Patient Questionnaires Pelvic Floor Distress Inventory Questionnaire (PFDI- SF20) Pelvic Floor Score 8 PT-OP-I Pelvic Floor Start: 07/06/23 17:49 Freq: Status: Active Protocol: Document 12/21/23 09:03 LRN (Rec: 12/21/23 09:47 LRN [id number]) Pelvic Floor Assessment Pelvic Clock Pelvic Clock Other Pelvic Clock 6-8 O'Clock has small nodules in soft tissue of internal vaginal canal near entry. 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 PT-OP-J Posture/Palpation/Skin Start: 07/06/23 17:49 Freq: Status: Active Protocol: Document 07/14/23 13:44 LRN (Rec: 07/14/23 16:51 LRN [id number]) Posture Evaluation Position Standing Head/C-Spine Posture Forward Head L-Spine Posture Increased Lordosis Pelvis Posture Anteriorly Tilted Knee Posture (L) Genu Valgus,(R) Genu Valgus Comments Posture Comments Dowagers hump. R UT tightness . PT-OP-K Range of Motion Start: 07/06/23 17:49 Freq: Status: Active Protocol: Document 12/21/23 09:03 LRN (Rec: 12/21/23 09:47 LRN [id number]) Hip Goniometric Range of Motion Hip Right Passive Testing Position Supine Internal Rotation 30 External Rotation 80 Left Passive Testing Position Supine Internal Rotation 20 External Rotation 75 PT-OP-M Strength Start: 07/06/23 17:49 Freq: Status: Active Protocol: Document 12/26/23 10:38 LRN (Rec: 12/26/23 12:29 LRN [id number]) Hip Strength Hip Manual Muscle Testing Right Extension (S1) 4 Good Adduction 2+ Poor+ Comments Strength is 5/5 except as indicated above. Left Extension (S1) 4+ Good+ Adduction 3- Fair- Comments Strength is 5/5 except as indicated abovel PT-OP-Q Treatments Start: 07/06/23 17:49 Freq: Status: Active Protocol: Document 12/26/23 10:38 LRN (Rec: 12/26/23 12:29 LRN [id number]) Therapeutic Exercises Supine Exercises TA tightening Supine Exercise Name Review of TA tightening coordinating with breath and Kegel. Reps/Minutes 5' Prone Exercises Sphinx stretch Prone Exercise Name Reviewed pt position and trained in breathing and abdominal relaxation. Reps/Minutes 3' Standing Exercises Wall Push up Reps/Minutes 3' Comments Cued to exhale on drop and inhale on return with Kegel hold thru mvmt Other Exercises Child's Pose Other Exercise Name Education and training for mvmt coordination with breath/ Kegel Reps/Minutes 5' Self-Care/Home Management Treatment Education Other Education Discussed at pt request her HEP and how she is to coordinate breathe, with Kegel , with TA, and with exer. Discussed at length all those aspects and combinations of them, and stressed if she is holding TA with ex she must hold Kegel. Recommended pt not to hold TA tightly (due to poor core pressure mgmt), but focus on keeping PF tight. Educated pt in breathing pattern for ex walking, as to not hold breath. Education in Stress Test Max HR and her Exercise Max HR, and discussed/recommended water walking or in deep water , running to eliminte stress on plantar fascia in arch of feet (L>R). Pt educated in movements to lessen core pressure w/handout issued for sup<>sit<>stand. Activities Self-Care/Home Management Activities Issued Handout for: Transfers of sup<>sit<>stand with core pressure mgmt breathing and PF contractions. PT-OP-T Assessment and Plan Start: 07/06/23 17:49 Freq: Status: Active Protocol: Document 12/26/23 10:38 LRN (Rec: 12/26/23 12:29 LRN [id number]) Physical Therapy Assessment Goals Four Impairment Urinary incontinence with a strong cough, sneeze. Short Term Goal (STG) Improve PF strength per Long Hold 10 sec's prior to fatigue and Quick Flicks 7-8 reps in 10 secs. 12/21/23: PF long hold contractions 10 secs; Quick Flick contractions 6 before weakening. STG Duration 8 wks-02/16/24 Improved (goal met for long holds ) Retirement Goal (LTG) Pt will have decreased complaints of urinary stress incontinent symptoms and will be able to maintain continence in the presence of a strong cough, sneeze and with laughing. 09/01/23: 90% of time if contracts before coughing, sneezing or laughing, otherwise still leaking. 12/15/23: Sneezed once, forgot to contract PF; therefore had urinary leakage. 12/26/23: No change LTG Duration 11 wks-03/08/24 progressing 12/26/23 Three Impairment Decreased hip mobility limiting PF and core strength Impairment Decreased hip mobility: IR 10 L, 20 R; ER 90 L, 60 R). Short Term Goal (STG) Pt will be independent with a HEP of hip stretches (mainly richard IR's and R ER), and hip ext, AD strengthening exercises. 08/04/23: HEP: hip AD stretch (SL & Richard) and hip IR (knee to opp shoulder, lat hip) and ER (fig4). 09/01/23: Pt needing review of HEP. 10/06/23: HEP: 2 handout for Diaphragmatic Breathing in sit & in supine; and standing Iliopsoas stretch. Re-issued handout for hip stretches ( Piriformis, lateral hiop and Fig 4). STG Duration 6 wks-11/17/23 (12/15/23: MET GOAL) Retirement Goal (LTG) Pt will demonstrate improved richard hip IR and R hip ER PROM, and improve hip ext and AD strength by 1/2 grade or more. 12/15/23: Has not been able to stretch while on vacation for past 2.5 wks. 12/31/23: Hip PROM (deg's): IR 20 L, 30 R (was 10 L, 20 R) & Hip ER 70 R (was 60 R). MMT: Hip Ext is 4+/5 L, 4/5 R ; AD is 3-/5 L, 2+/5 R (was: Ext 3+/5 L, 3/5 R; AD 3+/5 L, 4/5 R). LTG Duration 11 wks-03/08/24 (12/26/23: Partially Met Goal, PROM goal met) Two Impairment Poor core stability limiting exercise tolerance. Short Term Goal (STG) Pt will be educated in how to exercise safely by tracking HR and performing a TA while normal breathing. 12/15/23: Pt educated and demonstrated ability to track her HR at the wrist. Resting HR on L wrist was 76. 12/26/23: Held training of TA tightening with exercise due to pt not coordinated with breathe/ex. STG Duration 8 wks-02/16/24 (12/26/23: Partially met goal) Lighting Engineer Goal (LTG) Improve core stability with pt able to maintain a TA contraction with exercise to be able to functionally exercise (to help with wgt loss). 12/26/23: Held training of TA tightening with ex due to pt not coordinated with TA/ breathe and ex. LTG Duration 11 wks-03/08/24 (12/26/23: NOT MET GOAL) One Impairment Pt lacks an independent self care HEP. Short Term Goal (STG) Pt educated in proper transfers to lessen core abdominal pressure. 12/26/23: Pt educated in movements to lessen core pressure w/handout issued for sup<>sit<>stand. STG Duration 8 wks-02/16/24 (12/26/23: MET GOAL) Retirement Goal (LTG) Pt will be independent in a self care HEP for PF strengthening and be able to coordinate pulling up/in with PF (anter/salary manager) and abdomen with a PF contraction. 08/04/23: Re-Issued HEP of Kegel ex's w/focus on long holds. Pt able to perform a Kegel; not able to identify through palpation if she is drawing her PF up/in with Kegel. Digital assessment of PF was deferred due to time constraints after pt requested education and discussion. LTG Duration 11 wks-03/08/24 (12/26/23: Partially Met Goal) Assessment Summary Assessment Pt is a 68 yo female, hx of 3G3P of vaginal births, referred for JANNETTE, core stabilization; with complaints of anal/abdominal pain with BM's and sometimes before having a bowel movement. She has been seen overall 10 times in 5 months. During week of 08/15/23 her abdominal pain was reduced and she repored being normal, during months of October to December she had 2 episodes of pushing with BM's resulting in bleeding from hemorrhoids due to constipation. She attends today most concerned of understanding her HEP correctly of coordinating breathing pattern with exercise and needing clarification for exercise. She appeared to have a better understanding after discussion and education with pt taking notes to help her remember how to coordinate breathe with exercise. The pt was not able to improve hip AD strength or coordinate holding of TA during breathing. The pt has chosen for early discharge due to changing of her PCP and wanting to restart physical therapy when she returns from her vacation in March/ April under her new PCP. Pt is being discharged to her HEP today. Physical Therapy Plan Discharge Physical Therapy Discharge Reasons Patient Request Discharge Comments Pt plans to request PT referral on her return from vacation and understands she will need a new referral to return to therapy. Thank you for your referral.
== END 2023-12-28 10:20 | disposition home or self-care (01) ==
LOC: PHYS 10:30
PROVIDERS: Family Provider Internal Medicine; PCP Family Medicine; Referring Provider Internal Medicine; Visit Provider Internal Medicine
DX: N39.3 Stress incontinence (female) (male) (principal); R10.2 Pelvic and perineal pain; M25.659 Stiffness of unspecified hip, not elsewhere classified; M62.81 Muscle weakness (generalized)
CPT/HCPCS: 97110; 97112; 97140; 97162; 97535

== ENCOUNTER → 2023-12-29 09:17 | Outpatient (CLI) | payer MEDICARE, OTHER, SELFPAY ==
[2023-12-29 10:37] LABS: Alanine Aminotransferase 32 IU/L (<35); Albumin 4.3 g/dL (3.5-5.0); Albumin Globulin Ratio 1.7 (1.0-2.8); Alkaline Phosphatase 92 U/L (38-126); Aspartate Aminotransferase 31 IU/L (14-36); BUN Creatinine Ratio 19.4 (6-22); Bilirubin Total 0.5 mg/dL (0.2-1.3); Blood Urea Nitrogen 14 mg/dL (7-17); Calcium 9.7 mg/dL (8.4-10.2); Carbon Dioxide 29 mmol/L (22-32); Chloride 104 mmol/L (98-107); Cholesterol 183 mg/dL (140-199); Estimated Glomerular Filt Rate > 60 mL/min (>60); Globulin 2.5 g/dL (1.7-4.1); Glucose 99 mg/dL (80-110); HDL Cholesterol 56 mg/dL (40-60); HEMOLYSIS < 15 (0-50); LDL Cholesterol Calculated 78 mg/dL (<100); Potassium 4.8 mmol/L (3.4-5.1); Sodium 138 mmol/L (137-145); Total Protein 6.8 g/dL (6.3-8.2); Triglycerides 244 mg/dL (35-150)
[2023-12-29 11:58] LABS: Hemoglobin A1C% w Est Avg Glu 5.8 % (4.0-6.0)
[2023-12-29 12:31] LABS: Free T4, Direct Thyroxine 0.77 ng/dL (0.78-2.19)
[2023-12-29 12:44] LABS: Thyroid Stimulating Hormone 1.74 uIU/mL (0.47-4.68)
== END ==
PROVIDERS: Family Provider Internal Medicine; PCP Family Medicine; Referring Provider Family Medicine; Visit Provider Family Medicine
DX: Z13.1 Encounter for screening for diabetes mellitus (principal); E03.9 Hypothyroidism, unspecified; E78.5 Hyperlipidemia, unspecified; I10 Essential (primary) hypertension
CPT/HCPCS: 36415; 80053; 80061; 83036; 84439; 84443; 84481

== ENCOUNTER → 2024-01-12 08:34 | Outpatient (CLI) | payer MEDICARE, OTHER, SELFPAY ==
--- NOTE | 2024-01-12 08:35 | DI.MG.S_ITS ---
BILATERAL DIGITAL SCREENING MAMMOGRAM 3D/2D WITH CAD: 01/12/2024 CLINICAL: Routine screening. Family history of breast cancer. Comparison is made to exams dated: 01/10/2023 mammogram, 12/31/2021 mammogram, 12/31/2020 mammogram, 01/16/2020 mammogram, and 01/03/2020 mammogram - [facility]. There are scattered areas of fibroglandular density in both breasts (category b / 25%-50% glandular tissue). Current study was also evaluated with a Computer Aided Detection (CAD) system. There is a biopsy clip in the right breast. No significant masses, calcifications, or other findings are seen in either breast. There has been no significant interval change. IMPRESSION: NEGATIVE There is no mammographic evidence of malignancy. A 1 year screening mammogram is recommended. Based on the Tyrer Cuzick model (a risk assessment model) the patient's lifetime risk is 9.7% and her 10 year risk is 6.2%. According to the ACR, ACS, and NCCN guidelines, an annual breast MRI exam along with mammogram is recommended if the patient's lifetime risk is 20% or greater. This exam was interpreted at Station ID: [id number]. NOTE: For mammograms, a report in lay terms will be sent to the patient. Approximately 15% of breast malignancies will not be visualized mammographically. In the management of a palpable breast mass, a negative mammogram must not discourage biopsy of a clinically suspicious lesion. Electronically Signed By: Edson shaw/ismael:01/12/2024 13:00:29 letter sent: Normal Exam ACR BI-RADS Category 1: Negative [id number]
== END ==
PROVIDERS: Family Provider Internal Medicine; PCP Family Medicine; Referring Provider Family Medicine; Visit Provider Family Medicine
DX: Z12.31 Encounter for screening mammogram for malignant neoplasm of breast (principal); Z80.3 Family history of malignant neoplasm of breast; R92.323 Mammographic fibroglandular density, bilateral breasts
CPT/HCPCS: 77063; 77067

== ENCOUNTER 2024-02-15 08:15 | Outpatient (RCR) | payer MEDICARE, OTHER, SELFPAY ==
--- NOTE | 2024-02-08 16:09 | PT.OIE ---
Current Diagnoses Other chronic pain (02/08/24) Pain in unspecified shoulder (02/08/24) Cervicalgia (02/08/24) Past Medical History (Last Updated 01/12/24 @ 11:55 by Margaret Herron MD) BPPV (benign paroxysmal positional vertigo) (~2004) Breast cancer screening Breast lump Hyperlipidemia Hypothyroidism Neck pain CELSO (obstructive sleep apnea) Plantar fascia syndrome Pre-diabetes PVC (premature ventricular contraction) Weight loss counseling, encounter for Past Surgical History (Last Reviewed 12/21/23 @ 12:40 by Claudy Adam MD) Anesthesia History of bladder surgery (~2004) History of bowel resection (~2019) History of hysterectomy (~2004) History of mandibular surgery (~2007) Visit Care Team Role Provider Type Rachna Rollins MD Family Provider Physician Specialty: Internal Medicine Address: [place] [address] Email: Margaret Herron MD Attending Provider Physician Primary Care Provider Referring Provider Specialty: Family Practice [employer] Address: [address] [place] [address], [facility] Fax: Email: [email or web address] Physical Therapy Initial Evaluation PT-OP-A Visit Information Start: 02/02/24 20:06 Freq: Status: Active Protocol: Document 02/08/24 08:20 LRN (Rec: 02/08/24 09:13 DELFINO [id number]) Out-Patient Physical Therapy Visit Information Visit Information Visit Type Initial Evaluation Visit Start Time 08:20 Visit Stop Time 09:11 Visit Number 1 Evaluation Information Evaluation Date 02/08/24 Precautions Precautions ...... PT-OP-B Current Condition Start: 02/02/24 20:06 Freq: Status: Active Protocol: Document 02/08/24 08:20 LRN (Rec: 02/08/24 09:13 LRN [id number]) Current Condition History of Current Condition Onset Date 5 yrs ago. Current Complaints neck pn restricts her movement , violin playing, driving ( most looking L) History of Current Condition Exacerbation of neck/shoulder pain after moving to [place] 5 yrs ago and stopped playing the violin, when took up the violin again was only able to play 20 minutes before needing to put it down (used to play for 2-3 hrs). Pain is a constant deep ache, occasionally uses ASA to help sleep and has been recently using hot pack around neck to sleep. Can't turn her head to play violin and has difficulty with driving ( mostly looking left). Currently doing [employer], but last couple of weeks it hurts after ex but feels better afterward. Pain rated 3-5/10 and is constant. She has R shoulder pain (R handed) when doing repetitious movement, not associated to turning of head (gardening/digging/ hammering/scubbing floors, sewing). L radiating shoulder pain with turning her head down to play the violin. When quilting, gets bilateral shoulder pain. Has 20 quilts to make. Sleeping has sometimes tingling in hands and hands go to sleep (usually when hand is on chest), normalizes when stretching out the arms, happening ~1x/2 wks or less, not often. Getting ready to leave on trip to visit grandchildren Feb 19 - . Pt has 2 treatment visits before discharge and would like starting ex's and return later for more therapy if needed. Prior Treatments and Tests Chiropractor in [place] for gentle mobs. Treatment Goals Patient/Caregiver Goals Be put on ex program for neck shoulder to start process of return to ROM. Ultimately would like to be able to play violin again and other activities w/o neck/ shoulder pain. Prior Functional Status Baseline Function- Other Played violin 2 hrs/day, can do only 20 minutes now. Current Functional Impairments (Reported) Functional Limitations- ADL's Can only play violin 20 minutes. s Personal Factors Other Personal Factors That May Effect Arthritis. Therapy/Recovery Hx of Dizziness/vestibular dysfunction, Jaw surgery for sleep apnea ( moved jaw forward). Pt goal of making 20 quilts. Planning on leaving for a 3 month travel trip to visit family. PT-OP-C Subjective Start: 02/02/24 20:06 Freq: Status: Active Protocol: Document 02/08/24 08:20 LRN (Rec: 02/08/24 09:13 LRN [id number]) OP-PT Subjective Patient Comments Patient Comments R arm is bow arm. Pt is R handed. Patient Questionnaires Neck Disability Index NDI Score 13 Quick Dash- Upper Extremity Quick Dash UE Score 20.45 Quick Dash UE Impairment 20 to 39% Impaired (Score 20- 39) OP-PT Pain Assessment Location R UE Pain Location Details Posterior distal brachium Intensity 3 Scale Used Numeric (0 - 10) Description Aching Description- Other Deep Other Pain Aggravating Factors Poor Posture. L UE Pain Location Details Posterior/Middle Deltoid Intensity 4 Scale Used Numeric (0 - 10) Description Aching Description- Other Deep Other Pain Aggravating Factors Poor Posture. Neck Pain Location Details Bilateral UT/Posterior Scalenes Intensity 4 Scale Used Numeric (0 - 10) Other Pain Aggravating Factors Poor Posture. PT-OP-F Manual Assessment Start: 02/02/24 20:06 Freq: Status: Active Protocol: Document 02/08/24 08:20 LRN (Rec: 02/08/24 09:13 LRN [id number]) Manual Assessments Soft Tissue Assessment Soft Tissue Mobility Assessment Bilateral tight neck and shoulder inferior to acromion. PT-OP-H Neuro Start: 02/02/24 20:06 Freq: Status: Active Protocol: Document 02/08/24 08:20 LRN (Rec: 02/08/24 09:13 LRN [id number]) Sensation Evaluation Gross Sensation Gross Sensation WNL Comments Summary Comments Pt reporting numbness in left middle section of mandible after a jaw surgery. PT-OP-J Posture/Palpation/Skin Start: 02/02/24 20:06 Freq: Status: Active Protocol: Document 02/08/24 08:20 LRN (Rec: 02/08/24 09:13 LRN [id number]) Posture Evaluation Position Sitting Head/C-Spine Posture Forward Head T-Spine Posture Increased Kyphosis Shoulder Posture (L) Rounded,(R) Rounded Comments Posture Comments ........ After jaw surgerhas numbness in mandible on the L side (see drawing). PT-OP-K Range of Motion Start: 02/02/24 20:06 Freq: Status: Active Protocol: Document 02/08/24 08:20 LRN (Rec: 02/08/24 09:13 LRN [id number]) Cervical Spine Range of Motion Cervical Spine Active Degrees Testing Position Sitting Flexion 25 Extension 25 Rotation Left 20 Rotation Right 30 Lateral Flexion Left 10 Lateral Flexion Right 10 ROM Limitations Pain Comments Pain is worse on the L with all motions. Shoulder Goniometric Range of Motion Shoulder Right Active Testing Position Sitting External Rotation at 0 degrees Abduction 80 Internal Rotation Behind Back (text) T6 Comments ER reaching behind head - T2. Pain in neck with ER. Left Active Testing Position Sitting Flexion 160 Extension 40 Abduction 170 External Rotation at 0 degrees Abduction 80 Internal Rotation Behind Back (text) T7 Comments ER reaching behind head - T2 PT-OP-L Special Tests Start: 02/02/24 20:06 Freq: Status: Active Protocol: Document 02/08/24 08:20 LRN (Rec: 02/08/24 09:13 LRN [id number]) Special Tests Cervical Spine Special Tests Passive Neck Flexion Test Results + bilaterally Comments incr neck/upper shoulder pain Traction Test Results + bilaterally Comments decr in sujit shoulder pain Spurling's Test Test Results + bilaterally Comments incr pain mainly L neck pain Foraminal Compression Test Results + Comments incr neck/shoulder pain PT-OP-M Strength Start: 02/02/24 20:06 Freq: Status: Active Protocol: Document 02/08/24 08:20 LRN (Rec: 02/08/24 09:13 LRN [id number]) Cervical Spine Strength Cervical Spine Manual Muscle Testing Flexion (C1-2) 5 Normal Extension 5 Normal Shoulder Strength Shoulder Manual Muscle Testing Right Comments Generally 5/5 Left Comments Generally 5/5 PT-OP-Q Treatments Start: 02/02/24 20:06 Freq: Status: Active Protocol: Document 02/08/24 08:20 LRN (Rec: 02/08/24 09:13 LRN [id number]) Self-Care/Home Management Treatment Education Other Education Discussed results of evaluation, goals, treatment, and plan of care (POC) with pt , attendance/cx/dns policy; pt agreeable to evaluation, goals, treatment, attendance/ cx/dns policy and POC. Activities Self-Care/Home Management Activities Issued & reviewed HEP: Cervical AROM: extension, rotation, retract/neck elongation. PT-OP-T Assessment and Plan Start: 02/02/24 20:06 Freq: Status: Active Protocol: Document 02/08/24 08:20 LRN (Rec: 02/08/24 09:13 LRN [id number]) Physical Therapy Assessment Rehab Potential Rehabilitation Potential Good Evaluation Complexity Number of Personal Factors/Comorbidities 3 or More Number of Body Systems Impaired 4 or More Clinical Presentation at Evaluation Evolving Impairments Impairments Activity Tolerance,Pain, Posture,ROM,Strength,Transfers Goals Two Impairment Decreased C. AROM Mental Health Nurse Goal (LTG) Improve C. AROM to improve tolerance to playing violin. LTG Duration 02/16/24 One Impairment Lacks self care HEP for neck/ shoulder/core ex's. Short Term Goal (STG) Pt will be able to manage her pain with use of ice/heat/ positioning and if appropriate a self cervical gentle traction unit. STG Duration 02/13/24 Fdc Goal (LTG) Pt will be independent in an effective self care HEP for neck/shoulder ROM/ strengthening and upper/lower core ex's. LTG Duration 02/16/24 Assessment Summary Assessment Pt is a 68 yo female who attends, wanting a HEP that she can take with her on a vacation trip lasting to the end of May. The pt is plans to return to therapy if she is not able to return to function on her HEP. The pt c /o bilateral neck & shoulder pain limiting her ability to turn her head to violin play, drive, lift objects, sew, and sometimes sleep. Her bilateral shoulder pain limits her in her ability to do repetitious movement (with her R dominant hand), gardening/ digging/hammering/scubbing floors/sewing. The pt is limited in neck mobility and mildly in shoulder mobility. Her neck strength for flex/ext and bilateral shoulder strength is normal, assessment of other cervical motions will be completed at her next visit. The pt will benefit from skilled physical therapy for cervical and shoulder ROM ex's and neck/shoulder/upper & lower core stability. Physical Therapy Plan Frequency and Duration Frequency of Treatment 3x/Week Duration of treatment (weeks) 1 Plan of Care Start Date 02/08/24 Plan of Care End Date 02/16/24 Therapeutic Interventions Therapeutic Interventions Coordination Training,Home Exercise Program,Manual Therapy,Neuromuscular Re- education,Self-Care/Home Management,Soft Tissue Mobilization,Therapeutic Activities,Therapeutic Exercises Modalities Electric Stimulation,Hot Packs Other Referrals/Consults Referrals/Consults Recommended Pt may need return to therapy after her return from vacation trip in May 2024. Next Visit Focus/Plan Next Note Type Treatment Note Next Visit Plan DC to HEP in 3 treatment visits. Check V.Artery & Assess sitting C/S strength. Try manual & mechanical C/S traction. Discuss sleeping positions. HEP: ROM neck/shoulders, upper back mobilization. Scapular depressor strengthening. Self care STM, pain management. posture training, self home traction unit. Modalities if needed for pain management (MH/ES)
--- NOTE | 2024-02-13 09:36 | PT.OTN ---
Current Diagnoses Other chronic pain (02/13/24) Pain in unspecified shoulder (02/13/24) Cervicalgia (02/13/24) Physical Therapy Treatment Note PT-OP-A Visit Information Start: 02/02/24 20:06 Freq: Status: Active Protocol: Document 02/13/24 08:21 LRN (Rec: 02/13/24 09:33 LRN [id number]) Out-Patient Physical Therapy Visit Information Visit Information Visit Type Treatment Note Visit Start Time 08:21 Visit Stop Time 09:11 Visit Number 2 Evaluation Information Evaluation Date 02/08/24 Precautions Precautions Hx of vertigo. PT-OP-B Current Condition Start: 02/02/24 20:06 Freq: Status: Active Protocol: Document 02/08/24 08:20 LRN (Rec: 02/08/24 09:13 LRN [id number]) Current Condition History of Current Condition Onset Date 5 yrs ago. Current Complaints neck pn restricts her movement , violin playing, driving ( most looking L) History of Current Condition Exacerbation of neck/shoulder pain after moving to [place] 5 yrs ago and stopped playing the violin, when took up the violin again was only able to play 20 minutes before needing to put it down (used to play for 2-3 hrs). Pain is a constant deep ache, occasionally uses ASA to help sleep and has been recently using hot pack around neck to sleep. Can't turn her head to play violin and has difficulty with driving ( mostly looking left). Currently doing [employer], but last couple of weeks it hurts after ex but feels better afterward. Pain rated 3-5/10 and is constant. She has R shoulder pain (R handed) when doing repetitious movement, not associated to turning of head (gardening/digging/ hammering/scubbing floors, sewing). L radiating shoulder pain with turning her head down to play the violin. When quilting, gets bilateral shoulder pain. Has 20 quilts to make. Sleeping has sometimes tingling in hands and hands go to sleep (usually when hand is on chest), normalizes when stretching out the arms, happening ~1x/2 wks or less, not often. Getting ready to leave on trip to visit grandchildren Feb 19 - . Pt has 2 treatment visits before discharge and would like starting ex's and return later for more therapy if needed. Prior Treatments and Tests Chiropractor in [place] for gentle mobs. Treatment Goals Patient/Caregiver Goals Be put on ex program for neck shoulder to start process of return to ROM. Ultimately would like to be able to play violin again and other activities w/o neck/ shoulder pain. Prior Functional Status Baseline Function- Other Played violin 2 hrs/day, can do only 20 minutes now. Current Functional Impairments (Reported) Functional Limitations- ADL's Can only play violin 20 minutes. s Personal Factors Other Personal Factors That May Effect Arthritis. Therapy/Recovery Hx of Dizziness/vestibular dysfunction, Jaw surgery for sleep apnea ( moved jaw forward). Pt goal of making 20 quilts. Planning on leaving for a 3 month travel trip to visit family. PT-OP-C Subjective Start: 02/02/24 20:06 Freq: Status: Active Protocol: Document 02/13/24 08:21 LRN (Rec: 02/13/24 09:33 LRN [id number]) OP-PT Subjective Patient Comments Patient Comments Purchased a neck pillow and a neck support and is thinking of other things. Neck/shdr pain 5/10. When lying on R side she has R arm numbness/ pain. PT-OP-F Manual Assessment Start: 02/02/24 20:06 Freq: Status: Active Protocol: Document 02/08/24 08:20 LRN (Rec: 02/08/24 09:13 LRN [id number]) Manual Assessments Soft Tissue Assessment Soft Tissue Mobility Assessment Bilateral tight neck and shoulder inferior to acromion. PT-OP-H Neuro Start: 02/02/24 20:06 Freq: Status: Active Protocol: Document 02/08/24 08:20 LRN (Rec: 02/08/24 09:13 LRN [id number]) Sensation Evaluation Gross Sensation Gross Sensation WNL Comments Summary Comments Pt reporting numbness in left middle section of mandible after a jaw surgery. PT-OP-J Posture/Palpation/Skin Start: 02/02/24 20:06 Freq: Status: Active Protocol: Document 02/08/24 08:20 LRN (Rec: 02/08/24 09:13 LRN [id number]) Posture Evaluation Position Sitting Head/C-Spine Posture Forward Head T-Spine Posture Increased Kyphosis Shoulder Posture (L) Rounded,(R) Rounded Comments Posture Comments ........ After jaw surgerhas numbness in mandible on the L side (see drawing). PT-OP-K Range of Motion Start: 02/02/24 20:06 Freq: Status: Active Protocol: Document 02/08/24 08:20 LRN (Rec: 02/08/24 09:13 LRN [id number]) Cervical Spine Range of Motion Cervical Spine Active Degrees Testing Position Sitting Flexion 25 Extension 25 Rotation Left 20 Rotation Right 30 Lateral Flexion Left 10 Lateral Flexion Right 10 ROM Limitations Pain Comments Pain is worse on the L with all motions. Shoulder Goniometric Range of Motion Shoulder Right Active Testing Position Sitting External Rotation at 0 degrees Abduction 80 Internal Rotation Behind Back (text) T6 Comments ER reaching behind head - T2. Pain in neck with ER. Left Active Testing Position Sitting Flexion 160 Extension 40 Abduction 170 External Rotation at 0 degrees Abduction 80 Internal Rotation Behind Back (text) T7 Comments ER reaching behind head - T2 PT-OP-L Special Tests Start: 02/02/24 20:06 Freq: Status: Active Protocol: Document 02/13/24 08:21 LRN (Rec: 02/13/24 09:33 LRN [id number]) Special Tests Cervical Spine Special Tests Vertebral Artery Test Results - bilaterally Comments Rot ROM limited PT-OP-M Strength Start: 02/02/24 20:06 Freq: Status: Active Protocol: Document 02/13/24 08:21 LRN (Rec: 02/13/24 09:33 LRN [id number]) Cervical Spine Strength Cervical Spine Manual Muscle Testing Flexion (C1-2) 3+ Fair+ Comments Strength is 5/5 except as indicated above. PT-OP-Q Treatments Start: 02/02/24 20:06 Freq: Status: Active Protocol: Document 02/13/24 08:21 LRN (Rec: 02/13/24 09:33 LRN [id number]) Therapeutic Exercises Supine Exercises Neck program Supine Exercise Name Neutral posture, neck elong, rot PROM/AROM, neck/torso rot, head clock Side bilateral Resistance Other mvmts: sidelie arm circles Reps/Minutes 3-5x each Standing Exercises Neck program Standing Exercise Name Neutral posture, shrdr rolls, overhead reach>arms IR (palms to ceiling)> Side bilateral Resistance Other mvmt: elbows bent behind shdrs/pams to ceiling Reps/Minutes 3-5x each Self-Care/Home Management Treatment Education Caregiver Education Discussed/reviewed different types of neck stretch supports and traction device. Recomended not the supine neck support for arch in neck. Recommended pneumatic traction around the neck in sitting. Discussed 8#, 10 minute max, if using for quick pain relief , use more than 1x/day appropriate, but not all day. Other Education Issued HEP: 15' Neck Ex program of Lying, and standing exercises. PT-OP-R Modalities Start: 02/02/24 20:06 Freq: Status: Active Protocol: Document 02/13/24 08:21 LRN (Rec: 02/13/24 09:33 LRN [id number]) Spinal Traction Traction Treatment Cervical Method Static Patient Position Hooklying Force Applied (Pounds) 8 Traction Treatment Comment Traction intermittently lost pressure and at times down to 0. Mid setting on height. PT-OP-T Assessment and Plan Start: 02/02/24 20:06 Freq: Status: Active Protocol: Document 02/13/24 08:21 LRN (Rec: 02/13/24 09:33 LRN [id number]) Physical Therapy Assessment Goals Two Impairment Decreased C. AROM Longterm Goal (LTG) Improve C. AROM to improve tolerance to playing violin. LTG Duration 02/16/24 One Impairment Lacks self care HEP for neck/ shoulder/core ex's. Short Term Goal (STG) Pt will be able to manage her pain with use of ice/heat/ positioning and if appropriate a self cervical gentle traction unit. 02/13/24: Discussed different types of neck stretch supports and traction devices. STG Duration 02/13/24 progressed 02/13/24 Longterm Goal (LTG) Pt will be independent in an effective self care HEP for neck/shoulder ROM/ strengthening and upper/lower core ex's. 02/13/24: 15' Neck Ex program : Sitting and standing portion . LTG Duration 02/16/24 progressed 02/13/24 Assessment Summary Assessment Pt is a 68 yo female who attends, wanting a HEP for her neck/R shdr and arm pain > L shdr that she can take with her on a vacation trip lasting to the end of May. Today, pt was negative for V. Artery symptoms and did not have vestibular onset of dizziness. Positive response to C. tx with decr of neck/ shoulder pain that returned when she sat up from traction position (pulling her head fwd ). C/S strength is good except with flexion due to onset of neck/shdr pain. Physical Therapy Plan Frequency and Duration Frequency of Treatment 3x/Week Duration of treatment (weeks) 1 Plan of Care Start Date 02/08/24 Plan of Care End Date 02/16/24 Next Visit Focus/Plan Next Note Type Treatment Note Next Visit Plan DC to HEP in 2 treatment visits. Mechanical C/S traction to end with education on how to transfer w/o creating neck/shdr pain. Discuss sleeping positions. Complete Sitting & Hands/Knees of 15' Neck exercise program. HEP: Self care STM, pain management. posture training, discuss self home traction unit. Modalities if needed for pain management (MH/ES)
--- NOTE | 2024-02-15 16:37 | PT.OTN ---
Current Diagnoses Other chronic pain (02/15/24) Pain in unspecified shoulder (02/15/24) Cervicalgia (02/15/24) Physical Therapy Treatment Note PT-OP-A Visit Information Start: 02/02/24 20:06 Freq: Status: Active Protocol: Document 02/15/24 08:20 LRN (Rec: 02/15/24 09:04 LRN [id number]) Out-Patient Physical Therapy Visit Information Visit Information Visit Type Treatment Note Visit Start Time 08:20 Visit Stop Time 09:01 Visit Number 3 Evaluation Information Evaluation Date 02/08/24 Precautions Precautions Hx of vertigo. PT-OP-B Current Condition Start: 02/02/24 20:06 Freq: Status: Active Protocol: Document 02/08/24 08:20 LRN (Rec: 02/08/24 09:13 LRN [id number]) Current Condition History of Current Condition Onset Date 5 yrs ago. Current Complaints neck pn restricts her movement , violin playing, driving ( most looking L) History of Current Condition Exacerbation of neck/shoulder pain after moving to [place] 5 yrs ago and stopped playing the violin, when took up the violin again was only able to play 20 minutes before needing to put it down (used to play for 2-3 hrs). Pain is a constant deep ache, occasionally uses ASA to help sleep and has been recently using hot pack around neck to sleep. Can't turn her head to play violin and has difficulty with driving ( mostly looking left). Currently doing [employer], but last couple of weeks it hurts after ex but feels better afterward. Pain rated 3-5/10 and is constant. She has R shoulder pain (R handed) when doing repetitious movement, not associated to turning of head (gardening/digging/ hammering/scubbing floors, sewing). L radiating shoulder pain with turning her head down to play the violin. When quilting, gets bilateral shoulder pain. Has 20 quilts to make. Sleeping has sometimes tingling in hands and hands go to sleep (usually when hand is on chest), normalizes when stretching out the arms, happening ~1x/2 wks or less, not often. Getting ready to leave on trip to visit grandchildren Feb 19 - . Pt has 2 treatment visits before discharge and would like starting ex's and return later for more therapy if needed. Prior Treatments and Tests Chiropractor in [place] for gentle mobs. Treatment Goals Patient/Caregiver Goals Be put on ex program for neck shoulder to start process of return to ROM. Ultimately would like to be able to play violin again and other activities w/o neck/ shoulder pain. Prior Functional Status Baseline Function- Other Played violin 2 hrs/day, can do only 20 minutes now. Current Functional Impairments (Reported) Functional Limitations- ADL's Can only play violin 20 minutes. s Personal Factors Other Personal Factors That May Effect Arthritis. Therapy/Recovery Hx of Dizziness/vestibular dysfunction, Jaw surgery for sleep apnea ( moved jaw forward). Pt goal of making 20 quilts. Planning on leaving for a 3 month travel trip to visit family. PT-OP-C Subjective Start: 02/02/24 20:06 Freq: Status: Active Protocol: Document 02/15/24 08:20 LRN (Rec: 02/15/24 09:04 LRN [id number]) OP-PT Subjective Patient Comments Patient Comments States she has gone thru the ex's and has questions. Wants to make today her last day. PT-OP-F Manual Assessment Start: 02/02/24 20:06 Freq: Status: Active Protocol: Document 02/08/24 08:20 LRN (Rec: 02/08/24 09:13 LRN [id number]) Manual Assessments Soft Tissue Assessment Soft Tissue Mobility Assessment Bilateral tight neck and shoulder inferior to acromion. PT-OP-H Neuro Start: 02/02/24 20:06 Freq: Status: Active Protocol: Document 02/08/24 08:20 LRN (Rec: 02/08/24 09:13 LRN [id number]) Sensation Evaluation Gross Sensation Gross Sensation WNL Comments Summary Comments Pt reporting numbness in left middle section of mandible after a jaw surgery. PT-OP-J Posture/Palpation/Skin Start: 02/02/24 20:06 Freq: Status: Active Protocol: Document 02/08/24 08:20 LRN (Rec: 02/08/24 09:13 LRN [id number]) Posture Evaluation Position Sitting Head/C-Spine Posture Forward Head T-Spine Posture Increased Kyphosis Shoulder Posture (L) Rounded,(R) Rounded Comments Posture Comments ........ After jaw surgerhas numbness in mandible on the L side (see drawing). PT-OP-K Range of Motion Start: 02/02/24 20:06 Freq: Status: Active Protocol: Document 02/08/24 08:20 LRN (Rec: 02/08/24 09:13 LRN [id number]) Cervical Spine Range of Motion Cervical Spine Active Degrees Testing Position Sitting Flexion 25 Extension 25 Rotation Left 20 Rotation Right 30 Lateral Flexion Left 10 Lateral Flexion Right 10 ROM Limitations Pain Comments Pain is worse on the L with all motions. Shoulder Goniometric Range of Motion Shoulder Right Active Testing Position Sitting External Rotation at 0 degrees Abduction 80 Internal Rotation Behind Back (text) T6 Comments ER reaching behind head - T2. Pain in neck with ER. Left Active Testing Position Sitting Flexion 160 Extension 40 Abduction 170 External Rotation at 0 degrees Abduction 80 Internal Rotation Behind Back (text) T7 Comments ER reaching behind head - T2 PT-OP-L Special Tests Start: 02/02/24 20:06 Freq: Status: Active Protocol: Document 02/13/24 08:21 LRN (Rec: 02/13/24 09:33 LRN [id number]) Special Tests Cervical Spine Special Tests Vertebral Artery Test Results - bilaterally Comments Rot ROM limited PT-OP-M Strength Start: 02/02/24 20:06 Freq: Status: Active Protocol: Document 02/13/24 08:21 LRN (Rec: 02/13/24 09:33 LRN [id number]) Cervical Spine Strength Cervical Spine Manual Muscle Testing Flexion (C1-2) 3+ Fair+ Comments Strength is 5/5 except as indicated above. PT-OP-Q Treatments Start: 02/02/24 20:06 Freq: Status: Active Protocol: Document 02/15/24 08:20 LRN (Rec: 02/15/24 09:04 LRN [id number]) Therapeutic Exercises Supine Exercises Neck program Supine Exercise Name Hold on head mvmt with ex's due to return of vertigo Reps/Minutes 3-5x Sitting Exercises Sitting neck program Sitting Exercise Name Neck SB, shdr squeeze (scap retract/depression), neck rot w/wgt shift Resistance Other ex's: lateral shdr stretch, shdr AD travis, neck travis (flex, SB, ext) Reps/Minutes 3 SH x 5 Supine neck program Sitting Exercise Name Supine neck program as done in sitting. Standing Exercises Neck program Standing Exercise Name Review of neck prog in stand & sit (against wall) and sit shdr squeeze Reps/Minutes 5 SH x 5 Comments Extra time to determine correct posture with ex Other Exercises 4 pt Neck program Other Exercise Name Neutral neck holds, 4 pt arm lifts fwd,side,back; head lift Reps/Minutes 5 SH x 6 Comments Cued to elongate neck before ex, xtra time to determine tolerated ex. Self-Care/Home Management Treatment Education Caregiver Education Provided & Discussed different types of home cervical traction units as noted on- line and discussed areas of concern (tx at neck an not compression at jaw or chin, not to sleep w/unit & only pump to comfort, no greater cesilia 8# and 10' at time). PT-OP-R Modalities Start: 02/02/24 20:06 Freq: Status: Active Protocol: Document 02/13/24 08:21 LRN (Rec: 02/13/24 09:33 LRN [id number]) Spinal Traction Traction Treatment Cervical Method Static Patient Position Hooklying Force Applied (Pounds) 8 Traction Treatment Comment Traction intermittently lost pressure and at times down to 0. Mid setting on height. PT-OP-T Assessment and Plan Start: 02/02/24 20:06 Freq: Status: Active Protocol: Document 02/15/24 08:20 LRN (Rec: 02/15/24 09:04 LRN [id number]) Physical Therapy Assessment Goals Two Impairment Decreased C. AROM Efficiency Clerk Goal (LTG) Improve C. AROM to improve tolerance to playing violin. 02/15/24: Pt shows very extremely limited mobility C. Rot. LTG Duration 02/16/24 (02/15/24: No significant improvement due to early DC) One Impairment Lacks self care HEP for neck/ shoulder/core ex's. Short Term Goal (STG) Pt will be able to manage her pain with use of ice/heat/ positioning and if appropriate a self cervical gentle traction unit. 02/13/24: Discussed different types of neck stretch supports and traction devices. 02/15/24: Pt planning on purchasing a pneumatic neck traction unit. Handouts issued of a few similar types of units pt could consider. STG Duration 02/13/24 (02/15/24: Partially met goal). Penitentiary Goal (LTG) Pt will be independent in an effective self care HEP for neck/shoulder ROM/ strengthening and upper/lower core ex's. 02/13/24: 15' Neck Ex program : Sitting and standing portion . 02/15/24: Reviewed and modified pt's 15' Neck Ex program in sit, stand, 4 pt. Pt showed good understanding of HEP. LTG Duration 02/16/24 (02/15/24: MET GOAL) Assessment Summary Assessment Pt is a 68 yo female who has been placed on a self care HEP of 15' neck ex program and educated in possible use of a cervical pneumatic traction unit who has been educated in proper use and settings with precautions of use explained. The pt could benefit from further physical therapy to improve her ROM and function upon her return from her vacation if she is not able to improve her ability to play her violin and function. Physical Therapy Plan Discharge Physical Therapy Discharge Reasons Patient Request Discharge Comments Pt will most likely need to complete her program on return from her travels to achieve her goal of return to playing her violin.
== END 2024-02-20 14:41 | disposition home or self-care (01) ==
LOC: PHYS 08:15
PROVIDERS: Family Provider Internal Medicine; PCP Family Medicine; Referring Provider Family Medicine; Visit Provider Family Medicine
DX: M54.2 Cervicalgia (principal); M25.519 Pain in unspecified shoulder; G89.29 Other chronic pain
CPT/HCPCS: 97012; 97110; 97162; 97535

== ENCOUNTER → 2024-08-05 11:12 | Outpatient (CLI) | payer MEDICARE, OTHER, SELFPAY ==
[2024-08-05 11:48] LABS: Add Manual Diff / Slide Review NO; Basophils Absolute Auto 0 /uL (0-100); Basophils Percent Auto 0.5 % (0-2); Eosinophils Absolute Auto 300 /uL (0-450); Eosinophils Percent Auto 3.6 % (2-4); Hematocrit 38.3 % (36-46); Hemoglobin 13.4 g/dL (12.0-16.0); Lymphocytes Absolute Auto 2300 /uL (1100-4500); Lymphocytes Percent Auto 28.1 % (25-40); Mean Corpuscular Hemoglobin 28.1 PG (26-34); Mean Corpuscular Volume 80.4 fL (80-100); Monocytes Absolute Auto 500 /uL (0-900); Monocytes Percent Auto 5.7 % (3-14); Neutrophils Absolute Auto 5100 /uL (1500-7000); Neutrophils Percent Auto 62.1 % (50-75); Platelet Count 241 X10^3/uL (150-400); Red Blood Cell Count 4.77 X10^6/uL (4.0-5.2); Red Cell Distribution Width 14.1 % (11.6-14.8); White Blood Cell Count 8.2 X10^3/uL (4.5-11.0)
[2024-08-05 11:57] LABS: Hemoglobin A1C% w Est Avg Glu 5.1 % (4.0-6.0)
[2024-08-05 12:09] LABS: Cholesterol 191 mg/dL (140-199); HDL Cholesterol 57 mg/dL (40-60); LDL Cholesterol Calculated 86 mg/dL (<100); Triglycerides 239 mg/dL (35-150)
[2024-08-05 12:37] LABS: TSH w/ Reflex to FT4 2.19 uIU/mL (0.47-4.68)
== END ==
PROVIDERS: Family Provider Internal Medicine; PCP Family Medicine; Referring Provider Family Medicine; Visit Provider Family Medicine
DX: R73.03 Prediabetes (principal); E78.5 Hyperlipidemia, unspecified; K62.5 Hemorrhage of anus and rectum; E03.9 Hypothyroidism, unspecified
CPT/HCPCS: 36415; 80061; 83036; 84443; 85025